=== PATIENT | male | born 1940 | race Caucasian/White ===

== ENCOUNTER 2019-07-25 10:04 | Emergency (ER) | payer MEDICARE, SELFPAY ==
[2019-07-25 10:10] VITALS: BP 136/74; PULSE 58; RESP 14; TEMP 35.8; O2SAT 98; BMI 27.6
--- NOTE | 2019-07-25 10:48 | DI.US.S_ITS ---
PROCEDURE: US PERIPH VENOUS LOW EXTREM LT INDICATIONS: LEFT THIGH BRUISE; HX DVT TECHNIQUE: Real-time imaging, as well as color and pulse Doppler interrogation, were performed of the lower extremity deep veins from the inguinal ligament to the popliteal fossa. COMPARISON: US, US VENOUS LEG DPLX UNI LT, 03/18/2017, 10:42. FINDINGS: The common femoral, femoral and popliteal veins are normally compressible, and free of intraluminal thrombus. Color and pulse Doppler demonstrate normal phasic intraluminal flow. There is normal augmentation response to distal compression maneuver. Left posterior thigh in the region of bruising demonstrates a heterogeneous hypoechoic fluid collection measuring 3.3 x 1 x 2.7 cm. No internal vascularity. No surrounding hyperemia. IMPRESSION: 1. No left lower extremity DVT. 2. Left posterior thigh small hematoma. Dictated by: Ed Ortiz M.D. on 07/25/2019 at 11:30 Approved by: Ed Ortiz M.D. on 07/25/2019 at 11:33
[2019-07-25 11:57] LABS: INR 2.4 (0.9-1.3); Prothrombin Time 27.8 SECONDS (10.1-12.7)
--- NOTE | 2019-07-25 12:21 | ED_ITS ---
HPI - Extremity Problem <DA Hernández - Last Filed: 07/25/19 14:05> General Chief complaint: Extremity Problem,Nontraumatic Stated complaint: trying to prevent a blood clot on lower left leg Time Seen by Provider: 07/25/19 11:41 Source: patient Mode of arrival: Ambulatory History of Present Illness HPI Narrative: 79-year-old male with a history of a pacemaker, currently on warfarin, history of DVT, history of PE, and a IVC filter, presents to the emergency department complaining of left leg bruising. He states last week he was lifting bail of hay into the pen to feed the cows when it broke open and he hit his leg against the pen. Patient noticed bruising on the outer side of his left leg that has continuing to progress down his leg. Patient is nervous that he may develop blood clot has this is the same like he had a blood clot in a few years ago. Patient denies any calf pain, severe leg pain, difficulty walking, nausea, vomiting, diarrhea, chest pain, shortness of breath, or other concerns. Related Data Home Medications Medication Instructions Recorded Confirmed [NYQUIL] #0 10/15/16 Zzyquil 1 dose PO BEDTIME PRN 07/25/19 07/25/19 atorvastatin 10 mg PO DAILY 07/25/19 07/25/19 lisinopril 5 mg PO DAILY 07/25/19 07/25/19 sotalol 120 mg PO DAILY 07/25/19 07/25/19 warfarin 07/25/19 Allergies Allergy/AdvReac Type Severity Reaction Status Date / Time No Known Drug Allergies Allergy Verified 07/25/19 10:09 Review of Systems <DA Hernández - Last Filed: 07/25/19 14:05> Review of Systems Narrative: REVIEW OF SYSTEMS: GENERAL: Denies fever or chills. HENT: No head trauma. EYES: No vision changes. CARDIOVASCULAR: No chest pain or syncope. RESPIRATORY: No shortness of breath or cough. GASTROINTESTINAL: No nausea, vomiting, diarrhea, or constipation. MUSCULOSKELETAL: Left leg bruising, see HPI. INTEGUMENTARY: No rash, lesions, or pruritus. NEURO: No numbness, tingling. PSYCH: No behavior or mood changes. Patient History <DA Hernández - Last Filed: 07/25/19 14:05> Medical History DVT (deep venous thrombosis) (Acute) Pulmonary embolism (Acute) Social History Smoking Status: Never smoker Smoking Status: Never smoker Exam <DA Hernández - Last Filed: 07/25/19 14:05> Initial Vital Signs Initial Vital Signs: Vital Signs Temperature 96.4 F L 07/25/19 10:10 Pulse Rate 58 L 07/25/19 10:10 Respiratory Rate 14 07/25/19 10:10 Blood Pressure 136/74 07/25/19 10:10 Pulse Oximetry 98 07/25/19 10:10 PHYSICAL EXAMINATION: GENERAL: Well groomed, alert, and cooperative. Answers questions promptly and appropriately. Vital signs noted. HENT: Normocephalic, atraumatic. Ear canals patent. Oral mucosa is pink and moist. EYES: Conjunctiva pink, sclera white, no periorbital swelling. CHEST: Normal to inspection and without deformities. CARDIOVASCULAR: S1 and S2 sounds normal. Regular rate and rhythm, no murmurs, clicks, or bruits. No pedal edema. RESPIRATORY: Normal respiratory rate, trachea midline, airway patent. No stridor, nasal flaring or accessory muscle use. Lungs are clear in all mcclellan without wheeze, rhonchi, or crackles. GASTROINTESTINAL: Bowel sounds normoactive. Abdomen is soft and non-tender. No organomegaly. MUSCULOSKELETAL: Dark purple ecchymosis noted on lateral aspect of left leg extending past need to calf (appears to be older in color due to small areas of green coloration). No lumps, extreme tenderness, induration, or erythema. No tenderness to knee, leg, calf, ankle, or hip. Normal gait and coordination. Equal tone and mass bilaterally. EXTREMITIES: CMS intact. Moves all extremities. SKIN: Warm, dry, soft, appropriate color for ethnicity. No lesions, rashes, or wounds. NEURO: Alert and Oriented X 3. Good coordination. No ataxia, or sensory deficits, or cognitive issues. PSYCH: Appropriate affect and mood. <Kitty Lambert DO - Last Filed: 07/26/19 13:10> Initial Vital Signs Initial Vital Signs: Vital Signs Temperature 96.4 F L 07/25/19 10:10 Pulse Rate 58 L 07/25/19 10:10 Respiratory Rate 14 07/25/19 10:10 Blood Pressure 136/74 07/25/19 10:10 Pulse Oximetry 98 07/25/19 10:10 Course <DA Hernández - Last Filed: 07/25/19 14:05> Orders Ordered: ED Orders 07/25/19 10:48 US periph venous low extrem lt Stat 07/25/19 11:42 Prothrombin Time INR Stat Consultations Consultation #1: Patient staffed with Dr. Lambert. Vital Signs Vital signs: Vital Signs - 8 hr 07/25/19 10:10 Temperature 96.4 F L Pulse Rate 58 L Respiratory Rate 14 Blood Pressure 136/74 Pulse Oximetry 98 <Kitty Lambert DO - Last Filed: 07/26/19 13:10> Orders Ordered: ED Orders 07/25/19 10:48 US periph venous low extrem lt Stat 07/25/19 11:42 Prothrombin Time INR Stat Vital Signs Vital signs: Vital Signs - 8 hr 07/25/19 10:10 Temperature 96.4 F L Pulse Rate 58 L Respiratory Rate 14 Blood Pressure 136/74 Pulse Oximetry 98 MDM - Extremity (Nontraumatic) <DA Hernández - Last Filed: 07/25/19 14:05> Medical Records Attestation: I reviewed the patient's medical records. Lab Data Attestation: I reviewed the patient's lab results. Labs: Lab Results 07/25/19 Range/Units 11:42 PT 27.8 H (10.1-12.7) SECONDS INR 2.4 H (0.9-1.3) Imaging Data US - DVT: Radiologist's Impression: [address] [address] Ultrasound Report Signed Patient: Rhona SalehDebbieJonathan#: [id number] : 1940Acct:[id number] Age/Sex: 79 / MDate of Service: 07/25/19 Loc: ED Accession Number: [id number] Procedure: US periph venous low extrem lt Ordering Provider: Kitty Lambert D.O. PROCEDURE: US PERIPH VENOUS LOW EXTREM LT INDICATIONS: LEFT THIGH BRUISE; HX DVT TECHNIQUE: Real-time imaging, as well as color and pulse Doppler interrogation, were performed of the lower extremity deep veins from the inguinal ligament to the popliteal fossa. COMPARISON: US, US VENOUS LEG DPLX UNI LT, 03/18/2017, 10:42. FINDINGS: The common femoral, femoral and popliteal veins are normally compressible, and free of intraluminal thrombus. Color and pulse Doppler demonstrate normal phasic intraluminal flow. There is normal augmentation response to distal compression maneuver. Left posterior thigh in the region of bruising demonstrates a heterogeneous hypoechoic fluid collection measuring 3.3 x 1 x 2.7 cm. No internal vascularity. No surrounding hyperemia. IMPRESSION: 1. No left lower extremity DVT. 2. Left posterior thigh small hematoma. Dictated by: Ed Ortiz M.D. on 07/25/2019 at 11:30 Approved by: Ed Ortiz M.D. on 07/25/2019 at 11:33 MDM Narrative Medical decision making narrative: 79-year-old male with a history of DVT and PE, currently on warfarin, and has IVC filter presenting for concerns of a blood clot in his left leg after significant bruising from hitting his leg on a piece of equipment in the barn. Ultrasound is negative for DVT but shows a small hematoma, INR is 2.4 and within therapeutic range. Less concern for DVT due to negative ultrasound, benign exam, and therapeutic INR-however patient has a history of developing a DVT on warfarin so she was strongly encouraged to have a repeat ultrasound done in 1-2 weeks for further evaluation. Differential includes hematoma, contusion, and muscle strain. Hematomas seen on ultrasound. Less likely strain due to lack of significant pain. Less concern for fracture due to lack of pain on examination and patient is able to bear weight without difficulty. Less likely cellulitis due to lack of erythema, wounds, or other suspicious findings. Patient and agreed with plan of care verbalized understanding. I gave patient very strict return precautions for any new or worsening symptoms. <Kitty Lambert, - Last Filed: 07/26/19 13:10> Lab Data Labs: Lab Results 07/25/19 Range/Units 11:42 PT 27.8 H (10.1-12.7) SECONDS INR 2.4 H (0.9-1.3) Discharge Plan Departure Patient Disposition: Home Clinical Impression: Contusion of leg Qualifiers: Encounter type: initial encounter Laterality: left Qualified Code(s): S80.12XA - Contusion of left lower leg, initial encounter Discharge Date/Time: 07/25/19 12:44 Instructions: DI for Contusion Activity Restrictions/Additional Instructions: Thank you for entrusting me with your care today. As discussed, your ultrasound is negative for a blood clot. Your INR is 2.4. Please follow up with your primary care provider in the next week for further evaluation and possible repeat ultrasound. Elevate your leg, you may use warm compresses to help with bruising. Return emergency department if he develops new or worsening symptoms such as increasing pain, calf pain, dizziness, shortness of breath, nausea, vomiting, diarrhea, or other concerns. Prescriptions: No Action [NYQUIL] Qty: 0 RF: 0 atorvastatin 10 mg tablet 10 mg PO DAILY RF: 0 sotalol 80 mg tablet 120 mg PO DAILY RF: 0 warfarin 5 mg tablet RF: 0 lisinopril 5 mg tablet 5 mg PO DAILY RF: 0 Zzyquil 1 dose PO BEDTIME PRN (Reason: Sleep) RF: 0
== END 2019-07-25 12:44 | disposition home or self-care (01) ==
PROVIDERS: Emergency Medicine; Emergency Provider Nurse Practitioner; Family Provider Internal Medicine
DX: S80.12XA Contusion of left lower leg, initial encounter (principal); I82.409 Acute embolism and thrombosis of unspecified deep veins of unspecified lower extremity; I26.99 Other pulmonary embolism without acute cor pulmonale; Z95.0 Presence of cardiac pacemaker; Z79.01 Long term (current) use of anticoagulants
CPT/HCPCS: 36415; 85610; 93971; 99283; 99284

== ENCOUNTER 2020-05-14 09:28 | Observation (INO) | payer MEDICARE, SELFPAY ==
[2020-05-14] VITALS (10 sets, daily range): BP systolic 113–127; BP diastolic 56–90; PULSE 61–68; RESP 14–39; TEMP 36.1–36.4; O2SAT 93–97; BMI 27.0
--- NOTE | 2020-05-14 09:30 | ED_ITS ---
HPI - General Adult General Chief complaint: Chest Pain Stated complaint: Chest hurts,weak legs, no air if exerts Time Seen by Provider: 05/14/20 09:30 Source: patient Mode of arrival: Ambulatory Limitations: no limitations History of Present Illness HPI narrative: Patient is an 79-year-old male. 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 Here for evaluation of to 3 days of what he thinks is a cold. He states that a couple days ago he started to feel chilled. He then became congested was having a cough. Denies any fevers. Did have some upper back pain and thought that it was his kidneys. He started to drink more water and that seems to have improved. He denies any chest pain. Last evening stated that he had to get up from sleeping because he could lay down because he became short of breath and was coughing. He contacted his primary doctor today the patient states refused to see him because of the potential for COVID-19 and instructed him to come to the emergency department. Related Data Home Medications Medication Instructions Recorded Confirmed [NYQUIL] #0 10/15/16 Zzyquil 1 dose PO BEDTIME PRN 07/25/19 07/25/19 atorvastatin 10 mg PO DAILY 07/25/19 07/25/19 lisinopril 5 mg PO DAILY 07/25/19 07/25/19 sotalol 120 mg PO DAILY 07/25/19 07/25/19 warfarin 07/25/19 Allergies Allergy/AdvReac Type Severity Reaction Status Date / Time No Known Drug Allergies Allergy Verified 07/25/19 10:09 Review of Systems Constitutional Constitutional: Reports chills, Reports fatigue, Denies fever(s), Denies headache(s) and Reports lethargy Eyes Eyes: Denies change in vision ENT Ears, Nose, Mouth, and Throat: Denies headache(s) Cardiovascular Cardiovascular: Denies chest pain, Reports dyspnea on exertion and Reports orthopnea Respiratory Respiratory: Reports cough and Reports dyspnea on exertion Gastrointestinal Gastrointestinal: Denies change in bowel habits, Denies nausea and Denies vomiting Genitourinary Genitourinary: Denies dysuria Genitourinary: Denies dysuria Musculoskeletal Musculoskeletal: Denies arthralgias and Denies myalgias Integumentary/Breasts Skin/Breast: Denies lesions and Denies rash Neurologic Neurologic: Denies headache(s) Psychiatric Psychiatric: Denies depression Endocrine Endocrine: Reports fatigue Hematologic/Lymphatic Comments: On anticoagulation Allergic/Immunologic Allergic/Immunologic: Denies urticaria Patient History Medical History Bradycardia DVT (deep venous thrombosis) Pacemaker Pulmonary embolism Social History Smoking Status: Never smoker Smoking Status: Never smoker Exam Initial Vital Signs Initial Vital Signs: Vital Signs Temperature 97.1 F L 05/14/20 09:38 Pulse Rate 65 05/14/20 09:38 Respiratory Rate 18 05/14/20 09:38 Blood Pressure 126/75 05/14/20 09:38 Pulse Oximetry 97 05/14/20 09:38 Const General: cooperative and comfortable Limitations: mental status not altered HENMT Head: normal to inspection and normocephalic Resp Effort & Inspection: normal respiratory effort Auscultation: clear to auscultation bilaterally Cardio Rate: regular rate Rhythm: regular rhythm GI Inspection: non-distended Palpation: soft Back/Spine/Pelvis Back: No CVA tenderness Neuro General: patient alert and patient awake Cognition: normal cognition Speech: speech normal Extrem General: normal to inspection and capillary refill normal Psych Appearance: grossly normal and well kempt Scores GCS Ishaan coma scale eye opening: Spontaneous Ishaan coma scale verbal response: Orientated Ishaan coma scale motor response: Obey commands Ishaan coma scale total score: 15 Course Orders Ordered: ED Orders 05/14/20 09:31 XR chest 1V Stat 05/14/20 09:38 Complete Blood Count AUTO DIFF Stat Comprehensive Metabolic Panel Stat Lipase Stat NT-proBNP (BNP-Adult 18+) Stat Partial Thromboplastin Time Stat Procalcitonin Stat Prothrombin Time INR Stat Troponin & CK Cardiac Panel Stat 05/14/20 09:45 COVID19 Stat 05/14/20 09:47 EKG-12 Lead Stat Discontinued Medications Furosemide (Furosemide 100 Mg/10 Ml Vial) 60 mg IV NOW ONE Stop: 05/14/20 10:22 Last Admin: 05/14/20 10:30 Dose: 60 mg Documented by: Vital Signs Vital signs: Vital Signs - 8 hr 05/14/20 09:38 05/14/20 09:39 05/14/20 10:00 Temperature 97.1 F L Pulse Rate 65 64 61 Respiratory Rate 18 29 H 29 H Blood Pressure 126/75 Pulse Oximetry 97 97 97 05/14/20 10:30 05/14/20 11:00 Temperature Pulse Rate 62 65 Respiratory Rate 39 H 27 H Blood Pressure Pulse Oximetry 94 96 Medical Decision Making Lab Data Lab results reviewed: Yes I reviewed the patient's lab results. Result diagrams: 05/14/20 09:38 05/14/20 09:38 Labs: Lab Results 05/14/20 05/14/20 05/14/20 Range/Units 09:38 09:38 09:38 WBC 6.3 (4.5-11.0) X10^3/uL RBC 5.44 (4.5-5.9) X10^6/uL Hgb 15.1 (13.5-17.5) g/dL Hct 45.5 (41-53) % MCV 83.7 (80-100) fL MCH 27.7 (26-34) PG MCHC 33.1 (30-36) % RDW 15.2 H (11.6-14.8) % Plt Count 210 (150-400) X10^3/uL Neut % (Auto) 57.8 (50-75) % Lymph % (Auto) 29.7 (25-40) % Gem % (Auto) 11.0 (3-14) % Eos % (Auto) 0.8 L (2-4) % Baso % (Auto) 0.7 (0-2) % Neut # (Auto) 3600 (2840-2625) /uL Lymph # (Auto) 1900 (5869-9685) /uL Gem # (Auto) 700 (0-900) /uL Eos # (Auto) 100 (0-450) /uL Baso # (Auto) 0 (0-100) /uL PT 29.9 H (10.1-12.7) SECONDS INR 2.6 H (0.9-1.3) APTT 40 H (26.4-36.2) SECONDS Sodium 136 L (137-145) mmol/L Potassium 4.3 (3.4-5.1) mmol/L Chloride 104 (98-107) mmol/L Carbon Dioxide 30 (22-32) mmol/L BUN 29 H (9-20) mg/dL Creatinine 1.19 (0.66-1.25) mg/dL Estimated GFR 58.8 L (>60) mL/min BUN/Creatinine Ratio 24.4 H (6-22) Glucose 65 L (80-110) mg/dL Calcium 9.2 (8.4-10.2) mg/dL Total Bilirubin 2.5 H (0.2-1.3) mg/dL AST 48 (17-59) IU/L ALT 71 H (<50) IU/L Alkaline Phosphatase 109 (38-126) U/L Total Creatine Kinase 87 (55-170) U/L CK-MB (CK-2) TNP CK-MB (CK-2) Rel Index TNP Troponin I 0.063 H (0.01-0.034) ng/mL NT-Pro-B Natriuret Pep 7590 H (<450) pg/mL Total Protein 7.1 (6.3-8.2) g/dL Albumin 3.9 (3.5-5.0) g/dL Globulin 3.2 (1.7-4.1) g/dL Albumin/Globulin Ratio 1.2 (1.0-2.8) Lipase 92 (23-300) U/L Procalcitonin (<0.5) ng/mL COVID-19 PCR (Negative) 05/14/20 05/14/20 Range/Units 09:38 09:45 WBC (4.5-11.0) X10^3/uL RBC (4.5-5.9) X10^6/uL Hgb (13.5-17.5) g/dL Hct (41-53) % MCV (80-100) fL MCH (26-34) PG MCHC (30-36) % RDW (11.6-14.8) % Plt Count (150-400) X10^3/uL Neut % (Auto) (50-75) % Lymph % (Auto) (25-40) % Gem % (Auto) (3-14) % Eos % (Auto) (2-4) % Baso % (Auto) (0-2) % Neut # (Auto) (3005-7656) /uL Lymph # (Auto) (7209-4870) /uL Gem # (Auto) (0-900) /uL Eos # (Auto) (0-450) /uL Baso # (Auto) (0-100) /uL PT (10.1-12.7) SECONDS INR (0.9-1.3) APTT (26.4-36.2) SECONDS Sodium (137-145) mmol/L Potassium (3.4-5.1) mmol/L Chloride (98-107) mmol/L Carbon Dioxide (22-32) mmol/L BUN (9-20) mg/dL Creatinine (0.66-1.25) mg/dL Estimated GFR (>60) mL/min BUN/Creatinine Ratio (6-22) Glucose (80-110) mg/dL Calcium (8.4-10.2) mg/dL Total Bilirubin (0.2-1.3) mg/dL AST (17-59) IU/L ALT (<50) IU/L Alkaline Phosphatase (38-126) U/L Total Creatine Kinase (55-170) U/L CK-MB (CK-2) CK-MB (CK-2) Rel Index Troponin I (0.01-0.034) ng/mL NT-Pro-B Natriuret Pep (<450) pg/mL Total Protein (6.3-8.2) g/dL Albumin (3.5-5.0) g/dL Globulin (1.7-4.1) g/dL Albumin/Globulin Ratio (1.0-2.8) Lipase (23-300) U/L Procalcitonin < 0.05 (<0.5) ng/mL COVID-19 PCR Negative (Negative) Imaging Data Chest x-ray: Radiologist's Impression: [address] [id number] ReportSigned Patient: Kenny Saleh#: [id number]: 1940Acct:[id number]/Sex: 79 / MDate of Service: 05/14/20Loc: EDAccession Number: [id number] Procedure: XR chest 1V Ordering Provider: Janes Mireles D.O. PROCEDURE: XR CHEST 1V INDICATIONS: congestion TECHNIQUE: One view of the chest was acquired. COMPARISON: [facility], CHEST 2 VIEW, 01/11/2014, 9:01. FINDINGS: Surgical changes and devices: Pacemaker. Lungs and pleura: There is minimal blunting of the costophrenic angles bilaterally. Minimal increased vascularity. Mediastinum: Mediastinal contours appear normal. Heart size is markedly enlarged. Bones and chest wall: No suspicious bony lesions. Overlying soft tissues appear unremarkable. IMPRESSION: Cardiomegaly with minimal increased vascularity and blunting of the costophrenic angles suggestive of edema and trace effusions. Dictated by: Brenda Curiel M.D. on 05/14/2020 at 9:06 Approved by: Brenda Curiel M.D. on 05/14/2020 at 9:07 ECG Data Attestation: I personally reviewed and interpreted this ECG as follows: Prior ECG tracings: not available for review Interpretation: Sinus rhythm Ventricular rate is 62 Occasional atrial pacer spikes Nonspecific ST T wave changes MDM Narrative Medical decision making narrative: Patient is not hypoxic, not hypotensive, his physical exam and labs to include his BNP and chest x-ray are concerning for heart failure. I do not see a prior echocardiogram in our records here. He states he recently had a nuclear stress test and was told that things were unremarkable by his geodetic surveyor. Given his elevation in troponin I do feel that admission for continued diuresis and trending of the troponin and an echocardiogram is warranted. Discussed the case with Dr. duke manager of selection and assessment for Internal Medicine who accepts patient. Discussed the admission with the patient. Both he and his who is at bedside expressed understanding and agreement. Discharge Plan Departure Patient Disposition: Admitted As Inpatient Clinical Impression: CHF (congestive heart failure) Admit Date/Time: 05/14/20 11:03 Admit Provider: Yumiko Duke
[2020-05-14 09:46] LABS: Add Manual Diff / Slide Review NO; Basophils Absolute Auto 0 /uL (0-100); Basophils Percent Auto 0.7 % (0-2); Eosinophils Absolute Auto 100 /uL (0-450); Eosinophils Percent Auto 0.8 % (2-4); Hematocrit 45.5 % (41-53); Hemoglobin 15.1 g/dL (13.5-17.5); Lymphocytes Absolute Auto 1900 /uL (1100-4500); Lymphocytes Percent Auto 29.7 % (25-40); Mean Corpuscular HGB Conc 33.1 % (30-36); Mean Corpuscular Hemoglobin 27.7 PG (26-34); Mean Corpuscular Volume 83.7 fL (80-100); Monocytes Absolute Auto 700 /uL (0-900); Neutrophils Absolute Auto 3600 /uL (1500-7000); Neutrophils Percent Auto 57.8 % (50-75); Platelet Count 210 X10^3/uL (150-400); Red Blood Cell Count 5.44 X10^6/uL (4.5-5.9); Red Cell Distribution Width 15.2 % (11.6-14.8); White Blood Cell Count 6.3 X10^3/uL (4.5-11.0)
[2020-05-14 09:55] LABS: INR 2.6 (0.9-1.3); Prothrombin Time 29.9 SECONDS (10.1-12.7)
[2020-05-14 09:58] LABS: PTT Partial Thromboplastin Tim 40 SECONDS (26.4-36.2)
[2020-05-14 10:01] LABS: Alanine Aminotransferase 71 IU/L (<50); Albumin 3.9 g/dL (3.5-5.0); Albumin Globulin Ratio 1.2 (1.0-2.8); Alkaline Phosphatase 109 U/L (38-126); Aspartate Aminotransferase 48 IU/L (17-59); BUN Creatinine Ratio 24.4 (6-22); Bilirubin Total 2.5 mg/dL (0.2-1.3); Blood Urea Nitrogen 29 mg/dL (9-20); Calcium 9.2 mg/dL (8.4-10.2); Carbon Dioxide 30 mmol/L (22-32); Chloride 104 mmol/L (98-107); Creatine Kinase 87 U/L (55-170); Estimated Glomerular Filt Rate 58.8 mL/min (>60); Globulin 3.2 g/dL (1.7-4.1); Glucose 65 mg/dL (80-110); HEMOLYSIS 23 (0-50); Lipase 92 U/L (23-300); Potassium 4.3 mmol/L (3.4-5.1); Sodium 136 mmol/L (137-145); Total Protein 7.1 g/dL (6.3-8.2)
[2020-05-14 10:13] LABS: NT-proBNP (BNP-Adult 18+) 7590 pg/mL (<450); Troponin I 0.063 ng/mL (0.01-0.034)
[2020-05-14 10:28] LABS: COVID19 -Nasal RAPID Negative (Negative)
[2020-05-14] MEDS: FUROSEMIDE 100 MG/10 ML VIAL 60 MG IV (10:30)
[2020-05-14 10:45] LABS: Procalcitonin < 0.05 ng/mL (<0.5)
--- NOTE | 2020-05-14 13:42 | PC.NURSE ---
Addendum entered by Damian Schultz R.N. 05/16/20 11:05: Disregard this nursing note, this was written on the wrong patient. Original Note: Patient is alert and orientated, VSS, lung sounds dim throughout. Patient was a direct admit. Having reactions to medications and hives on his body. Patient has hives on trunk, arms, and legs. Calomine lotion was ordered and applied for patient comfort and itching. Patient has PICC line that was placed while he had his last hospital visit here. Patient has wounds on both legs that he has been seen by home care for. Dressings were changed to Allevyn on both leg ulcers.
--- NOTE | 2020-05-14 13:49 | PM.HP.1 ---
History of Present Illness History of Present Illness Date Patient Seen: 05/14/20 Chief complaint: Chest hurts,weak legs, no air if exerts Narrative: The patient is an 79-year-old male with a history of paroxysmal atrial fibrillation, pacemaker placement, hyperlipidemia, who was in his usual state of health until a month ago. At that time the patient noted increasing shortness of breath with minimal exertion. 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 Patient is fairly active. He has noted over the past month increasing shortness of breath and being winded. He denies any orthopnea, any lower extremity edema. Patient has had some chest pressure. But no radiation to his neck. No diaphoresis. No nausea or vomiting. He is followed by Dr. Antoine Rowley's visual merchandising assistant in [place]. The patient had a nuclear stress test in December which was normal. His ejection fraction at that time was 43%. One year ago he had an echo which also showed an ejection fraction of 45%. The patient previously was on lisinopril but developed some lightheadedness with that. In the lisinopril was discontinued. The patient was evaluated in the emergency room. He had a mildly elevated troponin at 0.063. His proBNP was greater than 7500. He was given Lasix 60 mg IV x1 with significant urine output. Patient is admitted to the hospital at this time for treatment of congestive heart failure. He denies any palpitations. Although his visual merchandising assistant noted that he did have a 4 beat run of nonsustained VT. Pacemaker was checked and was functional in December. He denies any nausea vomiting or diarrhea. He has no fever. No cough. It no runny nose. No hematemesis ,melena or bright red blood per rectum. Patient History Medical History Bradycardia DVT (deep venous thrombosis) Pacemaker Pulmonary embolism Family & Social History Family History (Updated 05/14/20 @ 13:52 by Yumiko Duke MD) Mother Cancer Other Leukemia Social History: household members spouse Prior Living Arrangements House Safety & Behavioral: Feels Safe in Current Yes Environment Been Physically Hurt or No Threatened By a Person Suicidal Ideation Description None Suicide Plan Description No Plan Tobacco & Substance use: Smoking Status Never smoker alcohol intake never alcohol intake frequency 0-2 drinks per day Substance Use Type does not use Meds Home Medications and Allergies Home Medications Medication Instructions Recorded Confirmed Type atorvastatin 5 mg PO DAILY 07/25/19 05/14/20 History sotalol 120 mg PO DAILY 07/25/19 05/14/20 History warfarin 5 mg PO DAILY 07/25/19 05/14/20 History Allergies Allergy/AdvReac Type Severity Reaction Status Date / Time No Known Drug Allergies Allergy Verified 07/25/19 10:09 Review of Systems Review of Systems ROS: Yes All systems reviewed with the patient and are negative except as otherwise documented Exam Vital Signs (past 8 hours): - 05/14/20 09:38 05/14/20 09:39 05/14/20 10:00 Temperature 97.1 F L Pulse Rate 65 64 61 Respiratory Rate 18 29 H 29 H Blood Pressure 126/75 Pulse Oximetry 97 97 97 05/14/20 10:30 05/14/20 11:00 05/14/20 11:21 Temperature Pulse Rate 62 65 62 Respiratory Rate 39 H 27 H 27 H Blood Pressure 113/90 Pulse Oximetry 94 96 97 Oxygen Delivery Method Room Air Narrative Exam Narrative: Pleasant male in no acute distress HEENT: Normocephalic atraumatic, extraocular muscles are intact oropharynx is clear, neck is supple without adenopathy. There is minimal JVD noted bilaterally Lungs: Decreased breath with occasional scattered crackle Cardiac exam regular rate and rhythm normal S1-S2 Abdomen: Soft nontender nondistended without hepato splenomegaly Extremity: No edema Neuro exam: Cranial nerves are intact, strength is symmetric and equal, sensation is grossly intact, reflexes are equal Psychiatric exam: Patient is awake alert and appropriate, no delusions or hallucinations. Objective Labs Result Diagrams: 05/14/20 09:38 05/14/20 09:38 Labs: Laboratory Results - last 24 hr 05/14/20 05/14/20 05/14/20 09:38 09:38 09:38 WBC 6.3 RBC 5.44 Hgb 15.1 Hct 45.5 MCV 83.7 MCH 27.7 MCHC 33.1 RDW 15.2 H Plt Count 210 Neut % (Auto) 57.8 Lymph % (Auto) 29.7 Russell % (Auto) 11.0 Eos % (Auto) 0.8 L Baso % (Auto) 0.7 Neut # (Auto) 3600 Lymph # (Auto) 1900 Russell # (Auto) 700 Eos # (Auto) 100 Baso # (Auto) 0 PT 29.9 H INR 2.6 H APTT 40 H Sodium 136 L Potassium 4.3 Chloride 104 Carbon Dioxide 30 BUN 29 H Creatinine 1.19 Estimated GFR 58.8 L BUN/Creatinine Ratio 24.4 H Glucose 65 L Calcium 9.2 Total Bilirubin 2.5 H AST 48 ALT 71 H Alkaline Phosphatase 109 Total Creatine Kinase 87 CK-MB (CK-2) TNP CK-MB (CK-2) Rel Index TNP Troponin I 0.063 H NT-Pro-B Natriuret Pep 7590 H Total Protein 7.1 Albumin 3.9 Globulin 3.2 Albumin/Globulin Ratio 1.2 Lipase 92 Procalcitonin COVID-19 PCR 05/14/20 05/14/20 09:38 09:45 WBC RBC Hgb Hct MCV MCH MCHC RDW Plt Count Neut % (Auto) Lymph % (Auto) Russell % (Auto) Eos % (Auto) Baso % (Auto) Neut # (Auto) Lymph # (Auto) Russell # (Auto) Eos # (Auto) Baso # (Auto) PT INR APTT Sodium Potassium Chloride Carbon Dioxide BUN Creatinine Estimated GFR BUN/Creatinine Ratio Glucose Calcium Total Bilirubin AST ALT Alkaline Phosphatase Total Creatine Kinase CK-MB (CK-2) CK-MB (CK-2) Rel Index Troponin I NT-Pro-B Natriuret Pep Total Protein Albumin Globulin Albumin/Globulin Ratio Lipase Procalcitonin < 0.05 COVID-19 PCR Negative Assessment & Plan Assessment & Plan narrative: Impression 1. 79-year-old male admitted to the hospital with acute decompensated systolic heart failure -echocardiogram 1 year ago revealed ejection fraction of 45% -patient previously on an ADDIE-inhibitor which was discontinued due to low blood pressure and dizziness -discussed with Dr. Rowley cardiology. He agreed with plan to continue diuresis. -will resume low-dose ADDIE-inhibitor at 2.5 mg per day 2. Type 2 myocardial infarction -cardiac enzymes 0.068 -patient describes chest pressure intermittently -nuclear stress test in December was normal -will start low-dose aspirin at 81 mg -trend cardiac enzymes 3. Paroxysmal atrial fibrillation -continue sotalol -continue warfarin 4. Hyperlipidemia -continue statin -will check lipids 5. History of pulmonary embolus -on therapeutic warfarin Patient reports he is a full code will note that his record accordingly His at the bedside is his surrogate decision maker and is noted in the record Quality VTE Deep Vein Thrombosis/Pulmonary Embolism Present on Admission: No
--- NOTE | 2020-05-14 14:58 | PC.NURSE ---
Safe hand off from ED. Patient arrived via stretcher and was able to ambulate to the bed w/o assistance. Patient VSS, lung sounds clear. Patient has no complaints of chest pain or dizziness. Patient is SOB on exertion but not while sitting in bed, and is 94% on Room Air.
[2020-05-14 15:09] LABS: BUN Creatinine Ratio 27.7 (6-22); Blood Urea Nitrogen 31 mg/dL (9-20); Calcium 9.5 mg/dL (8.4-10.2); Carbon Dioxide 31 mmol/L (22-32); Chloride 100 mmol/L (98-107); Cholesterol 137 mg/dL (140-199); Estimated Glomerular Filt Rate > 60.0 mL/min (>60); Glucose 123 mg/dL (80-110); HDL Cholesterol 47 mg/dL (40-60); LDL Cholesterol Calculated 63 mg/dL (<100); Sodium 135 mmol/L (137-145); Triglycerides 136 mg/dL (35-150)
[2020-05-14 15:10] LABS: HEMOLYSIS 105 (0-50)
[2020-05-14 15:11] LABS: Potassium 4.9 mmol/L (3.4-5.1)
[2020-05-14 15:21] LABS: Troponin I 0.068 ng/mL (0.01-0.034)
[2020-05-14] MEDS: WARFARIN 5 MG TABLET PO (17:16)
[2020-05-14] MEDS: ATORVASTATIN 20 MG TABLET 5 MG PO (21:37)
[2020-05-14] MEDS: DOCUSATE 100 MG CAPSULE PO (21:38)
[2020-05-14] MEDS: SOTALOL 80 MG TABLET PO (22:16)
--- NOTE | 2020-05-15 01:57 | PC.NURSE ---
0045 Patient assessed. Is alert and oriented. Breath sounds CTA with RA sat of 93%; denies SOB. On continuous oximetry. HRR w/telemetry reading of SR w/1st degree AVB + BBB; denies chest tightness/pain/discomfort. Denies nausea. BT present and abdomen is soft. Denies dysuria, frequency or urgency with urination; using bedside urinal. Is independent with mobility although states he was feeling weak earlier today. Denies pain. Wearing bilateral calf SCD's. Denies any recent falls. Fall risk score is moderate and bed alarm is activated for safety.
[2020-05-15 03:50] VITALS: BP 124/85; PULSE 70; RESP 16; TEMP 36.4; O2SAT 94
[2020-05-15 07:00] VITALS: BP 131/90; PULSE 70; RESP 16; TEMP 35.9; O2SAT 93
[2020-05-15 08:44] LABS: BUN Creatinine Ratio 27.4 (6-22); Blood Urea Nitrogen 31 mg/dL (9-20); Calcium 9.4 mg/dL (8.4-10.2); Carbon Dioxide 31 mmol/L (22-32); Chloride 101 mmol/L (98-107); Estimated Glomerular Filt Rate > 60.0 mL/min (>60); Glucose 127 mg/dL (80-110); HEMOLYSIS < 15 (0-50); Potassium 4.6 mmol/L (3.4-5.1); Sodium 134 mmol/L (137-145)
[2020-05-15 08:54] LABS: Troponin I 0.069 ng/mL (0.01-0.034)
[2020-05-15] MEDS: ASPIRIN EC 81 MG TABLET PO (09:05)
[2020-05-15] MEDS: DOCUSATE 100 MG CAPSULE PO (09:05)
[2020-05-15] MEDS: SODIUM CHLORIDE 0.9% FLUSH 10 ML IV (09:06)
[2020-05-15] MEDS: lisinopriL 5 MG TABLET 2.5 MG PO (09:06)
[2020-05-15] MEDS: FUROSEMIDE 40 MG/4 ML VIAL IV (09:06)
[2020-05-15] MEDS: SOTALOL 80 MG TABLET 40 MG PO (09:07)
[2020-05-15 11:00] VITALS: BP 101/64; PULSE 59; RESP 16; TEMP 36.2; O2SAT 97
--- NOTE | 2020-05-15 11:31 | CM.DANOTE ---
Addendum entered by Isabelle Abrams LPN 05/15/20 11:52: Met with pt and his , at bedside. Both say they are pleased that pt can d/c home today. Pt's spouse does wonder about the potassium that pt takes and how the change in Lasix will affect that. Dr. Duke is updated and says she will address this with them before they leave today. P: home: cardiology and PCP (Dr. Purnima Kaminski) follow-up. Original Note: Discharge Planning/Care Management Case received, EMR reviewed and spoke with Dr. Duke in [place]. She stated she had conferred with pt's grinder outside diameter in [place], medications has been recommended and pt was stable for d/c home today. Payer: Medicare and [employer] Will check in with pt now. Advanced directive, confirm from FAMILY Start: 05/14/20 12:50 Freq: Q24H Status: Active Protocol: Document 05/14/20 12:50 KLP (Rec: 05/14/20 13:00 KLP [id number]) Advance Directive, confirm on record Time 13:00 Person contacted patient Copy received No CM Discharge Assessment Start: 05/15/20 11:30 Freq: Status: Active Protocol: Document 05/15/20 11:30 ITV (Rec: 05/15/20 11:31 ITV [id number]) Discharge Planning Assessment Advance Directives? Yes History Provided By Patient,Medical Record Has Patient been admitted in last 30 No days? Prior Living Arrangements House Household Members spouse Independent with ADL's Yes Is patient alert and oriented? Yes Discharge Plan Home
[2020-05-15 11:40] VITALS: PULSE 59; RESP 16; O2SAT 97
--- NOTE | 2020-05-15 14:31 | PC.NURSE ---
Pt denies SOB with exertion, denies chest pain; Tele SR 1st AV block, pulse regular; fine crackles to left lower posterior; RA; this RN reviewed all CHF instructions, f/u appt, and rx medications, including side effects with pt and pt's ; pt d/c at 1400 via wheelchair with personal belongings in hand to private vehicle
--- NOTE | 2020-05-16 16:43 | PM.DS.1 ---
History of Present Illness History of Present Illness Chief complaint: Chest hurts,weak legs, no air if exerts Narrative: The patient is an 79-year-old male with a history of paroxysmal atrial fibrillation, pacemaker placement, hyperlipidemia, who was in his usual state of health until a month ago. At that time the patient noted increasing shortness of breath with minimal exertion. 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 Patient is fairly active. He has noted over the past month increasing shortness of breath and being winded. He denies any orthopnea, any lower extremity edema. Patient has had some chest pressure. But no radiation to his neck. No diaphoresis. No nausea or vomiting. He is followed by Dr. Antoine Rowley's full time babysitter in [place]. The patient had a nuclear stress test in December which was normal. His ejection fraction at that time was 43%. One year ago he had an echo which also showed an ejection fraction of 45%. The patient previously was on lisinopril but developed some lightheadedness with that. In the lisinopril was discontinued. The patient was evaluated in the emergency room. He had a mildly elevated troponin at 0.063. His proBNP was greater than 7500. He was given Lasix 60 mg IV x1 with significant urine output. Patient is admitted to the hospital at this time for treatment of congestive heart failure. He denies any palpitations. Although his full time babysitter noted that he did have a 4 beat run of nonsustained VT. Pacemaker was checked and was functional in December. He denies any nausea vomiting or diarrhea. He has no fever. No cough. It no runny nose. No hematemesis ,melena or bright red blood per rectum. Discharge Providers Provider Date of admission: 05/14/20 11:03 Discharge Date: 05/15/20 Discharge provider: Yumiko Duke MD Summary Hospital Course Discharge Diagnosis: 1. Acute systolic heart failure, present on admission 2. Paroxysmal atrial fibrillation, on Coumadin 3. Chest pain, with mildly elevated troponin, likely related to acute congestive heart failure 4. Hyperlipidemia 5. History of permanent pacemaker placed Hospital Course: Patient was admitted to the hospital for progressive orthopnea, dyspnea on exertion and acute congestive heart failure. Prior echo revealed an ejection fraction of 40-45%. Case was discussed with his full time babysitter Dr. Rowley who recommended diuresis and low-dose ADDIE-inhibitor. The patient had mildly elevated troponin. However he had a stress test done in December which was completely normal. It was felt that further workup of his mildly elevated troponins would not be indicated at this time. The patient had significant improvement after diuresis. His orthopnea resolved. Dyspnea on exertion improved. He was deemed appropriate for discharge and arrangements were made for him to discharge home. Status at Discharge Cognitive/behavioral status at discharge: oriented Functional status at discharge: independent ambulation Overall status at discharge: patient is back to baseline Time Spent with Patient Time spent: Less than 30 minutes Exam Vital Signs (past 8 hours): Oxygen Delivery Method Room Air Oxygen Flow Rate 0 Narrative Exam Narrative: Delightful gentleman in no obvious distress Lungs: Decreased breath sounds but clear to auscultation Cardiac exam: Regular rate and rhythm normal S1-S2 with a 2/6 systolic ejection Abdomen: Soft and nontender Extremities: No edema Objective Labs Result Diagrams: 05/14/20 09:38 05/15/20 08:15 [facility] Medical History Bradycardia DVT (deep venous thrombosis) Pacemaker Pulmonary embolism Family History (Updated 05/14/20 @ 13:52 by Yumiko Duke MD) Mother Cancer Other Leukemia Social History household members: spouse Smoking Status: Never smoker alcohol intake: never Discharge Assessment & Plan Assessment and Plan Assessment: 1. Acute systolic heart failure 2. Chronic atrial fibrillation 3. Hyperlipidemia 4. Permanent pacemaker placed Plan of Treatment: Patient is discharged home on lisinopril 2.5 plus furosemide 20 mg per day He will follow-up with his full time babysitter in 1-2 weeks Patient is to continue his prior medications Discharge Plan Discharge Plan Patient Disposition: Home Discharge orders & Medications Prescriptions: New lisinopril 5 mg Tablet 2.5 mg PO DAILY Qty: 30 RF: 0 furosemide [Lasix] 20 mg tablet 20 mg PO DAILY Qty: 30 RF: 0 Continued atorvastatin 10 mg tablet 5 mg PO DAILY RF: 0 sotalol 80 mg tablet 120 mg PO DAILY RF: 0 warfarin 5 mg tablet 5 mg PO DAILY RF: 0 Discharge Health Status Multidrug resistant organism: No MDRO Diet/Activity/Treatments Diet: Low-sodium and Low-cholesterol Visit Report/Discharge Packet Instructions: DI for Heart Failure, DI for Prescription Opioid Use Quality VTE Deep Vein Thrombosis/Pulmonary Embolism Present on Admission: No
== END 2020-05-15 14:00 | disposition home or self-care (01) ==
LOC: ED 10:38 → AC 11:14
PROVIDERS: Admitting Provider Internal Medicine; Emergency Provider Emergency Medicine; Family Provider Internal Medicine; Referring Provider Emergency Medicine; Visit Provider Internal Medicine
DX: I50.21 Acute systolic (congestive) heart failure (principal); I21.A1 Myocardial infarction type 2; I48.0 Paroxysmal atrial fibrillation; E78.5 Hyperlipidemia, unspecified; Z86.711 Personal history of pulmonary embolism; Z79.01 Long term (current) use of anticoagulants; Z11.59 Encounter for screening for other viral diseases; Z95.0 Presence of cardiac pacemaker
CPT/HCPCS: 36415; 71045; 80048; 80053; 80061; 82550; 83690; 83880; 84145; 84484; 85025; 85610; 85730; 87635; 93005; 94762; 96374; 99282; 99284; G0378; J1940

== ENCOUNTER → 2020-07-12 10:46 | Outpatient (CLI) | payer MEDICARE, SELFPAY ==
[2020-05-14 12:41] VITALS: BMI 27.0
[2020-07-12 10:59] LABS: Bacteria Urine None Seen; WBC Urine None Seen (0-5/HPF)
[2020-07-12 11:44] LABS: Alanine Aminotransferase 25 IU/L (<50); Albumin 4.1 g/dL (3.5-5.0); Albumin Globulin Ratio 1.4 (1.0-2.8); Alkaline Phosphatase 84 U/L (38-126); Aspartate Aminotransferase 34 IU/L (17-59); BUN Creatinine Ratio 24.2 (6-22); Bilirubin Total 1.4 mg/dL (0.2-1.3); Blood Urea Nitrogen 31 mg/dL (9-20); Calcium 9.3 mg/dL (8.4-10.2); Carbon Dioxide 33 mmol/L (22-32); Chloride 101 mmol/L (98-107); Estimated Glomerular Filt Rate 53.9 mL/min (>60); Globulin 2.9 g/dL (1.7-4.1); Glucose 86 mg/dL (80-110); HEMOLYSIS < 15 (0-50); Potassium 4.7 mmol/L (3.4-5.1); Sodium 137 mmol/L (137-145)
[2020-07-12 12:06] LABS: Appearance Urine UA CLEAR; Bilirubin Urine UA NEGATIVE (NEGATIVE); Color Urine UA YELLOW; Glucose Urine UA NEGATIVE (Negative); Ketones Urine UA NEGATIVE (NEGATIVE); Leukocyte Esterase Urine UA NEGATIVE (NEGATIVE); Nitrite Urine UA NEGATIVE (Negative); Occult Blood Urine UA TRACE-LYSED (Negative); Protein Urine UA NEGATIVE (Negative); Specific Gravity Urine UA >=1.030 (1.000-1.035); Urobilinogen Urine UA 0.2 E.U./dL (0.2)
[2020-07-12 12:10] LABS: Culture Indicated Urine Cult Not Indicated; Mucus Urine 2+ (Negative); RBC Urine 1-5/HPF (0-5/HPF)
== END ==
PROVIDERS: Family Provider Internal Medicine; PCP Family Medicine; Referring Provider Family Medicine; Visit Provider Family Medicine
DX: E85.9 Amyloidosis, unspecified (principal); I10 Essential (primary) hypertension
CPT/HCPCS: 36415; 80053; 81001

== ENCOUNTER → 2020-07-17 12:39 | Outpatient (CLI) | payer MEDICARE, SELFPAY ==
[2020-05-14 12:41] VITALS: BMI 27.0
--- NOTE | 2020-07-17 13:33 | DI.CT.S_ITS ---
PROCEDURE: CT ABDOMEN PELVIS W CON INDICATIONS: left Flank pain TECHNIQUE: After the administration of oral and intravenous contrast, 5 mm thick sections acquired from the diaphragms to the symphysis. 5 mm thick coronal and sagittal reformats were performed. For radiation dose reduction, the following was used: automated exposure control, adjustment of mA and/or kV according to patient size. COMPARISON: [facility], CT, ABDOMEN/PELVIS WITH CONTRAST, 01/18/2014, 15:05. FINDINGS: Image quality: Portions of the lower pelvis are suboptimally evaluated secondary to metallic streak artifact from clips at the level of the prostate bed. ABDOMEN: Lung bases: Lung bases are clear. Heart size is markedly enlarged. Solid organs: Liver is normal in size and enhancement. Steatosis is present. Gallbladder demonstrates dependent calcification without wall thickening, new compared to 2013. Biliary system is non-dilated. Pancreas enhances normally. Spleen is normal in size and enhancement. No adrenal nodules. Kidneys are normal in size and enhancement, without hydronephrosis. Peritoneum and bowel: Stomach, small bowel, and colon loops are normal in caliber and wall thickness. No free fluid or air. Scattered colonic diverticula are present. Nodes and vessels: No retroperitoneal or mesenteric adenopathy. Aorta and inferior vena cava are normal in caliber. IVC filter is unchanged in position. Miscellaneous: No ventral hernias. PELVIS: Genitourinary: Bladder wall thickness is normal. Miscellaneous: No inguinal hernias or adenopathy. Bones: No suspicious bony lesions. No vertebral body compression fractures. IMPRESSION: 1. No renal or ureteral calculi. 2. Diverticulosis. 3. Hepatic steatosis. 4. Cholelithiasis without imaging evidence of cholecystitis. Dictated by: Brenda Curiel M.D. on 07/17/2020 at 17:23 Approved by: Brenda Curiel M.D. on 07/17/2020 at 17:26
== END ==
PROVIDERS: Family Provider Internal Medicine; PCP Family Medicine; Referring Provider Family Medicine; Visit Provider Family Medicine
DX: R10.9 Unspecified abdominal pain (principal); K76.0 Fatty (change of) liver, not elsewhere classified; K80.20 Calculus of gallbladder without cholecystitis without obstruction; K57.90 Diverticulosis of intestine, part unspecified, without perforation or abscess without bleeding; I48.91 Unspecified atrial fibrillation; E85.9 Amyloidosis, unspecified; I10 Essential (primary) hypertension
CPT/HCPCS: 74177; Q9967

== ENCOUNTER → 2020-10-16 10:21 | Outpatient (CLI) | payer MEDICARE, SELFPAY ==
[2020-05-14 12:41] VITALS: BMI 27.0
[2020-10-16 10:29] LABS: RBC Urine None Seen (0-5/HPF)
[2020-10-16 10:58] LABS: Appearance Urine UA CLEAR; Bilirubin Urine UA NEGATIVE (NEGATIVE); Color Urine UA YELLOW; Glucose Urine UA TRACE g/dL (Negative); Ketones Urine UA NEGATIVE (NEGATIVE); Leukocyte Esterase Urine UA NEGATIVE (NEGATIVE); Nitrite Urine UA NEGATIVE (Negative); Occult Blood Urine UA NEGATIVE (Negative); Protein Urine UA NEGATIVE (Negative); Specific Gravity Urine UA >=1.030 (1.000-1.035); Urobilinogen Urine UA 0.2 E.U./dL (0.2); pH Urine UA 5.5 (4.5-8.0)
[2020-10-16 11:14] LABS: Bacteria Urine Few (2-10); Squamous Epithelial Cell Urine 0-1 /HPF (0-5/HPF); WBC Urine 0-1/HPF (0-5/HPF)
[2020-10-16 11:15] LABS: Culture Indicated Urine Cult Not Indicated; Mucus Urine 1+ (Negative)
[2020-10-16 11:39] LABS: Alanine Aminotransferase 20 IU/L (<50); Albumin 3.8 g/dL (3.5-5.0); Albumin Globulin Ratio 1.4 (1.0-2.8); Alkaline Phosphatase 82 U/L (38-126); Aspartate Aminotransferase 27 IU/L (17-59); BUN Creatinine Ratio 26.5 (6-22); Bilirubin Total 1.7 mg/dL (0.2-1.3); Blood Urea Nitrogen 30 mg/dL (9-20); Calcium 9.9 mg/dL (8.4-10.2); Carbon Dioxide 28 mmol/L (22-32); Chloride 102 mmol/L (98-107); Estimated Glomerular Filt Rate > 60.0 mL/min (>60); Globulin 2.8 g/dL (1.7-4.1); Glucose 87 mg/dL (80-110); HEMOLYSIS < 15 (0-50); Potassium 4.8 mmol/L (3.4-5.1); Sodium 136 mmol/L (137-145); Total Protein 6.6 g/dL (6.3-8.2)
== END ==
PROVIDERS: Family Provider Internal Medicine; PCP Family Medicine; Referring Provider Family Medicine; Visit Provider Family Medicine
DX: I10 Essential (primary) hypertension (principal); I50.22 Chronic systolic (congestive) heart failure; N28.9 Disorder of kidney and ureter, unspecified; E85.9 Amyloidosis, unspecified; R10.9 Unspecified abdominal pain
CPT/HCPCS: 36415; 80053; 81001

== ENCOUNTER → 2020-10-18 10:40 | Outpatient (CLI) | payer MEDICARE, SELFPAY ==
[2020-05-14 12:41] VITALS: BMI 27.0
--- NOTE | 2020-10-18 10:41 | DI.US.S_ITS ---
PROCEDURE: US ABDOMEN LIMITED INDICATIONS: LEFT FLANK PAIN TECHNIQUE: Real-time focused scanning was performed of the abdomen, with image documentation. COMPARISON: [facility], CT, CT ABDOMEN PELVIS W CON, 07/17/2020, 13:34. FINDINGS: Scanning is performed at the area of clinical concern. No abnormalities can be seen within the soft tissues of the left flank at this site. IMPRESSION: Negative ultrasound. Dictated by: Mike Szymanski M.D. on 10/18/2020 at 11:53 Approved by: Mike Szymanski M.D. on 10/18/2020 at 11:53
== END ==
PROVIDERS: Family Provider Internal Medicine; PCP Family Medicine; Referring Provider Family Medicine; Visit Provider Family Medicine
DX: R10.9 Unspecified abdominal pain (principal)
CPT/HCPCS: 76705

== ENCOUNTER 2020-12-22 16:10 | Emergency (ER) | payer MEDICARE, SELFPAY ==
[2020-05-14 12:41] VITALS: BMI 27.0
[2020-12-22] VITALS (15 sets, daily range): BP systolic 135–140; BP diastolic 64–93; PULSE 81–118; RESP 16–35; TEMP 36.7–38.4; O2SAT 90–99
[2020-12-22 16:48] LABS: Bacteria Urine None Seen
[2020-12-22 16:52] LABS: Appearance Urine UA CLEAR; Bilirubin Urine UA NEGATIVE (NEGATIVE); Color Urine UA YELLOW; Glucose Urine UA NEGATIVE (Negative); Ketones Urine UA NEGATIVE (NEGATIVE); Leukocyte Esterase Urine UA NEGATIVE (NEGATIVE); Nitrite Urine UA NEGATIVE (Negative); Occult Blood Urine UA 2+ (Negative); Protein Urine UA 1+ (Negative); Urobilinogen Urine UA 0.2 E.U./dL (0.2); pH Urine UA 5.5 (4.5-8.0)
[2020-12-22 17:17] LABS: Culture Indicated Urine Cult Not Indicated; RBC Urine 1-5/HPF (0-5/HPF); WBC Urine 0-1/HPF (0-5/HPF)
--- NOTE | 2020-12-22 17:53 | ED.GENADULT ---
HPI - General Adult <Taty Quijano MD - Last Filed: 12/25/20 17:45> General Chief complaint: Urogenital-Male Stated complaint: Not feeling well/Body Aches Time Seen by Provider: 12/22/20 17:14 Source: patient Mode of arrival: Ambulatory Limitations: no limitations History of Present Illness HPI narrative: With a history of atrial fibrillation anticoagulated on Coumadin,, hypertension, hyperlipidemia, amyloidosis, who presents with 3 days of generally not feeling well noticing urinary incontinence which is unusual for him, mild abdominal pain low-grade fevers chills this morning headachy, myalgias mild cough and mild diaphoresis. He is not complaining of palpitations or overt dyspnea. No gross neurologic findings but he is complaining of generalized weakness. Related Data Home Medications Medication Instructions Recorded Confirmed atorvastatin 10 mg tablet 5 mg PO DAILY 07/25/19 10/16/20 sotalol 80 mg tablet 120 mg PO DAILY 07/25/19 10/16/20 tafamidis 61 mg capsule 61 mg PO DAILY 10/16/20 10/16/20 Previous Rx's Medication Instructions Recorded lisinopril 5 mg tablet 2.5 mg PO DAILY #30 tab 05/15/20 furosemide 20 mg tablet (Lasix) 20 mg PO .COMPLEX #30 tab 07/17/20 warfarin 5 mg tablet 5 mg PO DAILY #90 tab 12/14/20 Allergies Allergy/AdvReac Type Severity Reaction Status Date / Time No Known Drug Allergies Allergy Verified 12/22/20 16:36 Review of Systems <Taty Quijano MD - Last Filed: 12/25/20 17:45> Review of Systems Narrative: Remainder of complete review of systems is otherwise unremarkable except for that included in the HPI. Patient History <Taty Quijano MD - Last Filed: 12/25/20 17:45> Medical History 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 Atrial fibrillation Bradycardia Chicken pox Diverticular disease DVT (deep venous thrombosis) Fractures Hypertension Measles Plantar warts Pulmonary embolism Surgical History Anesthesia History of appendectomy History of broken leg (~2013) History of carpal tunnel surgery (~2014) History of cataract surgery (~2009) History of knee replacement History of prostate surgery (~1999) History of surgery (~2015) Pacemaker (~2003) Family History Mother Cancer Other Leukemia Social History household members: spouse Smoking Status: Never smoker alcohol intake: never Smoking Status: Never smoker alcohol intake frequency: 0-2 drinks per day Substance Use Type: does not use Exam <Taty Quijano MD - Last Filed: 12/25/20 17:45> Narrative Exam Narrative: General: Appears generally unwell, slightly flushed, fatigued but but in no acute distress. HEENT: Moist mucous membranes, normal sclera with reactive pupils, Neck: No JVD, supple Respiratory: Lungs are clear to auscultation, no wheezing no rales no rhonchi. Full and symmetrical air movement Cardiac: Tachycardic with otherwise Regular rhythm no murmurs no bruits Abdomen: Soft, mild tenderness in the lower abdomen without rebound or guarding, good bowel tones, no flank pain Skin: Pale but otherwise Warm and dry, no rashes Neurologic: Grossly neurologically intact with no obvious asymmetries or abnormalities Extremities: No trauma, well perfused, no lower extremity edema Psych: Cooperative, appropriate insight and affect Initial Vital Signs Initial Vital Signs: Vital Signs Temperature 98.1 F 12/22/20 16:27 Pulse Rate 81 12/22/20 16:27 Respiratory Rate 16 12/22/20 16:27 Blood Pressure 140/93 H 12/22/20 16:27 Pulse Oximetry 96 12/22/20 16:27 <Dustin Becker DO - Last Filed: 12/23/20 03:19> Initial Vital Signs Initial Vital Signs: Vital Signs Temperature 98.1 F 12/22/20 16:27 Pulse Rate 81 12/22/20 16:27 Respiratory Rate 16 12/22/20 16:27 Blood Pressure 140/93 H 12/22/20 16:27 Pulse Oximetry 96 12/22/20 16:27 Course <Taty Quijano MD - Last Filed: 12/25/20 17:45> Orders Ordered: Discontinued Medications Fentanyl (Fentanyl 100 Mcg/2 Ml Inj) 50 mcg IV NOW ONE Stop: 12/23/20 01:23 Last Admin: 12/23/20 01:27 Dose: 50 mcg Documented by: SHAHID Furosemide (Furosemide 40 Mg/4 Ml Vial) 40 mg IV NOW ONE Stop: 12/23/20 02:09 Last Admin: 12/23/20 02:37 Dose: 40 mg Documented by: STEVEN Sodium Chloride (Normal Saline 0.9%) 1,000 mls @ 1,000 mls/hr IV BOLUS ONE Stop: 12/22/20 19:03 Last Infusion: 12/22/20 21:36 Dose: 0 mls/hr Documented by: Admin: 12/22/20 18:35 Dose: 1,000 mls/hr Documented by: SHAHID Piperacillin Sod/Tazobactam (Sod 4.5 gm/ Sodium Chloride) 100 mls @ 200 mls/hr IV NOW ONE Stop: 12/22/20 18:52 Last Infusion: 12/22/20 19:42 Dose: 0 mls/hr Documented by: Admin: 12/22/20 19:08 Dose: 200 mls/hr Documented by: SHAHID Lactated Ringer's (Lactated Ringers) 5,433 mls @ 1,811 mls/hr 30 ml/kg infuse over 3 hr (5433 ml) IV NOW ONE Stop: 12/22/20 21:50 Last Infusion: 12/23/20 02:11 Dose: 0 mls/hr Documented by: Admin: 12/22/20 19:22 Dose: 1,811 mls/hr Documented by: SHAHID Amiodarone HCl/Dextrose (Nexterone) 150 mg in 100 mls @ 600 mls/hr IV NOW ONE; Protocol Stop: 12/22/20 21:27 Last Infusion: 12/22/20 22:04 Dose: 0 mls/hr Documented by: Admin: 12/22/20 21:31 Dose: 600 mls/hr Documented by: SHAHID Ketorolac Tromethamine (Ketorolac 30 Mg/Ml Vial) 10 mg IV NOW ONE Stop: 12/22/20 21:07 Last Admin: 12/22/20 21:30 Dose: 10 mg Documented by: SHAHID Vital Signs Vital signs: Vital Signs - 8 hr 12/22/20 19:30 12/22/20 20:05 12/22/20 20:19 Temperature 101.1 F H Pulse Rate 113 H 108 H Respiratory Rate 34 H 32 H Blood Pressure Pulse Oximetry 92 12/22/20 20:30 12/22/20 21:00 12/22/20 21:30 Temperature 100.3 F H Pulse Rate 117 H 110 H 114 H Respiratory Rate 34 H 33 H 35 H Blood Pressure Pulse Oximetry 92 92 93 12/22/20 22:00 12/22/20 22:30 12/22/20 23:00 Temperature Pulse Rate 103 H 97 H 99 H Respiratory Rate Blood Pressure 135/88 Pulse Oximetry 90 L 95 93 12/22/20 23:30 12/23/20 00:00 12/23/20 00:23 Temperature Pulse Rate 105 H 104 H 107 H Respiratory Rate Blood Pressure 140/87 Pulse Oximetry 93 95 89 L 12/23/20 00:24 12/23/20 00:30 12/23/20 01:00 Temperature Pulse Rate 103 H 105 H 105 H Respiratory Rate Blood Pressure 140/87 Pulse Oximetry 93 93 94 12/23/20 01:30 12/23/20 01:57 12/23/20 02:00 Temperature Pulse Rate 124 H 102 H 102 H Respiratory Rate Blood Pressure 118/72 Pulse Oximetry 90 L 91 90 L 12/23/20 02:28 12/23/20 02:30 12/23/20 02:52 Temperature Pulse Rate 102 H 109 H 102 H Respiratory Rate 26 H 26 H Blood Pressure Pulse Oximetry 87 L 92 97 12/23/20 03:00 Temperature Pulse Rate 148 H Respiratory Rate Blood Pressure Pulse Oximetry 89 L <Dustin Becker DO - Last Filed: 12/23/20 03:19> Course Course Narrative: 1830 - Patient received in sign-out from Dr. Quijano. I performed independent history and physical exam. Patient is currently alert, awake and oriented. He is having no chest pain but complains only of some fatigue and shortness of breath and some abdominal pain. Additional Information: patient not having any pain in chest or SOB, but I have been called to the bedside as he has had a run of VT of 8 beats. Patient doing well, soon thereafter had another run. Amiodarone 150mg ordered. Repeat troponin pending. Patient will require transfer. Slight bump in troponin, no pain. No repeat tachycardic events since amiodarone. Hospitalist at [facility] ([facility]) happy to accept, though requests a call to cardiology Dr. De Leon (cardio) has reviewed the case and is happy to consult once patient gets up there. Recommends against heparin for now. Orders Ordered: Discontinued Medications Fentanyl (Fentanyl 100 Mcg/2 Ml Inj) 50 mcg IV NOW ONE Stop: 12/23/20 01:23 Last Admin: 12/23/20 01:27 Dose: 50 mcg Documented by: CTRANNA Furosemide (Furosemide 40 Mg/4 Ml Vial) 40 mg IV NOW ONE Stop: 12/23/20 02:09 Last Admin: 12/23/20 02:37 Dose: 40 mg Documented by: STEVEN Sodium Chloride (Normal Saline 0.9%) 1,000 mls @ 1,000 mls/hr IV BOLUS ONE Stop: 12/22/20 19:03 Last Infusion: 12/22/20 21:36 Dose: 0 mls/hr Documented by: Admin: 12/22/20 18:35 Dose: 1,000 mls/hr Documented by: CTRANNA Piperacillin Sod/Tazobactam (Sod 4.5 gm/ Sodium Chloride) 100 mls @ 200 mls/hr IV NOW ONE Stop: 12/22/20 18:52 Last Infusion: 12/22/20 19:42 Dose: 0 mls/hr Documented by: Admin: 12/22/20 19:08 Dose: 200 mls/hr Documented by: CTRANNA Lactated Ringer's (Lactated Ringers) 5,433 mls @ 1,811 mls/hr 30 ml/kg infuse over 3 hr (5433 ml) IV NOW ONE Stop: 12/22/20 21:50 Last Infusion: 12/23/20 02:11 Dose: 0 mls/hr Documented by: Admin: 12/22/20 19:22 Dose: 1,811 mls/hr Documented by: CTRANNA Amiodarone HCl/Dextrose (Nexterone) 150 mg in 100 mls @ 600 mls/hr IV NOW ONE; Protocol Stop: 12/22/20 21:27 Last Infusion: 12/22/20 22:04 Dose: 0 mls/hr Documented by: Admin: 12/22/20 21:31 Dose: 600 mls/hr Documented by: SHAHID Ketorolac Tromethamine (Ketorolac 30 Mg/Ml Vial) 10 mg IV NOW ONE Stop: 12/22/20 21:07 Last Admin: 12/22/20 21:30 Dose: 10 mg Documented by: SHAHID Vital Signs Vital signs: Vital Signs - 8 hr 12/22/20 19:30 12/22/20 20:05 12/22/20 20:19 Temperature 101.1 F H Pulse Rate 113 H 108 H Respiratory Rate 34 H 32 H Blood Pressure Pulse Oximetry 92 12/22/20 20:30 12/22/20 21:00 12/22/20 21:30 Temperature 100.3 F H Pulse Rate 117 H 110 H 114 H Respiratory Rate 34 H 33 H 35 H Blood Pressure Pulse Oximetry 92 92 93 12/22/20 22:00 12/22/20 22:30 12/22/20 23:00 Temperature Pulse Rate 103 H 97 H 99 H Respiratory Rate Blood Pressure 135/88 Pulse Oximetry 90 L 95 93 12/22/20 23:30 12/23/20 00:00 12/23/20 00:23 Temperature Pulse Rate 105 H 104 H 107 H Respiratory Rate Blood Pressure 140/87 Pulse Oximetry 93 95 89 L 12/23/20 00:24 12/23/20 00:30 12/23/20 01:00 Temperature Pulse Rate 103 H 105 H 105 H Respiratory Rate Blood Pressure 140/87 Pulse Oximetry 93 93 94 12/23/20 01:30 12/23/20 01:57 12/23/20 02:00 Temperature Pulse Rate 124 H 102 H 102 H Respiratory Rate Blood Pressure 118/72 Pulse Oximetry 90 L 91 90 L 12/23/20 02:28 12/23/20 02:30 12/23/20 02:52 Temperature Pulse Rate 102 H 109 H 102 H Respiratory Rate 26 H 26 H Blood Pressure Pulse Oximetry 87 L 92 97 12/23/20 03:00 Temperature Pulse Rate 148 H Respiratory Rate Blood Pressure Pulse Oximetry 89 L Medical Decision Making <Taty Quijano MD - Last Filed: 12/25/20 17:45> Lab Data Result diagrams: 12/22/20 18:22 12/22/20 18:22 Labs: Lab Results 12/22/20 12/22/20 12/22/20 Range/Units 16:42 18:22 18:22 WBC 9.6 (4.5-11.0) X10^3/uL RBC 5.70 (4.5-5.9) X10^6/uL Hgb 16.2 (13.5-17.5) g/dL Hct 49.5 (41-53) % MCV 86.8 (80-100) fL MCH 28.4 (26-34) PG MCHC 32.7 (30-36) % RDW 14.6 (11.6-14.8) % Plt Count 180 (150-400) X10^3/uL Neut % (Auto) 61.2 (50-75) % Lymph % (Auto) 21.9 L (25-40) % [place] % (Auto) 15.8 H (3-14) % Eos % (Auto) 0.3 L (2-4) % Baso % (Auto) 0.8 (0-2) % Neut # (Auto) 5900 (3335-2827) /uL Lymph # (Auto) 2100 (7477-7355) /uL [place] # (Auto) 1500 H (0-900) /uL Eos # (Auto) 0 (0-450) /uL Baso # (Auto) 100 (0-100) /uL PT (10.1-12.7) SECONDS INR (0.9-1.3) Sodium 133 L (137-145) mmol/L Potassium 4.5 (3.4-5.1) mmol/L Chloride 100 (98-107) mmol/L Carbon Dioxide 25 (22-32) mmol/L BUN 25 H (9-20) mg/dL Creatinine 1.23 (0.66-1.25) mg/dL Estimated GFR 56.5 L (>60) mL/min BUN/Creatinine Ratio 20.3 (6-22) Glucose 112 H (80-110) mg/dL Lactate (0.7-2.1) mmol/L Calcium 8.9 (8.4-10.2) mg/dL Magnesium 2.1 (1.6-2.3) mg/dL Total Bilirubin 3.0 H (0.2-1.3) mg/dL AST 30 (17-59) IU/L ALT 22 (<50) IU/L Alkaline Phosphatase 85 (38-126) U/L Troponin I 0.131 H* (0.01-0.034) ng/mL Total Protein 7.2 (6.3-8.2) g/dL Albumin 3.9 (3.5-5.0) g/dL Globulin 3.3 (1.7-4.1) g/dL Albumin/Globulin Ratio 1.2 (1.0-2.8) Lipase 71 (23-300) U/L Urine Color Yellow Urine Appearance Clear Urine pH 5.5 (4.5-8.0) Ur Specific [place] 1.010 (1.000-1.035) Urine Protein 1+ H (Negative) Urine Glucose (UA) Negative (Negative) g/dL Urine Ketones Negative (NEGATIVE) Urine Occult Blood 2+ H (Negative) Urine Nitrate Negative (Negative) Urine Bilirubin Negative (NEGATIVE) Urine Urobilinogen 0.2 (0.2) E.U./dL Ur Leukocyte Esterase Negative (NEGATIVE) Urine RBC 1-5/hpf (0-5/HPF) Urine WBC 0-1/hpf (0-5/HPF) Urine Bacteria None seen (None) Ur Culture Indicated? Cult not indicated SARS-CoV-2 (PCR) (Negative) 12/22/20 12/22/20 12/22/20 Range/Units 18:22 18:35 19:05 WBC (4.5-11.0) X10^3/uL RBC (4.5-5.9) X10^6/uL Hgb (13.5-17.5) g/dL Hct (41-53) % MCV (80-100) fL MCH (26-34) PG MCHC (30-36) % RDW (11.6-14.8) % Plt Count (150-400) X10^3/uL Neut % (Auto) (50-75) % Lymph % (Auto) (25-40) % [place] % (Auto) (3-14) % Eos % (Auto) (2-4) % Baso % (Auto) (0-2) % Neut # (Auto) (5264-6529) /uL Lymph # (Auto) (3640-2945) /uL [place] # (Auto) (0-900) /uL Eos # (Auto) (0-450) /uL Baso # (Auto) (0-100) /uL PT 31.8 H (10.1-12.7) SECONDS INR 2.8 H (0.9-1.3) Sodium (137-145) mmol/L Potassium (3.4-5.1) mmol/L Chloride (98-107) mmol/L Carbon Dioxide (22-32) mmol/L BUN (9-20) mg/dL Creatinine (0.66-1.25) mg/dL Estimated GFR (>60) mL/min BUN/Creatinine Ratio (6-22) Glucose (80-110) mg/dL Lactate 1.4 (0.7-2.1) mmol/L Calcium (8.4-10.2) mg/dL Magnesium (1.6-2.3) mg/dL Total Bilirubin (0.2-1.3) mg/dL AST (17-59) IU/L ALT (<50) IU/L Alkaline Phosphatase (38-126) U/L Troponin I (0.01-0.034) ng/mL Total Protein (6.3-8.2) g/dL Albumin (3.5-5.0) g/dL Globulin (1.7-4.1) g/dL Albumin/Globulin Ratio (1.0-2.8) Lipase (23-300) U/L Urine Color Urine Appearance Urine pH (4.5-8.0) Ur Specific [place] (1.000-1.035) Urine Protein (Negative) Urine Glucose (UA) (Negative) g/dL Urine Ketones (NEGATIVE) Urine Occult Blood (Negative) Urine Nitrate (Negative) Urine Bilirubin (NEGATIVE) Urine Urobilinogen (0.2) E.U./dL Ur Leukocyte Esterase (NEGATIVE) Urine RBC (0-5/HPF) Urine WBC (0-5/HPF) Urine Bacteria (None) Ur Culture Indicated? SARS-CoV-2 (PCR) Negative (Negative) 12/22/20 Range/Units 21:35 WBC (4.5-11.0) X10^3/uL RBC (4.5-5.9) X10^6/uL Hgb (13.5-17.5) g/dL Hct (41-53) % MCV (80-100) fL MCH (26-34) PG MCHC (30-36) % RDW (11.6-14.8) % Plt Count (150-400) X10^3/uL Neut % (Auto) (50-75) % Lymph % (Auto) (25-40) % [place] % (Auto) (3-14) % Eos % (Auto) (2-4) % Baso % (Auto) (0-2) % Neut # (Auto) (3614-4174) /uL Lymph # (Auto) (3693-0405) /uL [place] # (Auto) (0-900) /uL Eos # (Auto) (0-450) /uL Baso # (Auto) (0-100) /uL PT (10.1-12.7) SECONDS INR (0.9-1.3) Sodium (137-145) mmol/L Potassium (3.4-5.1) mmol/L Chloride (98-107) mmol/L Carbon Dioxide (22-32) mmol/L BUN (9-20) mg/dL Creatinine (0.66-1.25) mg/dL Estimated GFR (>60) mL/min BUN/Creatinine Ratio (6-22) Glucose (80-110) mg/dL Lactate (0.7-2.1) mmol/L Calcium (8.4-10.2) mg/dL Magnesium (1.6-2.3) mg/dL Total Bilirubin (0.2-1.3) mg/dL AST (17-59) IU/L ALT (<50) IU/L Alkaline Phosphatase (38-126) U/L Troponin I 0.159 H* (0.01-0.034) ng/mL Total Protein (6.3-8.2) g/dL Albumin (3.5-5.0) g/dL Globulin (1.7-4.1) g/dL Albumin/Globulin Ratio (1.0-2.8) Lipase (23-300) U/L Urine Color Urine Appearance Urine pH (4.5-8.0) Ur Specific [place] (1.000-1.035) Urine Protein (Negative) Urine Glucose (UA) (Negative) g/dL Urine Ketones (NEGATIVE) Urine Occult Blood (Negative) Urine Nitrate (Negative) Urine Bilirubin (NEGATIVE) Urine Urobilinogen (0.2) E.U./dL Ur Leukocyte Esterase (NEGATIVE) Urine RBC (0-5/HPF) Urine WBC (0-5/HPF) Urine Bacteria (None) Ur Culture Indicated? SARS-CoV-2 (PCR) (Negative) ECG Data Interpretation: Atrial fib flutter at a rate of [address] T wave abnormalities PVCs MDM Narrative Medical decision making narrative: 80-year-old gentleman who presents with multiple nonspecific symptoms who appears ill. No obvious etiology on initial presentation. Will continue workup with concern for sepsis with heart rate increasing, respiratory rate increasing, temperature going up an oxygen saturations decreasing all in the initial to our stay prior to being evaluated completely. All workup has been initiated and will begin fluid resuscitation and ceftriaxone until source is better identified. Initial urinalysis does not suggest UTI. <Dustin Becker DO - Last Filed: 12/23/20 03:19> Lab Data Labs: Lab Results 12/22/20 12/22/20 12/22/20 Range/Units 16:42 18:22 18:22 WBC 9.6 (4.5-11.0) X10^3/uL RBC 5.70 (4.5-5.9) X10^6/uL Hgb 16.2 (13.5-17.5) g/dL Hct 49.5 (41-53) % MCV 86.8 (80-100) fL MCH 28.4 (26-34) PG MCHC 32.7 (30-36) % RDW 14.6 (11.6-14.8) % Plt Count 180 (150-400) X10^3/uL Neut % (Auto) 61.2 (50-75) % Lymph % (Auto) 21.9 L (25-40) % [place] % (Auto) 15.8 H (3-14) % Eos % (Auto) 0.3 L (2-4) % Baso % (Auto) 0.8 (0-2) % Neut # (Auto) 5900 (1479-2481) /uL Lymph # (Auto) 2100 (9358-4274) /uL [place] # (Auto) 1500 H (0-900) /uL Eos # (Auto) 0 (0-450) /uL Baso # (Auto) 100 (0-100) /uL PT (10.1-12.7) SECONDS INR (0.9-1.3) Sodium 133 L (137-145) mmol/L Potassium 4.5 (3.4-5.1) mmol/L Chloride 100 (98-107) mmol/L Carbon Dioxide 25 (22-32) mmol/L BUN 25 H (9-20) mg/dL Creatinine 1.23 (0.66-1.25) mg/dL Estimated GFR 56.5 L (>60) mL/min BUN/Creatinine Ratio 20.3 (6-22) Glucose 112 H (80-110) mg/dL Lactate (0.7-2.1) mmol/L Calcium 8.9 (8.4-10.2) mg/dL Magnesium 2.1 (1.6-2.3) mg/dL Total Bilirubin 3.0 H (0.2-1.3) mg/dL AST 30 (17-59) IU/L ALT 22 (<50) IU/L Alkaline Phosphatase 85 (38-126) U/L Troponin I 0.131 H* (0.01-0.034) ng/mL Total Protein 7.2 (6.3-8.2) g/dL Albumin 3.9 (3.5-5.0) g/dL Globulin 3.3 (1.7-4.1) g/dL Albumin/Globulin Ratio 1.2 (1.0-2.8) Lipase 71 (23-300) U/L Urine Color Yellow Urine Appearance Clear Urine pH 5.5 (4.5-8.0) Ur Specific [place] 1.010 (1.000-1.035) Urine Protein 1+ H (Negative) Urine Glucose (UA) Negative (Negative) g/dL Urine Ketones Negative (NEGATIVE) Urine Occult Blood 2+ H (Negative) Urine Nitrate Negative (Negative) Urine Bilirubin Negative (NEGATIVE) Urine Urobilinogen 0.2 (0.2) E.U./dL Ur Leukocyte Esterase Negative (NEGATIVE) Urine RBC 1-5/hpf (0-5/HPF) Urine WBC 0-1/hpf (0-5/HPF) Urine Bacteria None seen (None) Ur Culture Indicated? Cult not indicated SARS-CoV-2 (PCR) (Negative) 12/22/20 12/22/20 12/22/20 Range/Units 18:22 18:35 19:05 WBC (4.5-11.0) X10^3/uL RBC (4.5-5.9) X10^6/uL Hgb (13.5-17.5) g/dL Hct (41-53) % MCV (80-100) fL MCH (26-34) PG MCHC (30-36) % RDW (11.6-14.8) % Plt Count (150-400) X10^3/uL Neut % (Auto) (50-75) % Lymph % (Auto) (25-40) % [place] % (Auto) (3-14) % Eos % (Auto) (2-4) % Baso % (Auto) (0-2) % Neut # (Auto) (5333-9404) /uL Lymph # (Auto) (7455-4497) /uL [place] # (Auto) (0-900) /uL Eos # (Auto) (0-450) /uL Baso # (Auto) (0-100) /uL PT 31.8 H (10.1-12.7) SECONDS INR 2.8 H (0.9-1.3) Sodium (137-145) mmol/L Potassium (3.4-5.1) mmol/L Chloride (98-107) mmol/L Carbon Dioxide (22-32) mmol/L BUN (9-20) mg/dL Creatinine (0.66-1.25) mg/dL Estimated GFR (>60) mL/min BUN/Creatinine Ratio (6-22) Glucose (80-110) mg/dL Lactate 1.4 (0.7-2.1) mmol/L Calcium (8.4-10.2) mg/dL Magnesium (1.6-2.3) mg/dL Total Bilirubin (0.2-1.3) mg/dL AST (17-59) IU/L ALT (<50) IU/L Alkaline Phosphatase (38-126) U/L Troponin I (0.01-0.034) ng/mL Total Protein (6.3-8.2) g/dL Albumin (3.5-5.0) g/dL Globulin (1.7-4.1) g/dL Albumin/Globulin Ratio (1.0-2.8) Lipase (23-300) U/L Urine Color Urine Appearance Urine pH (4.5-8.0) Ur Specific [place] (1.000-1.035) Urine Protein (Negative) Urine Glucose (UA) (Negative) g/dL Urine Ketones (NEGATIVE) Urine Occult Blood (Negative) Urine Nitrate (Negative) Urine Bilirubin (NEGATIVE) Urine Urobilinogen (0.2) E.U./dL Ur Leukocyte Esterase (NEGATIVE) Urine RBC (0-5/HPF) Urine WBC (0-5/HPF) Urine Bacteria (None) Ur Culture Indicated? SARS-CoV-2 (PCR) Negative (Negative) 12/22/20 Range/Units 21:35 WBC (4.5-11.0) X10^3/uL RBC (4.5-5.9) X10^6/uL Hgb (13.5-17.5) g/dL Hct (41-53) % MCV (80-100) fL MCH (26-34) PG MCHC (30-36) % RDW (11.6-14.8) % Plt Count (150-400) X10^3/uL Neut % (Auto) (50-75) % Lymph % (Auto) (25-40) % [place] % (Auto) (3-14) % Eos % (Auto) (2-4) % Baso % (Auto) (0-2) % Neut # (Auto) (0166-0492) /uL Lymph # (Auto) (6868-8274) /uL [place] # (Auto) (0-900) /uL Eos # (Auto) (0-450) /uL Baso # (Auto) (0-100) /uL PT (10.1-12.7) SECONDS INR (0.9-1.3) Sodium (137-145) mmol/L Potassium (3.4-5.1) mmol/L Chloride (98-107) mmol/L Carbon Dioxide (22-32) mmol/L BUN (9-20) mg/dL Creatinine (0.66-1.25) mg/dL Estimated GFR (>60) mL/min BUN/Creatinine Ratio (6-22) Glucose (80-110) mg/dL Lactate (0.7-2.1) mmol/L Calcium (8.4-10.2) mg/dL Magnesium (1.6-2.3) mg/dL Total Bilirubin (0.2-1.3) mg/dL AST (17-59) IU/L ALT (<50) IU/L Alkaline Phosphatase (38-126) U/L Troponin I 0.159 H* (0.01-0.034) ng/mL Total Protein (6.3-8.2) g/dL Albumin (3.5-5.0) g/dL Globulin (1.7-4.1) g/dL Albumin/Globulin Ratio (1.0-2.8) Lipase (23-300) U/L Urine Color Urine Appearance Urine pH (4.5-8.0) Ur Specific [place] (1.000-1.035) Urine Protein (Negative) Urine Glucose (UA) (Negative) g/dL Urine Ketones (NEGATIVE) Urine Occult Blood (Negative) Urine Nitrate (Negative) Urine Bilirubin (NEGATIVE) Urine Urobilinogen (0.2) E.U./dL Ur Leukocyte Esterase (NEGATIVE) Urine RBC (0-5/HPF) Urine WBC (0-5/HPF) Urine Bacteria (None) Ur Culture Indicated? SARS-CoV-2 (PCR) (Negative) Imaging Data CT scan - chest: Radiologist's Impression: Chart Viewer Diagnostics DATE TYPE STATUS REF RANGE/AUTHOR Hx Today 02:08 12/22/20 19:42 Norberto Galeano 12/22/20 19:41 Norberto Galeano 12/22/20 18:06 Norberto Galeano 10/18/20 10:41 Mike Szymanski 07/17/20 13:33 Brenda Curiel 05/14/20 11:03 05/14/20 09:31 Brenda Curiel 07/25/19 10:48 Ed Ortiz 10/16/16 13:33 10/16/16 13:33 10/16/16 11:35 10/16/16 10:03 10/16/16 10:03 80, M010 REG ER, Main ED R08 297.18cm 83.915kg BMI: 9.5kg/m? Urogenital-Male Search Chart No Data to Display ONSET Today 03:00 Anamaria Saleh 80 M [address] [id number] Scan ReportSigned Patient: Anamaria Saleh WMR#: [id number]: 1940Acct:[id number]/Sex: 80 / MDate of Service: 12/22/20Loc: EDAccession Number: [id number] Procedure: CT angio chest PE protocol Ordering Provider: Dustni Becker D.O. PROCEDURE: CT ANGIO CHEST PE PROTOCOL INDICATIONS: chest pain, shortness of breath, cough, fatigue, history PE TECHNIQUE: After the administration of intravenous contrast, 2 mm thick sections acquired from the pulmonary apices to the posterior costophrenic angles. 3-dimensional maximum intensity projection (MIP) coronal and sagittal reformats were then acquired through the thorax. For radiation dose reduction, the following was used: automated exposure control, adjustment of mA and/or kV according to patient size. COMPARISON: [facility], CT, PE STUDY (CTA CHEST), 11/11/2013, 5:07. [facility], CT, CT ABDOMEN PELVIS W CON, 07/17/2020, 13:34. FINDINGS: Image quality: Excellent. Pulmonary arteries: Pulmonary arteries are normal in size, and demonstrate no intraluminal filling defects to suggest central pulmonary embolism. Lungs and pleura: Lungs are slightly edematous best seen at the lung bases. No pleural effusions or pneumothorax. Central and peripheral airways are patent. Mediastinum: Heart size is globally enlarged, mildly, without pericardial effusion. Mild prominence of the right mediastinal and hilar lymph nodes. Thoracic aorta is normal in caliber and enhancement. Esophagus is normal in caliber, without hiatal hernia. Bones and chest wall: No suspicious bony lesions. Ribs and thoracic spine appear intact throughout. Thyroid gland appears normal where well seen. No axillary or supraclavicular adenopathy. Abdomen: Visualized upper abdominal solid organs appear normal in the early arterial phase of enhancement. IMPRESSION: Cardiomegaly, with right-sided cardiac reflux of contrast enhanced blood into the upper intrahepatic inferior vena cava. A pulmonary mass lesion is not seen. Mild adenopathy is present at the right mediastinum and madelyn comprised of an increased number of small nodes confluent in these 2 areas. These may simply be reactive lymph nodes, but they were not previously present in October of 2013 on the most recent comparison chest CT scanning available. Follow-up contrast-enhanced CT scanning of the chest is recommended in 3-6 months to establish chronicity and potential for exchange teller time of these lymph nodes. Dictated by: Norberto Galeano M.D. on 12/22/2020 at 20:51 Approved by: Norberto Galeano M.D. on 12/22/2020 at 20:56 Anamaria Saleh 80 M [address] [id number] Scan ReportSigned Patient: Anamaria Saleh WMR#: [id number]: 1940Acct:[id number]/Sex: 80 / MDate of Service: 12/22/20Loc: EDAccession Number: [id number] Procedure: CT abdomen pelvis w con Ordering Provider: Dustin Becker D.O. PROCEDURE: CT ABDOMEN PELVIS W CON INDICATIONS: abdominal pain, short of breath, sepsis TECHNIQUE: After the administration of intravenous contrast, axial sections acquired from the lung bases to the pubic symphysis. Coronal and sagittal reformats were performed. For radiation dose reduction, the following was used: automated exposure control, adjustment of mA and/or kV according to patient size. COMPARISON: [facility], CT, CT ABDOMEN PELVIS W CON, 07/17/2020, 13:34. [facility], CT, ABDOMEN/PELVIS WITH CONTRAST, 01/18/2014, 15:05. FINDINGS: Image quality: Excellent. Lung bases: Unremarkable. Heart: Global mild cardiomegaly. ABDOMEN: Liver: Unremarkable. Gallbladder: The gallbladder contain several small faintly visualized stones layering dependently. Biliary ducts: Unremarkable. Pancreas: Unremarkable. Spleen: Unremarkable. Adrenal Glands: Unremarkable. Kidneys and Ureters: Unremarkable. Stomach and Bowel: Stomach, small bowel loops, and colon are unremarkable. Peritoneum: No abnormal intraperitoneal fluid. No free air. Ventral Wall: No hernias. Abdominal Nodes: No retroperitoneal or mesenteric adenopathy by size criteria. Vessels: Aorta and inferior vena cava are normal in size. An IVC filter is noted in normal position. PELVIS: Pelvic Organs: Unremarkable. Bladder: Unremarkable. Pelvic Nodes: No enlarged lymph nodes. Miscellaneous: No hernias are seen. Bones: Unremarkable. IMPRESSION: Global cardiomegaly, no definite acute CHF. No pleural effusion at the lung bases. Note is made of an IVC filter in normal position. No acute disease within the abdomen or pelvis. Postsurgical clips suggest prior appendectomy and pelvic lymph node excision. Overall no evidence of acute disease. Dictated by: Norberto Galeano M.D. on 12/22/2020 at 21:16 Approved by: Norberto Galeano M.D. on 12/22/2020 at 21:19 [facility] Narrative Additional Information: patient presents with rather nonspecific complaints but likely underlying infectious etiology which over the course of the visit becomes more clear with development of fever, tachycardia, tachypnea. Patient is treated with septic protocol including fluid resuscitation, antibiotics as well as blood cultures and lactate ordered. He did develop an elevation in troponin and had a few runs of V-tach as noted, which seemed to be abated by amiodarone. Patient requires transfer due to the complexity of his history. His cardiology group is in [place]. We thank the team at [facility] for their assistance in caring for this individual <Dustin Becker DO - Last Filed: 12/23/20 03:19> Critical Care Time Attestation: The high probability of a clinically significant, sudden or life threatening deterioration of the [CV] system(s) required my full and direct attention, intervention and personal management. The aggregate critical care time was [45] minutes. This time is in addition to time spent performing reported procedures but includes the following: [x] Data Review and interpretation [x] Patient assessment and monitoring of vital signs [x] Documentation [x] Medication orders and management Discharge Plan Departure Patient Disposition: [facility] Clinical Impression: Elevated troponin I level, V tach Sepsis Qualifiers: Sepsis type: sepsis due to unspecified organism Sepsis acute organ dysfunction status: unspecified Qualified Code(s): A41.9 - Sepsis, unspecified organism Abdominal pain Qualifiers: Abdominal location: generalized Qualified Code(s): R10.84 - Generalized abdominal pain Prescriptions: No Action furosemide [Lasix] 20 mg tablet 20 mg PO .COMPLEX Qty: 30 RF: 0 warfarin 5 mg tablet 5 mg PO DAILY Qty: 90 RF: 1 tafamidis 61 mg capsule 61 mg PO DAILY RF: 0 lisinopril 5 mg Tablet 2.5 mg PO DAILY Qty: 30 RF: 0 atorvastatin 10 mg tablet 5 mg PO DAILY RF: 0 sotalol 80 mg tablet 120 mg PO DAILY RF: 0 Referrals: Pedro Verma MD [Primary Care Provider] -
--- NOTE | 2020-12-22 18:06 | DI.RAD.S_ITS ---
PROCEDURE: XR CHEST 1V INDICATIONS: tachycardic TECHNIQUE: One view of the chest was acquired. COMPARISON: [facility], , XR CHEST 1V, 05/14/2020, 9:34. [facility], , CHEST 2 VIEW, 01/11/2014, 9:01. FINDINGS: Surgical changes and devices: Dual chamber cardiac pacemaking device and leads remain in normal position Lungs and pleura: Lungs are slightly edematous. No pleural effusions or pneumothorax. Mediastinum: Mediastinal contours appear normal. Heart size is globally enlarged to mild degree. Bones and chest wall: No suspicious bony lesions. Overlying soft tissues appear unremarkable. IMPRESSION: Mild global cardiomegaly, mild acute CHF suspected. Pacemaking device and dual chamber leads normal. Dictated by: Norberto Galeano M.D. on 12/22/2020 at 18:17 Approved by: Norberto Galeano M.D. on 12/22/2020 at 18:18
[2020-12-22] MEDS: SODIUM CHLORIDE 0.9% 1,000 ML 1000 ML IV (18:35)
[2020-12-22 18:48] LABS: Add Manual Diff / Slide Review NO; Basophils Absolute Auto 100 /uL (0-100); Basophils Percent Auto 0.8 % (0-2); Eosinophils Absolute Auto 0 /uL (0-450); Eosinophils Percent Auto 0.3 % (2-4); Hematocrit 49.5 % (41-53); Hemoglobin 16.2 g/dL (13.5-17.5); Lymphocytes Absolute Auto 2100 /uL (1100-4500); Lymphocytes Percent Auto 21.9 % (25-40); Mean Corpuscular HGB Conc 32.7 % (30-36); Mean Corpuscular Hemoglobin 28.4 PG (26-34); Mean Corpuscular Volume 86.8 fL (80-100); Monocytes Absolute Auto 1500 /uL (0-900); Monocytes Percent Auto 15.8 % (3-14); Neutrophils Absolute Auto 5900 /uL (1500-7000); Neutrophils Percent Auto 61.2 % (50-75); Platelet Count 180 X10^3/uL (150-400); Red Cell Distribution Width 14.6 % (11.6-14.8); White Blood Cell Count 9.6 X10^3/uL (4.5-11.0)
[2020-12-22 19:03] LABS: Lactate (Lactic Acid) 1.4 mmol/L (0.7-2.1)
[2020-12-22 19:04] LABS: Alanine Aminotransferase 22 IU/L (<50); Albumin 3.9 g/dL (3.5-5.0); Albumin Globulin Ratio 1.2 (1.0-2.8); Alkaline Phosphatase 85 U/L (38-126); Aspartate Aminotransferase 30 IU/L (17-59); BUN Creatinine Ratio 20.3 (6-22); Blood Urea Nitrogen 25 mg/dL (9-20); Calcium 8.9 mg/dL (8.4-10.2); Carbon Dioxide 25 mmol/L (22-32); Chloride 100 mmol/L (98-107); Estimated Glomerular Filt Rate 56.5 mL/min (>60); Globulin 3.3 g/dL (1.7-4.1); Glucose 112 mg/dL (80-110); HEMOLYSIS < 15 (0-50); Lipase 71 U/L (23-300); Magnesium 2.1 mg/dL (1.6-2.3); Potassium 4.5 mmol/L (3.4-5.1); Sodium 133 mmol/L (137-145); Total Protein 7.2 g/dL (6.3-8.2)
[2020-12-22] MEDS: PIPERACILLIN/TAZO 4.5 GM in SODIUM CHLORIDE 0.9% 100 ML 200 ML IV (19:08)
[2020-12-22 19:16] LABS: Troponin I 0.131 ng/mL (0.01-0.034)
[2020-12-22] MEDS: LACTATED RINGERS 1811 ML IV (19:22)
[2020-12-22 19:26] LABS: INR 2.8 (0.9-1.3); Prothrombin Time 31.8 SECONDS (10.1-12.7)
[2020-12-22 19:39] LABS: COVID19 - ADMIT (NP swab/PCR) Negative (Negative)
--- NOTE | 2020-12-22 19:41 | DI.CT.S_ITS ---
PROCEDURE: CT ANGIO CHEST PE PROTOCOL INDICATIONS: chest pain, shortness of breath, cough, fatigue, history PE TECHNIQUE: After the administration of intravenous contrast, 2 mm thick sections acquired from the pulmonary apices to the posterior costophrenic angles. 3-dimensional maximum intensity projection (MIP) coronal and sagittal reformats were then acquired through the thorax. For radiation dose reduction, the following was used: automated exposure control, adjustment of mA and/or kV according to patient size. COMPARISON: [facility], CT, PE STUDY (CTA CHEST), 11/11/2013, 5:07. [facility], CT, CT ABDOMEN PELVIS W CON, 07/17/2020, 13:34. FINDINGS: Image quality: Excellent. Pulmonary arteries: Pulmonary arteries are normal in size, and demonstrate no intraluminal filling defects to suggest central pulmonary embolism. Lungs and pleura: Lungs are slightly edematous best seen at the lung bases. No pleural effusions or pneumothorax. Central and peripheral airways are patent. Mediastinum: Heart size is globally enlarged, mildly, without pericardial effusion. Mild prominence of the right mediastinal and hilar lymph nodes. Thoracic aorta is normal in caliber and enhancement. Esophagus is normal in caliber, without hiatal hernia. Bones and chest wall: No suspicious bony lesions. Ribs and thoracic spine appear intact throughout. Thyroid gland appears normal where well seen. No axillary or supraclavicular adenopathy. Abdomen: Visualized upper abdominal solid organs appear normal in the early arterial phase of enhancement. IMPRESSION: Cardiomegaly, with right-sided cardiac reflux of contrast enhanced blood into the upper intrahepatic inferior vena cava. A pulmonary mass lesion is not seen. Mild adenopathy is present at the right mediastinum and madelyn comprised of an increased number of small nodes confluent in these 2 areas. These may simply be reactive lymph nodes, but they were not previously present in October of 2013 on the most recent comparison chest CT scanning available. Follow-up contrast-enhanced CT scanning of the chest is recommended in 3-6 months to establish chronicity and potential for exchange trouble shooter time of these lymph nodes. Dictated by: Norberto Galeano M.D. on 12/22/2020 at 20:51 Approved by: Norberto Galeano M.D. on 12/22/2020 at 20:56
--- NOTE | 2020-12-22 19:42 | DI.CT.S_ITS ---
PROCEDURE: CT ABDOMEN PELVIS W CON INDICATIONS: abdominal pain, short of breath, sepsis TECHNIQUE: After the administration of intravenous contrast, axial sections acquired from the lung bases to the pubic symphysis. Coronal and sagittal reformats were performed. For radiation dose reduction, the following was used: automated exposure control, adjustment of mA and/or kV according to patient size. COMPARISON: [facility], CT, CT ABDOMEN PELVIS W CON, 07/17/2020, 13:34. [facility], CT, ABDOMEN/PELVIS WITH CONTRAST, 01/18/2014, 15:05. FINDINGS: Image quality: Excellent. Lung bases: Unremarkable. Heart: Global mild cardiomegaly. ABDOMEN: Liver: Unremarkable. Gallbladder: The gallbladder contain several small faintly visualized stones layering dependently. Biliary ducts: Unremarkable. Pancreas: Unremarkable. Spleen: Unremarkable. Adrenal Glands: Unremarkable. Kidneys and Ureters: Unremarkable. Stomach and Bowel: Stomach, small bowel loops, and colon are unremarkable. Peritoneum: No abnormal intraperitoneal fluid. No free air. Ventral Wall: No hernias. Abdominal Nodes: No retroperitoneal or mesenteric adenopathy by size criteria. Vessels: Aorta and inferior vena cava are normal in size. An IVC filter is noted in normal position. PELVIS: Pelvic Organs: Unremarkable. Bladder: Unremarkable. Pelvic Nodes: No enlarged lymph nodes. Miscellaneous: No hernias are seen. Bones: Unremarkable. IMPRESSION: Global cardiomegaly, no definite acute CHF. No pleural effusion at the lung bases. Note is made of an IVC filter in normal position. No acute disease within the abdomen or pelvis. Postsurgical clips suggest prior appendectomy and pelvic lymph node excision. Overall no evidence of acute disease. Dictated by: Norberto Galeano M.D. on 12/22/2020 at 21:16 Approved by: Norberto Galeano M.D. on 12/22/2020 at 21:19
[2020-12-22] MEDS: KETOROLAC 30 MG/ML VIAL 10 MG IV (21:30)
[2020-12-22] MEDS: AMIODARONE 150 MG/100 ML PIGGYBACK 600 MG IV (21:31)
[2020-12-22 22:11] LABS: Troponin I 0.159 ng/mL (0.01-0.034)
[2020-12-23] VITALS (12 sets, daily range): BP systolic 118–140; BP diastolic 72–87; PULSE 102–148; RESP 26; O2SAT 87–97
[2020-12-23] MEDS: fentaNYL 100 MCG/2 ML INJ 50 MCG IV (01:27)
--- NOTE | 2020-12-23 02:08 | DI.RAD.S_ITS ---
PROCEDURE: XR CHEST 1V INDICATIONS: wet sounding lungs, hypoxia TECHNIQUE: One view of the chest was acquired. COMPARISON: [facility], CR, XR CHEST 1V, 12/22/2020, 18:09. FINDINGS: Surgical changes and devices: Pacemaker Lungs and pleura: Somewhat patchy bilateral infiltrates, generalized vascular congestion. Mediastinum: Mediastinal contours appear normal. Cardiomegaly. Bones and chest wall: No suspicious bony lesions. Overlying soft tissues appear unremarkable. IMPRESSION: Congestive heart failure exacerbation. Comment: Final report is concordant with preliminary interpretation provided by [facility]. Dictated by: Demond Ardon M.D. on 12/23/2020 at 6:29 Approved by: Demond Ardon M.D. on 12/23/2020 at 6:31
--- NOTE | 2020-12-23 02:17 | PC.NURSE ---
Pt noted with respirations 26-30 BPM and SpO2 at 90%. Pt sleeping, denies SOB. Lungs with crackles and wheezes to L lung posteriorly. Dr Becker made aware. RT now at bedside for eval/treat.
[2020-12-23] MEDS: FUROSEMIDE 40 MG/4 ML VIAL IV (02:37)
== END 2020-12-23 03:30 | disposition short-term general hospital (02) ==
PROVIDERS: Emergency Medicine; Emergency Provider Emergency Medicine; Family Provider Internal Medicine; PCP Family Medicine
DX: I47.2 Ventricular tachycardia (principal); R77.8 Other specified abnormalities of plasma proteins; A41.9 Sepsis, unspecified organism; R10.84 Generalized abdominal pain; Z20.822 Contact with and (suspected) exposure to COVID-19
CPT/HCPCS: 36415; 51798; 71045; 71275; 74177; 80053; 81001; 83605; 83690; 83735; 84484; 85025; 85610; 87040; 87635; 93005; 96361; 96365; 96367; 96375; 99284; 99291; C9803; J0282; J1885; J1940; J2543; J3010; Q9967

== ENCOUNTER → 2021-02-19 13:27 | Outpatient (CLI) | payer MEDICARE, SELFPAY ==
[2020-05-14 12:41] VITALS: BMI 27.0
[2021-02-19 15:51] LABS: BUN Creatinine Ratio 29.1 (6-22); Blood Urea Nitrogen 46 mg/dL (9-20); Calcium 9.5 mg/dL (8.4-10.2); Carbon Dioxide 31 mmol/L (22-32); Chloride 96 mmol/L (98-107); Estimated Glomerular Filt Rate 42.3 mL/min (>60); Glucose 134 mg/dL (80-110); HEMOLYSIS < 15 (0-50); Potassium 4.5 mmol/L (3.4-5.1); Sodium 136 mmol/L (137-145)
[2021-02-19 16:00] LABS: NT-proBNP (BNP-Adult 18+) 8380 pg/mL (<450)
== END ==
PROVIDERS: Family Provider Family Medicine; PCP Family Medicine; Referring Provider Nurse Practitioner Family; Visit Provider Nurse Practitioner Family
DX: I42.5 Other restrictive cardiomyopathy (principal); R06.00 Dyspnea, unspecified
CPT/HCPCS: 36415; 80048; 83880

== ENCOUNTER 2021-02-22 11:27 | Outpatient (RCR) | payer MEDICARE, SELFPAY ==
[2020-05-14 12:41] VITALS: BMI 27.0
--- NOTE | 2021-02-22 14:08 | PT.OIE ---
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 Atrial fibrillation Bradycardia Chicken pox Diverticular disease DVT (deep venous thrombosis) Fractures History of appendectomy History of carpal tunnel surgery (~2014) History of cataract surgery (~2009) History of knee replacement History of prostate surgery (~1999) History of surgery (~2015) Hypertension Measles Plantar warts Pulmonary embolism Past Surgical History (Last Reviewed 12/22/20 @ 18:08 by Taty Quijano MD) Anesthesia History of appendectomy History of broken leg (~2013) History of carpal tunnel surgery (~2014) History of cataract surgery (~2009) History of knee replacement History of prostate surgery (~1999) History of surgery (~2015) Pacemaker (~2003) Visit Care Team Role Provider Type Pedro Verma MD Attending Provider Physician Family Provider Primary Care Provider Referring Provider Specialty: [facility] Address: [address] [place] [address] Email: [email or web address] Physical Therapy Initial Evaluation PT-OP-A Visit Information Start: 02/22/21 13:48 Freq: Status: Active Protocol: Document 02/22/21 12:00 DCW (Rec: 02/22/21 14:01 [facility] [id number]) Out-Patient Physical Therapy Visit Information Visit Information Visit Type Initial Evaluation Visit Start Time 12:00 Visit Stop Time 12:45 Total Visit Minutes 45 Visit Number 1 Number of INSTRUCTOR ROBOTICS Visits 0 Evaluation Information Evaluation Date 02/22/21 PT-OP-B Current Condition Start: 02/22/21 13:48 Freq: Status: Active Protocol: Document 02/22/21 12:00 DCW (Rec: 02/22/21 14:01 [facility] [id number]) Current Condition History of Current Condition Onset Date 12/22/20 Current Complaints Shortness of breath, lack of power History of Current Condition Pt is an 80 year old male presenting with skilled therapy one month s/p hospitalization secondary to vague not feeling well. Was transferred to [facility], was experiencing cardiac issues with A-fib, Amyloidosis, and CHF. Notes that since that time, he has had a lack of power and easily becomes short of breath . Has difficulty completing job-related activities, such as feeding cattle. Feels his heart is the main problem, does not believe that he has any general weakness. Prior Treatments and Tests Pt has pacemaker PT-OP-C Subjective Start: 02/22/21 13:48 Freq: Status: Active Protocol: Document 02/22/21 12:00 DCW (Rec: 02/22/21 14:01 DCW [id number]) OP-PT Subjective Patient Comments Patient Comments I don't think I get enough blood pumping, I just don't have any power, and I lose my breath quickly. PT-OP-D Balance Start: 02/22/21 13:48 Freq: Status: Active Protocol: Document 02/22/21 12:00 DCW (Rec: 02/22/21 14:01 DCW [id number]) Balance Tests Romberg Romberg Eyes closed - 15 seconds Single Limb Standing Single Limb- Right 8 Single Limb- Left 10 Tandem Tandem Standing 45+ bilaterally PT-OP-E Functional Tests Start: 02/22/21 13:48 Freq: Status: Active Protocol: Document 02/22/21 12:00 DCW (Rec: 02/22/21 14:01 DCW [id number]) Functional Tests 6 Minute Walk Test Distance 924' Device Used none Comments O2 at 98% after 30 Second Sit to Stand Test Score 11 Comments O2 at 97% after Functional Gait Assessment Score 22/30 Functional Gait Assessment Impairment 20 to <40% Impaired (Score 19- Rating 24) PT-OP-M Strength Start: 02/22/21 13:48 Freq: Status: Active Protocol: Document 02/22/21 12:00 DCW (Rec: 02/22/21 14:01 DCW [id number]) Hip Strength Hip Manual Muscle Testing Right Flexion (L2) 5 Normal Extension (S1) 5 Normal Abduction 5 Normal Adduction 5 Normal Left Flexion (L2) 4 Good Extension (S1) 5 Normal Abduction 5 Normal Adduction 5 Normal Knee Strength Knee Manual Muscle Testing Right Flexion (S2) 5 Normal Extension (L3) 5 Normal Left Flexion (S2) 4 Good Extension (L3) 5 Normal Ankle/Foot Strength Ankle and Foot Manual Muscle Testing Right Dorsiflexion (L4) 5 Normal Plantarflexion (S1) 4+ Good+ Left Dorsiflexion (L4) 5 Normal Plantarflexion (S1) 4+ Good+ PT-OP-T Assessment and Plan Start: 02/22/21 13:48 Freq: Status: Active Protocol: Document 02/22/21 12:00 DCW (Rec: 02/22/21 14:08 DCW [id number]) Physical Therapy Assessment Rehab Potential Rehabilitation Potential Good Evaluation Complexity Number of Personal Factors/Comorbidities 3 or More Number of Body Systems Impaired 1-2 Assessment Summary Assessment Pt presents overall with fairly good strength, balance, and mobility. At or above all age-related norms. Score of 22/30 higher than the 20/8 average for his age group, 11 repetitions in 30 second sit to stand greater than the 10 rep average. Good strength in LEs overall. Distance of 924' during 6 minute walk test well above the 709' cutoff which indicates an increased risk of functional decline in older adults. Through all testing, pt's O2 sat remained 97-98%. Pt's subjective complaints and goals for therapy all revolved around his shortness of breath and his heart. As there is no obvious physical deficits for PT to work on at this time, and with pt's cardiac history, pt would likely benefit more from an assessment with cardiopulmonary rehabilitation . Both patient and his were very much in agreement with this plan. Pt will be discharged from skilled therapy at this time. Physical Therapy Plan Frequency and Duration Frequency of Treatment 1x/Week Duration of Treatment One day Plan of Care Start Date 02/22/21 Plan of Care End Date 02/23/21 Other Referrals/Consults Referrals/Consults Recommended Cardiopulmonary will likely be more beneficial to patient at this time Discharge Physical Therapy Discharge Reasons No Longer Attending PT
--- NOTE | 2021-02-22 14:09 | PT.OPPOC ---
Physical, Occupational & Speech Therapy At [facility] Current Diagnoses Other abnormalities of gait and mobility (02/22/21) Weakness (02/22/21) Visit Care Team Role Provider Type Pedro Verma MD Attending Provider Physician Family Provider Primary Care Provider Referring Provider Specialty: Family Practice Address: [address] [place] [address], [facility] Email: [email or web address] Plan Of Care PT-OP-T Assessment and Plan Start: 02/22/21 13:48 Freq: Status: Active Protocol: Document 02/22/21 12:00 DCW (Rec: 02/22/21 14:08 DCW [id number]) Physical Therapy Assessment Rehab Potential Rehabilitation Potential Good Evaluation Complexity Number of Personal Factors/Comorbidities 3 or More Number of Body Systems Impaired 1-2 Assessment Summary Assessment Pt presents overall with fairly good strength, balance, and mobility. At or above all age-related norms. Score of 22/30 higher than the 20/8 average for his age group, 11 repetitions in 30 second sit to stand greater than the 10 rep average. Good strength in LEs overall. Distance of 924' during 6 minute walk test well above the 709' cutoff which indicates an increased risk of functional decline in older adults. Through all testing, pt's O2 sat remained 97-98%. Pt's subjective complaints and goals for therapy all revolved around his shortness of breath and his heart. As there is no obvious physical deficits for PT to work on at this time, and with pt's cardiac history, pt would likely benefit more from an assessment with cardiopulmonary rehabilitation . Both patient and his were very much in agreement with this plan. Pt will be discharged from skilled therapy at this time. Physical Therapy Plan Frequency and Duration Frequency of Treatment 1x/Week Duration of Treatment One day Plan of Care Start Date 02/22/21 Plan of Care End Date 02/23/21 Other Referrals/Consults Referrals/Consults Recommended Cardiopulmonary will likely be more beneficial to patient at this time Discharge Physical Therapy Discharge Reasons No Longer Attending PT Plan of Care Dates Plan of Care Start Date 02/22/21 Plan of Care End Date 02/23/21 Electronically Signed by: Cali Loyola, PT 02/22/21 1409 Please Sign and Return: I have reviewed this Plan of Care and certify that the skilled therapy services above are required to meet the patient?s needs. Physician Signature Date Printed Name and Credentials Clinical Instructor Signature Printed Name and Credentials
== END 2021-02-26 11:33 | disposition home or self-care (01) ==
LOC: PHYS 11:27
PROVIDERS: Family Provider Family Medicine; PCP Family Medicine; Referring Provider Family Medicine; Visit Provider Family Medicine
DX: R53.1 Weakness (principal); R26.89 Other abnormalities of gait and mobility
CPT/HCPCS: 97161

== ENCOUNTER → 2021-03-08 11:03 | Outpatient (CLI) | payer MEDICARE, SELFPAY ==
[2020-05-14 12:41] VITALS: BMI 27.0
[2021-03-08 13:02] LABS: Add Manual Diff / Slide Review NO; Basophils Absolute Auto 100 /uL (0-100); Basophils Percent Auto 0.9 % (0-2); Eosinophils Absolute Auto 0 /uL (0-450); Eosinophils Percent Auto 0.8 % (2-4); Hematocrit 41.1 % (41-53); Hemoglobin 13.4 g/dL (13.5-17.5); Lymphocytes Absolute Auto 1700 /uL (1100-4500); Lymphocytes Percent Auto 29.1 % (25-40); Mean Corpuscular HGB Conc 32.6 % (30-36); Mean Corpuscular Hemoglobin 27.6 PG (26-34); Mean Corpuscular Volume 84.5 fL (80-100); Monocytes Absolute Auto 700 /uL (0-900); Neutrophils Absolute Auto 3400 /uL (1500-7000); Neutrophils Percent Auto 57.2 % (50-75); Platelet Count 168 X10^3/uL (150-400); Red Blood Cell Count 4.86 X10^6/uL (4.5-5.9)
[2021-03-08 13:31] LABS: Alanine Aminotransferase 40 IU/L (<50); Albumin 3.9 g/dL (3.5-5.0); Albumin Globulin Ratio 1.2 (1.0-2.8); Alkaline Phosphatase 223 U/L (38-126); Aspartate Aminotransferase 39 IU/L (17-59); BUN Creatinine Ratio 25.7 (6-22); Bilirubin Total 3.1 mg/dL (0.2-1.3); Blood Urea Nitrogen 45 mg/dL (9-20); Calcium 9.4 mg/dL (8.4-10.2); Carbon Dioxide 30 mmol/L (22-32); Chloride 101 mmol/L (98-107); Estimated Glomerular Filt Rate 37.6 mL/min (>60); Globulin 3.2 g/dL (1.7-4.1); Glucose 100 mg/dL (80-110); HEMOLYSIS < 15 (0-50); Potassium 4.7 mmol/L (3.4-5.1); Sodium 136 mmol/L (137-145); Total Protein 7.1 g/dL (6.3-8.2)
== END ==
PROVIDERS: Family Provider Family Medicine; PCP Family Medicine; Referring Provider Family Medicine; Visit Provider Family Medicine
DX: R79.1 Abnormal coagulation profile (principal)
CPT/HCPCS: 36415; 80053; 85025

== ENCOUNTER 2021-03-11 13:19 | Inpatient (IN) | payer MEDICARE, SELFPAY ==
[2020-05-14 12:41] VITALS: BMI 27.0
[2021-03-11] VITALS (20 sets, daily range): BP systolic 94–114; BP diastolic 61–81; PULSE 84–113; RESP 15–28; TEMP 36–37.1; O2SAT 86–100; BMI 28.7
--- NOTE | 2021-03-11 13:36 | DI.RAD.S_ITS ---
PROCEDURE: XR CHEST 1V INDICATIONS: SHORT OF BREATH TECHNIQUE: One view of the chest was acquired. COMPARISON: [facility], CT, CT ANGIO CHEST PE PROTOCOL, 12/22/2020, 19:49. [facility], CR, XR CHEST 1V, 12/23/2020, 2:27. FINDINGS: Surgical changes and devices: A cardiac pacemaker is seen with pulse generator in the left chest. Lungs and pleura: No focal airspace opacity is identified. No pleural effusions or pneumothorax. Mediastinum: Mediastinal contours appear normal. The cardiomediastinal silhouette is enlarged. Moderate aortic atherosclerotic calcifications. Bones and chest wall: No suspicious bony lesions. Overlying soft tissues appear unremarkable. Healed right clavicular fracture is noted. IMPRESSION: Cardiomegaly. No acute consolidation or pleural effusion is seen. Dictated by: Benjy Ramon M.D. on 03/11/2021 at 15:01 Approved by: Benjy Ramon M.D. on 03/11/2021 at 15:04
--- NOTE | 2021-03-11 13:43 | ED_ITS ---
HPI - General Adult General Chief complaint: Shortness of Breath/Dyspnea Stated complaint: SOB, Cough, Low O2, Sent from A Time Seen by Provider: 03/11/21 13:28 Source: patient Mode of arrival: Wheelchair History of Present Illness HPI narrative: Patient is an 80-year-old male. Somewhat of a poor historian however was sent over from his primary doctor's office for evaluation of shortness of breath and cough and low O2 saturations. He went to his primary doctor's office today to have his INR drawn. He is on Coumadin. Has a history of atrial fibrillation. Also has a pacemaker in place. While he was there it was noticed that he was visibly short of breath. Here in the emergency department triage states that the patient did appear to be somewhat cyanotic. Was short of breath even with transferring from his wheelchair to his bed. Patient denies chest pain. Unsure exactly how long the symptoms have been going on. Initially patient states that it is been going on for several days if not weeks but apparently it is been worsening and then potentially increased in severity over the past 3 days. He has no chest discomfort. No lower extremity swelling. Reports some lower abdominal discomfort but he states this is not all the time and really only occurs when he lays down occasionally. Approximately 2 months ago he was admitted to an outside facility where he had an extended stay. Family is somewhat unsure as to exactly what transpired during that time but appears that he had a ?infection ?which prolonged his hospital stay. He is unvaccinated against COVID-19. Does not wear oxygen home. Denies any underlyin g lung issues. Related Data Home Medications Medication Instructions Recorded Confirmed atorvastatin 10 mg tablet 5 mg PO BEDTIME 07/25/19 03/11/21 tafamidis 61 mg capsule 61 mg PO BEDTIME 10/16/20 03/11/21 aspirin 81 mg tablet,delayed 81 mg PO QAM 01/21/21 03/11/21 release (Adult Low Dose Aspirin) bumetanide 1 mg tablet 1 mg PO BID 01/21/21 03/11/21 metoprolol succinate 100 mg 100 mg PO BID 01/21/21 03/11/21 tablet,extended release 24 hr warfarin 5 mg tablet 2.5 mg PO QPM tab 03/07/21 03/11/21 Allergies Allergy/AdvReac Type Severity Reaction Status Date / Time No Known Drug Allergies Allergy Verified 01/21/21 14:58 Review of Systems Constitutional Constitutional: Denies fever(s) and Denies headache(s) Eyes Eyes: Reports system reviewed and no additional complaints, except as documented ENT Ears, Nose, Mouth, and Throat: Denies headache(s) Cardiovascular Comments: Denies chest pain Respiratory Respiratory: Reports as per HPI and Reports system reviewed and no additional complaints, except as documented Gastrointestinal Gastrointestinal: Reports system reviewed and no additional complaints, except as documented Genitourinary Genitourinary: Reports system reviewed and no additional complaints, except as documented Musculoskeletal Musculoskeletal: Reports system reviewed and no additional complaints, except as documented Integumentary/Breasts Skin/Breast: Reports system reviewed and no additional complaints, except as documented Neurologic Neurologic: Denies headache(s) Hematologic/Lymphatic On Anticoagulants: Yes Allergic/Immunologic Allergic/Immunologic: Reports system reviewed and no additional complaints, except as documented Patient History Medical History 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 Atrial fibrillation Bradycardia Chicken pox Diverticular disease DVT (deep venous thrombosis) Fractures Hyperbilirubinemia Hypertension Measles Plantar warts Pulmonary embolism Surgical History Anesthesia History of appendectomy History of broken leg (~2013) History of carpal tunnel surgery (~2014) History of cataract surgery (~2009) History of knee replacement History of prostate surgery (~1999) History of surgery (~2015) Pacemaker (~2003) Family History Mother Cancer Other Leukemia Social History household members: spouse Smoking Status: Never smoker alcohol intake: never Smoking Status: Never smoker alcohol intake frequency: 0-2 drinks per day Substance Use Type: does not use Exam Initial Vital Signs Initial Vital Signs: Vital Signs Pulse Rate 105 H 03/11/21 14:01 Respiratory Rate 22 03/11/21 14:01 Blood Pressure 101/75 03/11/21 14:01 Pulse Oximetry 96 03/11/21 14:01 Const General: cooperative, comfortable and well developed HENMT Head: normal to inspection and normocephalic Chest Chest: normal inspection of the chest Resp Effort & Inspection: normal respiratory effort, not labored and tachypneic Auscultation: clear to auscultation bilaterally Cardio Rate: tachycardic Rhythm: abnormal rhythm GI Palpation: soft and No tender Percussion: normal to percussion Skin General: no rashes or lesions noted Neuro General: patient alert, patient awake and moves all extremities Extrem General: normal to inspection and capillary refill normal Psych Appearance: grossly normal and well kempt Course Orders Ordered: ED Orders 03/11/21 13:10 Complete Blood Count AUTO DIFF Stat Comprehensive Metabolic Panel Stat Lactate (Lactic Acid) Stat Lipase Stat NT-proBNP (BNP-Adult 18+) Stat Partial Thromboplastin Time Stat Procalcitonin Stat Prothrombin Time INR Stat Troponin & CK Cardiac Panel Stat 03/11/21 13:36 XR chest 1V Stat 03/11/21 13:37 EKG-12 Lead Stat 03/11/21 13:58 Blood Culture Stat Discontinued Medications Furosemide (Furosemide 100 Mg/10 Ml Vial) 60 mg IV NOW ONE Stop: 03/11/21 16:14 Last Admin: 03/11/21 16:42 Dose: 60 mg Documented by: DONTAE Vital Signs Vital signs: Vital Signs - 8 hr 03/11/21 14:01 03/11/21 14:15 03/11/21 14:30 Pulse Rate 105 H 84 94 H Respiratory Rate 22 20 22 Blood Pressure 101/75 99/76 100/80 Pulse Oximetry 96 100 100 03/11/21 14:45 03/11/21 15:00 03/11/21 15:15 Pulse Rate 98 H 99 H 92 H Respiratory Rate 21 25 H 19 Blood Pressure 114/71 94/61 Pulse Oximetry 99 97 03/11/21 15:30 03/11/21 15:45 03/11/21 16:00 Pulse Rate 92 H 96 H 95 H Respiratory Rate 21 15 23 Blood Pressure Pulse Oximetry 93 94 86 L 03/11/21 16:15 03/11/21 16:30 Pulse Rate 100 H 105 H Respiratory Rate 24 24 Blood Pressure Pulse Oximetry 89 L 96 Medical Decision Making Medical Records Medical records reviewed: Yes I reviewed the patient's medical records. Lab Data Lab results reviewed: Yes I reviewed the patient's lab results. Result diagrams: 03/11/21 13:10 03/11/21 13:10 Labs: Lab Results 0903/11/21 03/11/21 Range/Units 13:10 13:10 13:10 WBC 6.3 (4.5-11.0) X10^3/uL RBC 4.88 (4.5-5.9) X10^6/uL Hgb 13.3 L (13.5-17.5) g/dL Hct 41.4 (41-53) % MCV 84.8 (80-100) fL MCH 27.2 (26-34) PG MCHC 32.1 (30-36) % RDW 16.4 H (11.6-14.8) % Plt Count 189 (150-400) X10^3/uL Neut % (Auto) 55.9 (50-75) % Lymph % (Auto) 30.6 (25-40) % [place] % (Auto) 11.8 (3-14) % Eos % (Auto) 0.6 L (2-4) % Baso % (Auto) 1.1 (0-2) % Neut # (Auto) 3500 (0147-7704) /uL Lymph # (Auto) 1900 (9529-9577) /uL [place] # (Auto) 700 (0-900) /uL Eos # (Auto) 0 (0-450) /uL Baso # (Auto) 100 (0-100) /uL PT 32.4 H (10.1-12.7) SECONDS INR 2.8 H (0.9-1.3) APTT 40 H (26.4-36.2) SECONDS Sodium 137 (137-145) mmol/L Potassium 4.5 (3.4-5.1) mmol/L Chloride 100 (98-107) mmol/L Carbon Dioxide 32 (22-32) mmol/L BUN 53 H (9-20) mg/dL Creatinine 1.83 H (0.66-1.25) mg/dL Estimated GFR 35.7 L (>60) mL/min BUN/Creatinine Ratio 29.0 H (6-22) Glucose 130 H (80-110) mg/dL Lactate (0.7-2.1) mmol/L Calcium 9.2 (8.4-10.2) mg/dL Total Bilirubin 3.5 H (0.2-1.3) mg/dL AST 49 (17-59) IU/L ALT 46 (<50) IU/L Alkaline Phosphatase 270 H (38-126) U/L Total Creatine Kinase 54 L (55-170) U/L CK-MB (CK-2) TNP CK-MB (CK-2) Rel Index TNP Troponin I 0.051 H (0.01-0.034) ng/mL NT-Pro-B Natriuret Pep 17375 H (<450) pg/mL Total Protein 7.7 (6.3-8.2) g/dL Albumin 4.2 (3.5-5.0) g/dL Globulin 3.5 (1.7-4.1) g/dL Albumin/Globulin Ratio 1.2 (1.0-2.8) Lipase 138 (23-300) U/L Procalcitonin (<0.5) ng/mL SARS-CoV-2 (PCR) (Negative) 03/11/21 03/11/21 03/11/21 Range/Units 13:10 13:10 13:40 WBC (4.5-11.0) X10^3/uL RBC (4.5-5.9) X10^6/uL Hgb (13.5-17.5) g/dL Hct (41-53) % MCV (80-100) fL MCH (26-34) PG MCHC (30-36) % RDW (11.6-14.8) % Plt Count (150-400) X10^3/uL Neut % (Auto) (50-75) % Lymph % (Auto) (25-40) % [place] % (Auto) (3-14) % Eos % (Auto) (2-4) % Baso % (Auto) (0-2) % Neut # (Auto) (8120-4558) /uL Lymph # (Auto) (1006-5040) /uL [place] # (Auto) (0-900) /uL Eos # (Auto) (0-450) /uL Baso # (Auto) (0-100) /uL PT (10.1-12.7) SECONDS INR (0.9-1.3) APTT (26.4-36.2) SECONDS Sodium (137-145) mmol/L Potassium (3.4-5.1) mmol/L Chloride (98-107) mmol/L Carbon Dioxide (22-32) mmol/L BUN (9-20) mg/dL Creatinine (0.66-1.25) mg/dL Estimated GFR (>60) mL/min BUN/Creatinine Ratio (6-22) Glucose (80-110) mg/dL Lactate 1.4 (0.7-2.1) mmol/L Calcium (8.4-10.2) mg/dL Total Bilirubin (0.2-1.3) mg/dL AST (17-59) IU/L ALT (<50) IU/L Alkaline Phosphatase (38-126) U/L Total Creatine Kinase (55-170) U/L CK-MB (CK-2) CK-MB (CK-2) Rel Index Troponin I (0.01-0.034) ng/mL NT-Pro-B Natriuret Pep (<450) pg/mL Total Protein (6.3-8.2) g/dL Albumin (3.5-5.0) g/dL Globulin (1.7-4.1) g/dL Albumin/Globulin Ratio (1.0-2.8) Lipase (23-300) U/L Procalcitonin 0.18 (<0.5) ng/mL SARS-CoV-2 (PCR) Negative (Negative) Urine Dip Bedside Urine Glucose Negative Bedside Urine Bilirubin - Negative Bedside Urine Ketone - Negative Urine Specific [place] 1.020 Bedside Urine Occult Blood - Negative Bedside Urine pH 2.0 Bedside Urine Protein - Negative Bedside Urine Urobilinogen - Negative Bedside Urine Nitrite - Negative Bedside Urine Leukocytes - Negative Esterase Point of care testing: Urine Dip Bedside Urine Glucose Negative Bedside Urine Bilirubin - Negative Bedside Urine Ketone - Negative Urine Specific [place] 1.020 Bedside Urine Occult Blood - Negative Bedside Urine pH 2.0 Bedside Urine Protein - Negative Bedside Urine Urobilinogen - Negative Bedside Urine Nitrite - Negative Bedside Urine Leukocytes - Negative Esterase Imaging Data Chest x-ray: Radiologist's Impression: [address] [address] XRay Report Signed Patient: Anamaria Saleh MR#: [id number] : 1940 Acct:[id number] Age/Sex: 80 / M Date of Service: 03/11/21 Loc: ED Accession Number: [id number] ?? Procedure: XR chest 1V Ordering Provider: Janes Mireles D.O. PROCEDURE:? XR CHEST 1V ? INDICATIONS:? SHORT OF BREATH ? TECHNIQUE:? One view of the chest was acquired.? ? COMPARISON:? [facility], CT, CT ANGIO CHEST PE PROTOCOL, 12/22/2020, 19:49.? [facility], CR, XR CHEST 1V, 12/23/2020, 2:27. ? FINDINGS:? ? Surgical changes and devices:? A cardiac pacemaker is seen with pulse generator in the left chest.? ? Lungs and pleura:? No focal airspace opacity is identified.? No pleural effusions or pneumothorax.? ? Mediastinum:? Mediastinal contours appear normal.? The cardiomediastinal silhouette is enlarged.? Moderate aortic atherosclerotic calcifications. ? Bones and chest wall:? No suspicious bony lesions.? Overlying soft tissues appear unremarkable.? Healed right clavicular fracture is noted. ? IMPRESSION:? Cardiomegaly.? No acute consolidation or pleural effusion is seen. ? ? Dictated by: Benjy Ramon M.D. on 03/11/2021 at 15:01 ? ? Approved by: Benjy Ramon M.D. on 03/11/2021 at 15:04?? ECG Data Attestation: I personally reviewed and interpreted this ECG as follows: Interpretation: Paste rhythm Ventricular rate of 95 Left axis deviation Occasional PVC No ST T wave changes MDM Narrative Medical decision making narrative: Patient was visibly short of breath upon arrival. Had a difficult time a NuvaRing from the wheelchair into the bed. This apparently is been worsening for the past couple days but is been going on for the past couple weeks. He denies any chest pain. He is anticoagulated. Has a history of AFib. Has occasional nonsustained ventricular tachycardia. Review of his medical record shows that he has had a echocardiogram which shows an ejection fraction of 15%. I did discuss the case with Dr. 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 He has a history of AFib as well. He recommended admission and diuresis. Discussed the case with Dr. Devine with internal medicine who will admit for further evaluation and treatment. I did discuss the admission with the patient and the family. They expressed understanding and agreement as well. Discharge Plan Departure Patient Disposition: Admitted as Observation Clinical Impression: CHF (congestive heart failure), Atrial fibrillation, Amyloid heart disease, Non-sustained ventricular tachycardia, Hypoxia Admit Date/Time: 03/11/21 16:42 Admit Provider: Jasper Devine
--- NOTE | 2021-03-11 13:53 | PC.NURSE ---
Patient has not recovered completely since hospitalized for days at [facility] in December. Patient states increase in SOB recently. Patient winded with transfer from wheelchair to bed. Denies chest pain.
[2021-03-11 14:04] LABS: Add Manual Diff / Slide Review NO; Basophils Absolute Auto 100 /uL (0-100); Basophils Percent Auto 1.1 % (0-2); Eosinophils Absolute Auto 0 /uL (0-450); Eosinophils Percent Auto 0.6 % (2-4); Hematocrit 41.4 % (41-53); Hemoglobin 13.3 g/dL (13.5-17.5); Lymphocytes Absolute Auto 1900 /uL (1100-4500); Lymphocytes Percent Auto 30.6 % (25-40); Mean Corpuscular HGB Conc 32.1 % (30-36); Mean Corpuscular Hemoglobin 27.2 PG (26-34); Mean Corpuscular Volume 84.8 fL (80-100); Monocytes Absolute Auto 700 /uL (0-900); Monocytes Percent Auto 11.8 % (3-14); Neutrophils Absolute Auto 3500 /uL (1500-7000); Neutrophils Percent Auto 55.9 % (50-75); Platelet Count 189 X10^3/uL (150-400); Red Blood Cell Count 4.88 X10^6/uL (4.5-5.9); Red Cell Distribution Width 16.4 % (11.6-14.8); White Blood Cell Count 6.3 X10^3/uL (4.5-11.0)
[2021-03-11 14:05] LABS: INR 2.8 (0.9-1.3); Prothrombin Time 32.4 SECONDS (10.1-12.7)
[2021-03-11 14:08] LABS: PTT Partial Thromboplastin Tim 40 SECONDS (26.4-36.2)
[2021-03-11 14:41] LABS: Alanine Aminotransferase 46 IU/L (<50); Albumin 4.2 g/dL (3.5-5.0); Albumin Globulin Ratio 1.2 (1.0-2.8); Alkaline Phosphatase 270 U/L (38-126); Aspartate Aminotransferase 49 IU/L (17-59); Bilirubin Total 3.5 mg/dL (0.2-1.3); Blood Urea Nitrogen 53 mg/dL (9-20); Calcium 9.2 mg/dL (8.4-10.2); Carbon Dioxide 32 mmol/L (22-32); Chloride 100 mmol/L (98-107); Creatine Kinase 54 U/L (55-170); Estimated Glomerular Filt Rate 35.7 mL/min (>60); Globulin 3.5 g/dL (1.7-4.1); Glucose 130 mg/dL (80-110); HEMOLYSIS < 15 (0-50); Lipase 138 U/L (23-300); Potassium 4.5 mmol/L (3.4-5.1); Sodium 137 mmol/L (137-145); Total Protein 7.7 g/dL (6.3-8.2)
[2021-03-11 14:42] LABS: Lactate (Lactic Acid) 1.4 mmol/L (0.7-2.1)
[2021-03-11 14:49] LABS: NT-proBNP (BNP-Adult 18+) 15100 pg/mL (<450); Troponin I 0.051 ng/mL (0.01-0.034)
[2021-03-11 14:54] LABS: Procalcitonin 0.18 ng/mL (<0.5)
--- NOTE | 2021-03-11 15:27 | PC.NURSE ---
COVID swab recollected.
[2021-03-11 15:35] LABS: COVID-19 CEPHEID PCR (VTM/NP) Negative (Negative)
--- NOTE | 2021-03-11 16:00 | PC.NURSE ---
Patient remains on cardiac rn, having multiple PVC's, Dr Mireles aware. Patient denies significant improvement in SOB on 2L NC ranging from 88-93 %, capillary refill 4secs. Resting with at bedside.
[2021-03-11] MEDS: FUROSEMIDE 100 MG/10 ML VIAL 60 MG IV (16:42)
--- NOTE | 2021-03-11 17:25 | PC.NURSE ---
Attempted to call to update on patients move to [facility]. No answer at either number and no ability to leave voicemail.
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
--- NOTE | 2021-03-11 19:05 | PC.ADMIT ---
[id number] Admission Note: Patient admitted to floor from ER at 17:37. Alert and oriented to self and situation. Oriented to room, shown how to use call light. Bed alarm on, Brakes on bed locked, door open by nurses station for safety. The patient,Anamaria Saleh,80 y/o, was given written information regarding hospital policies, unit procedures and contact persons. Patient's smoking status: Never smoker. Vital Signs - 8 hr 03/11/21 14:01 03/11/21 14:15 03/11/21 14:30 Temperature Pulse Rate 105 H 84 94 H Respiratory Rate 22 20 22 Blood Pressure 101/75 99/76 100/80 Pulse Oximetry 96 100 100 03/11/21 14:45 03/11/21 15:00 03/11/21 15:15 Temperature Pulse Rate 98 H 99 H 92 H Respiratory Rate 21 25 H 19 Blood Pressure 114/71 94/61 Pulse Oximetry 99 97 03/11/21 15:30 03/11/21 15:45 03/11/21 16:00 Temperature Pulse Rate 92 H 96 H 95 H Respiratory Rate 21 15 23 Blood Pressure Pulse Oximetry 93 94 86 L 03/11/21 16:15 03/11/21 16:30 03/11/21 16:43 Temperature Pulse Rate 100 H 105 H 100 H Respiratory Rate 24 24 27 H Blood Pressure 99/81 Pulse Oximetry 89 L 96 97 03/11/21 16:45 03/11/21 17:00 03/11/21 17:35 Temperature 96.8 F L Pulse Rate 102 H 105 H 84 Respiratory Rate 28 H 18 16 Blood Pressure 107/75 111/78 105/77 Pulse Oximetry 86 L 97 96 03/11/21 17:58 Temperature Pulse Rate Respiratory Rate Blood Pressure Pulse Oximetry 97
[2021-03-11 21:07] LABS: Troponin I 0.054 ng/mL (0.01-0.034)
[2021-03-11] MEDS: ATORVASTATIN 20 MG TABLET 5 MG PO (21:40)
[2021-03-12] VITALS (17 sets, daily range): BP systolic 107–115; BP diastolic 50–76; PULSE 82–107; RESP 18–20; TEMP 36.1–36.6; O2SAT 90–98; BMI 26.9
--- NOTE | 2021-03-12 02:20 | PC.NURSE ---
Patient is alert and oriented except states year is 192. Breath sounds diminished but CTA; on oxygen at 1L/min per NC with sat of 90% so increased to 1.5L/min. HR irregular with telemetry reading of afib CVR w/frequent PVC's. Denied nausea. BT present and abdomen is soft. Reports urinary frequency related to diuretic use but denies dysuria; uses urinal while sitting on edge of bed. Gait not assessed but evening RN reported he needs SBA. Is able to turn himself in bed. Denied pain. Fall risk score is moderate and bed alarm is activated.
[2021-03-12 06:55] LABS: Add Manual Diff / Slide Review NO; Basophils Absolute Auto 100 /uL (0-100); Eosinophils Absolute Auto 100 /uL (0-450); Eosinophils Percent Auto 1.3 % (2-4); Hematocrit 39.1 % (41-53); Hemoglobin 12.6 g/dL (13.5-17.5); Lymphocytes Absolute Auto 1900 /uL (1100-4500); Lymphocytes Percent Auto 32.3 % (25-40); Mean Corpuscular HGB Conc 32.2 % (30-36); Mean Corpuscular Hemoglobin 27.1 PG (26-34); Mean Corpuscular Volume 84.1 fL (80-100); Monocytes Absolute Auto 700 /uL (0-900); Monocytes Percent Auto 11.8 % (3-14); Neutrophils Absolute Auto 3100 /uL (1500-7000); Neutrophils Percent Auto 53.6 % (50-75); Platelet Count 172 X10^3/uL (150-400); Red Blood Cell Count 4.66 X10^6/uL (4.5-5.9); Red Cell Distribution Width 16.6 % (11.6-14.8); White Blood Cell Count 5.8 X10^3/uL (4.5-11.0)
[2021-03-12 07:04] LABS: INR 2.6 (0.9-1.3); Prothrombin Time 30.2 SECONDS (10.1-12.7)
[2021-03-12 07:09] LABS: Alanine Aminotransferase 40 IU/L (<50); Albumin 3.7 g/dL (3.5-5.0); Albumin Globulin Ratio 1.2 (1.0-2.8); Alkaline Phosphatase 248 U/L (38-126); Aspartate Aminotransferase 38 IU/L (17-59); BUN Creatinine Ratio 32.7 (6-22); Bilirubin Total 2.9 mg/dL (0.2-1.3); Bilirubin Unconjugated 2.7 mg/dL (0.0-1.1); Blood Urea Nitrogen 50 mg/dL (9-20); Calcium 8.9 mg/dL (8.4-10.2); Carbon Dioxide 31 mmol/L (22-32); Chloride 102 mmol/L (98-107); Estimated Glomerular Filt Rate 43.9 mL/min (>60); Globulin 3.2 g/dL (1.7-4.1); Glucose 102 mg/dL (80-110); HEMOLYSIS < 15 (0-50); Magnesium 2.5 mg/dL (1.6-2.3); Sodium 137 mmol/L (137-145); Total Protein 6.9 g/dL (6.3-8.2)
[2021-03-12 07:45] LABS: TSH w/ Reflex to FT4 2.92 uIU/mL (0.47-4.68)
--- NOTE | 2021-03-12 08:31 | PC.NURSE ---
Day shift: Dr Devine informed of Pt's V-tac run at approx 0815.
[2021-03-12] MEDS: METOPROLOL ER 50 MG TABLET 100 MG PO ×2 (08:38→21:07)
[2021-03-12] MEDS: ASPIRIN EC 81 MG TABLET PO (08:38)
[2021-03-12] MEDS: FUROSEMIDE 40 MG/4 ML VIAL IV ×2 (08:38→15:21)
[2021-03-12] MEDS: SODIUM CHLORIDE 0.9% FLUSH 10 ML IV ×3 (08:39→21:07)
--- NOTE | 2021-03-12 08:59 | CM.DANOTE ---
DCP: Case received, EMR reviewed and met with patient. Introduced self and role. Was able to obtain information from patient regarding his baseline activity status prior to hospitalization, as well as some health history. DCP assessment completed with information currently available. Patient is an 80 year olf male who admitted yesterday afternoon to the care of the hospitalist team. PCP: Dr. Verma. Payer: confirmed: Medicare/[employer]. Patient came to the hospital via wheel-chair sent over from [place]. Patient was having his INR checked at the clinic, secondary to being on Coumadin, and developed increased shortness of breath. His oxygen sats had been in the mid 80s, after 2 liters oxygen, in the 90s. Patient holds current diagnosis of acute respiratory failure secondary to acute on chronic systolic heart failure. Patient has history of amylordosis, he had been at [facility] a few months ago with cardiac issues. Patient has pacemaker. Met with patient in his room. He is pleasant, alert and oriented. He was sitting up in bed, oxygen in place. Confirmed with him that he resides in [facility] with his spouse, Ruba. Confirmed with him that he is independent, does drive upon occasion, and does not have home oxygen. He uses no DME at his baseline. P: DCP to continue to follow. Patient should be able to go home when he is deemed medically stable. Rukhsana Sheikh RN/Head Animal Keeper Discharge Planning/Care Management CM Discharge Assessment Start: 03/12/21 08:57 Freq: Status: Active Protocol: Document 03/12/21 08:58 (Rec: 03/12/21 08:59 [id number]) Discharge Planning Assessment Assigned Septic Tank Service Technician Rukhsana Sheikh RN/Head Animal Keeper Advance Directives? Yes Advance Directives on File No History Provided By Patient,Medical Record Prior Living Arrangements House Household Members spouse Type of transporation used prior to Drives own vehicle admit Independent with ADL's Yes Is patient alert and oriented? Yes Needs Assistance With Home Chores / Shopping Caregiver for Another No Barriers to Discharge No Discharge Plan Home Transportation Arrangement Spouse Referrals Initiated None needed Whiteboard Updated in Patient Room with Yes name and ext. # of Septic Tank Service Technician Review Status In Process Next Review Type Continued Stay Review
--- NOTE | 2021-03-12 10:00 | PC.NURSE ---
Day shift: Ok w/ Dr Casanova that Pt use I.S.. Pt has been instructed and encouraged to use at this time. O2 94% RA.
[2021-03-12 11:17] LABS: Acinetobacter baumannii Not Detected (Not Detect); Candida albicans Not Detected (Not Detect); Candida glabrata Not Detected (Not Detect); Candida krusei Not Detected (Not Detect); Candida parapsilosis Not Detected (Not Detect); Candida tropicalis Not Detected (Not Detect); E. coli Not Detected (Not Detect); Enterobacter cloacae complex Not Detected (Not Detect); Enterobacteriaceae species Not Detected (Not Detect); Enterococcus species Not Detected (Not Detect); Haemophilus influenzae Not Detected (Not Detect); KPC (carbapenem-resist gene) Not Detected (Not Detect); Listeria monocytogenes Not Detected (Not Detect); Methicillin-resistant gene Not Detected (Not Detect); Neisseria meningitidis Not Detected (Not Detect); Proteus species Not Detected (Not Detect); Pseudomonas aeruginosa Not Detected (Not Detect); Serratia marcescens Not Detected (Not Detect); Staphylococcus species Detected (Not Detect); Streptococcus agalactiae (Gr B Not Detected (Not Detect); Streptococcus pneumonia Not Detected (Not Detect); Streptococcus pyogenes (Gr A) Not Detected (Not Detect); Streptococcus species Not Detected (Not Detect); Vancomycin-rest genes A/B Not Detected (Not Detect)
--- NOTE | 2021-03-12 11:32 | PC.NURSE ---
Day shift: Dr Devine informed of blood work report from lab at approx 1130.
--- NOTE | 2021-03-12 11:34 | DI.ECHO.S_ITS ---
:Reason For Study: DYSPNEA, ASSESS EF, RECENT OPAL IN : :[place]DA : :Ordering Physician: TENNILLE, : :DENVER SORENSON Performed By: Dorinda Driver : :Referring: DENVER NULL : + + Interpretation Summary There is mild-moderate concentric left ventricular hypertrophy with a D-shaped septum. The ejection fraction is estimated to be 15-20%. The right ventricle is moderately dilated. Right ventricular systolic function is severely reduced. Severe biatrial enlargement. Procedure: A two-dimensional transthoracic echocardiogram with color flow and Doppler was performed in limited views only to assess ejection fraction. There is no prior echocardiogram noted for this patient. The study quality was technically good. The heart rate ranged between 85-100 bpm during the study. Left Ventricle: The left ventricle is normal in size. There is mild-moderate concentric left ventricular hypertrophy. The ejection fraction is estimated to be 15-20%. The interventricular septum is flattened, consistent with a right ventricular pressure/volume condition. There is severe global hypokinesis of the left ventricle. Right Ventricle: There is a pacemaker lead in the right ventricle. The right ventricle is moderately dilated. Right ventricular systolic function is severely reduced. Atria: The left atrium is severely dilated. The right atrium is severely dilated. Mitral Valve: The mitral valve leaflets appear normal. There is no evidence of stenosis, fluttering, or prolapse. There is mild mitral annular calcification. Aortic Valve: The aortic valve opens well. Tricuspid Valve: The tricuspid valve is normal. Great Vessels: The aortic root is normal size. Pericardium/ Pleura There is a trace pericardial effusion. There is no pleural effusion. MMode/2D Measurements & Calculations LVIDd: 5.2 cm LA A2 area: 30.7 cm2 LVIDs: 4.8 cm LA A4 area: 31.1 cm2 FS: 7.7 % LA length (vol): 7.2 cm IVSd: 1.3 cm LA vol: 112.6 ml LVPWd: 1.3 cm LA vol index: 54.6 ml/m2 LV hatch. diameter/BSA (cm/m^2): 2.5 LV sys. diameter/BSA (cm/m^2): 2.3 RA long axis: 6.7 cm RVD1 (basal): 4.0 cm RA area: 34.0 cm2 TAPSE: 1.3 cm RA vol: 146.8 ml RA : 71.2 ml/m2 Reading Physician:02:07 PM
--- NOTE | 2021-03-12 14:15 | PM.PN.1 ---
Subjective Subjective Date Patient Seen: 03/12/21 Time Patient Seen: 14:16 Interval history: 80 year old male admitted with CHF exacerbation. Slight improvement today but dyspnic with minimal exertion. Able to ambulate to bathroom unassisted. Patient with poor waveforms, O2 saturations vary from 87 - 93% on room air. Still likely volume overloaded. Will continue IV diuresis. Exam Vital Signs (past 8 hours): - 03/12/21 07:02 03/12/21 08:28 03/12/21 08:38 Temperature 97.8 F Pulse Rate 89 83 Respiratory Rate 18 Blood Pressure 109/76 Pulse Oximetry 92 98 03/12/21 08:54 03/12/21 10:02 03/12/21 13:17 Temperature Pulse Rate 102 H Respiratory Rate Blood Pressure Pulse Oximetry 94 91 Oxygen Delivery Method Room Air Oxygen Flow Rate 1.5 Narrative Exam Narrative: GENERAL APPEARANCE: Well developed, well nourished, in no acute distress. short of breath with prolonged sentences. SKIN: Inspection of the skin reveals no rashes, ulcerations or petechiae. HEENT:? Normocephalic atraumatic, extraocular muscles are intact, oropharynx is clear and mucous membranes are moist, neck is supple without adenopathy NECK: Supple and symmetric. There was no thyroid enlargement, and no tenderness, or masses were felt. CHEST: Normal AP diameter and normal contour without any kyphoscoliosis. LUNGS: Auscultation of the lungs revealed no wheezes, rhonchi, or rales. CARDIOVASCULAR: regular rate, irregularly irregular rhythm. No m/r/g. ABDOMEN: Soft and nontender with normal bowel sounds. No ascites was noted. MUSCULOSKELETAL: There was no tenderness or effusions noted. Muscle strength and tone were normal. EXTREMITIES: No cyanosis, clubbing or edema. NEUROLOGIC: Alert and oriented x 3. Normal affect. Strength is +5/5 in the Upper Extremities and Lower Extremities Bilaterally. Sensation to touch was normal. Objective Labs Result Diagrams: 03/12/21 06:45 03/12/21 06:45 Labs: Laboratory Results - last 24 hr 03/11/21 03/11/21 03/11/21 13:10 13:10 13:10 WBC RBC Hgb Hct MCV MCH MCHC RDW Plt Count Neut % (Auto) Lymph % (Auto) [place] % (Auto) Eos % (Auto) Baso % (Auto) Neut # (Auto) Lymph # (Auto) [place] # (Auto) Eos # (Auto) Baso # (Auto) PT INR Sodium 137 Potassium 4.5 Chloride 100 Carbon Dioxide 32 BUN 53 H Creatinine 1.83 H Estimated GFR 35.7 L BUN/Creatinine Ratio 29.0 H Glucose 130 H Lactate 1.4 Calcium 9.2 Magnesium Total Bilirubin 3.5 H Conjugated Bilirubin Unconjugated Bilirubin AST 49 ALT 46 Alkaline Phosphatase 270 H Total Creatine Kinase 54 L CK-MB (CK-2) TNP CK-MB (CK-2) Rel Index TNP Troponin I 0.051 H NT-Pro-B Natriuret Pep 35821 H Total Protein 7.7 Albumin 4.2 Globulin 3.5 Albumin/Globulin Ratio 1.2 Lipase 138 Procalcitonin 0.18 TSH A. baumannii (PCR) Tawnya albicans (PCR) C. glabrata (PCR) C. krusei (PCR) C. parapsilosis (PCR) C. tropicalis (PCR) SARS-CoV-2 (PCR) Enterobacteriac sp PCR E. cloacae complex PCR Enterococcus sp PCR E. coli (PCR) H. influenzae (PCR) Klebsiella oxytoca PCR Klebsiella pneumoniae List. monocytogenes PCR N. meningitidis (PCR) Proteus species (PCR) Serratia marcescens PCR Staphylococcus sp PCR Staph aureus (PCR) mecA-Methicil Res Gene Streptococcus sp PCR Group A Strep (PCR) Strep agalactiae (PCR) Strep pneumoniae (PCR) P. aeruginosa (PCR) Tommy/B-Vanco Res Genes KPC-Carbap Res Gene PCR 03/11/21 03/11/21 03/11/21 13:40 13:58 20:37 WBC RBC Hgb Hct MCV MCH MCHC RDW Plt Count Neut % (Auto) Lymph % (Auto) [place] % (Auto) Eos % (Auto) Baso % (Auto) Neut # (Auto) Lymph # (Auto) [place] # (Auto) Eos # (Auto) Baso # (Auto) PT INR Sodium Potassium Chloride Carbon Dioxide BUN Creatinine Estimated GFR BUN/Creatinine Ratio Glucose Lactate Calcium Magnesium Total Bilirubin Conjugated Bilirubin Unconjugated Bilirubin AST ALT Alkaline Phosphatase Total Creatine Kinase CK-MB (CK-2) CK-MB (CK-2) Rel Index Troponin I 0.054 H NT-Pro-B Natriuret Pep Total Protein Albumin Globulin Albumin/Globulin Ratio Lipase Procalcitonin TSH A. baumannii (PCR) Not detected Tawnya albicans (PCR) Not detected C. glabrata (PCR) Not detected C. krusei (PCR) Not detected C. parapsilosis (PCR) Not detected C. tropicalis (PCR) Not detected SARS-CoV-2 (PCR) Negative Enterobacteriac sp PCR Not detected E. cloacae complex PCR Not detected Enterococcus sp PCR Not detected E. coli (PCR) Not detected H. influenzae (PCR) Not detected Klebsiella oxytoca PCR Not detected Klebsiella pneumoniae Not detected List. monocytogenes PCR Not detected N. meningitidis (PCR) Not detected Proteus species (PCR) Not detected Serratia marcescens PCR Not detected Staphylococcus sp PCR Detected H Staph aureus (PCR) Not detected mecA-Methicil Res Gene Not detected Streptococcus sp PCR Not detected Group A Strep (PCR) Not detected Strep agalactiae (PCR) Not detected Strep pneumoniae (PCR) Not detected P. aeruginosa (PCR) Not detected Tommy/B-Vanco Res Genes Not detected KPC-Carbap Res Gene PCR Not detected 03/12/21 03/12/21 03/12/21 06:45 06:45 06:45 WBC 5.8 RBC 4.66 Hgb 12.6 L Hct 39.1 L MCV 84.1 MCH 27.1 MCHC 32.2 RDW 16.6 H Plt Count 172 Neut % (Auto) 53.6 Lymph % (Auto) 32.3 [place] % (Auto) 11.8 Eos % (Auto) 1.3 L Baso % (Auto) 1.0 Neut # (Auto) 3100 Lymph # (Auto) 1900 [place] # (Auto) 700 Eos # (Auto) 100 Baso # (Auto) 100 PT INR Sodium 137 Potassium 4.0 Chloride 102 Carbon Dioxide 31 BUN 50 H Creatinine 1.53 H Estimated GFR 43.9 L BUN/Creatinine Ratio 32.7 H Glucose 102 Lactate Calcium 8.9 Magnesium 2.5 H Total Bilirubin 2.9 H Conjugated Bilirubin 0.0 Unconjugated Bilirubin 2.7 H AST 38 ALT 40 Alkaline Phosphatase 248 H Total Creatine Kinase CK-MB (CK-2) CK-MB (CK-2) Rel Index Troponin I NT-Pro-B Natriuret Pep Total Protein 6.9 Albumin 3.7 Globulin 3.2 Albumin/Globulin Ratio 1.2 Lipase Procalcitonin TSH 2.92 A. baumannii (PCR) Tawnya albicans (PCR) C. glabrata (PCR) C. krusei (PCR) C. parapsilosis (PCR) C. tropicalis (PCR) SARS-CoV-2 (PCR) Enterobacteriac sp PCR E. cloacae complex PCR Enterococcus sp PCR E. coli (PCR) H. influenzae (PCR) Klebsiella oxytoca PCR Klebsiella pneumoniae List. monocytogenes PCR N. meningitidis (PCR) Proteus species (PCR) Serratia marcescens PCR Staphylococcus sp PCR Staph aureus (PCR) mecA-Methicil Res Gene Streptococcus sp PCR Group A Strep (PCR) Strep agalactiae (PCR) Strep pneumoniae (PCR) P. aeruginosa (PCR) Tommy/B-Vanco Res Genes KPC-Carbap Res Gene PCR 03/12/21 06:45 WBC RBC Hgb Hct MCV MCH MCHC RDW Plt Count Neut % (Auto) Lymph % (Auto) [place] % (Auto) Eos % (Auto) Baso % (Auto) Neut # (Auto) Lymph # (Auto) [place] # (Auto) Eos # (Auto) Baso # (Auto) PT 30.2 H INR 2.6 H Sodium Potassium Chloride Carbon Dioxide BUN Creatinine Estimated GFR BUN/Creatinine Ratio Glucose Lactate Calcium Magnesium Total Bilirubin Conjugated Bilirubin Unconjugated Bilirubin AST ALT Alkaline Phosphatase Total Creatine Kinase CK-MB (CK-2) CK-MB (CK-2) Rel Index Troponin I NT-Pro-B Natriuret Pep Total Protein Albumin Globulin Albumin/Globulin Ratio Lipase Procalcitonin TSH A. baumannii (PCR) Tawnya albicans (PCR) C. glabrata (PCR) C. krusei (PCR) C. parapsilosis (PCR) C. tropicalis (PCR) SARS-CoV-2 (PCR) Enterobacteriac sp PCR E. cloacae complex PCR Enterococcus sp PCR E. coli (PCR) H. influenzae (PCR) Klebsiella oxytoca PCR Klebsiella pneumoniae List. monocytogenes PCR N. meningitidis (PCR) Proteus species (PCR) Serratia marcescens PCR Staphylococcus sp PCR Staph aureus (PCR) mecA-Methicil Res Gene Streptococcus sp PCR Group A Strep (PCR) Strep agalactiae (PCR) Strep pneumoniae (PCR) P. aeruginosa (PCR) Tommy/B-Vanco Res Genes KPC-Carbap Res Gene PCR PFSH Medical History 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 Atrial fibrillation Bradycardia Chicken pox Diverticular disease DVT (deep venous thrombosis) Fractures Hyperbilirubinemia Hypertension Measles Plantar warts Pulmonary embolism Surgical History Anesthesia History of appendectomy History of broken leg (~2013) History of carpal tunnel surgery (~2014) History of cataract surgery (~2009) History of knee replacement History of prostate surgery (~1999) History of surgery (~2015) Pacemaker (~2003) Family History Mother Cancer Father Congestive heart failure Other Leukemia Social History household members: spouse Smoking Status: Never smoker alcohol intake: never Assessment & Plan Assessment & Plan narrative: This is an 80-year-old male with a past medical history of amyloidosis and CHF with reduced ejection fraction (most recently around 15% at [place]), PE, DVT, hypertension, hyperlipidemia, atrial fibrillation and bradycardia with pacemaker placement, and a history of CAD who was referred to the emergency room for shortness of breath by his primary care provider's office.? Patient was admitted for acute respiratory failure with hypoxia secondary to decompensated systolic heart failure. 1. Acute respiratory failure secondary to acute on chronic systolic heart failure, present on admission ?- ER provider discussed with [facility] cardiology group, recommended diuresis. Given 60 mg of IV lasix in the ER. Some concern for low flow state as CXR appears clear and he has no leg edema. TTE pending, but with improvement in labs today seems to suggest volume overload. ?- DANGELO, hepatopathy can be from volume overload, may also represent low flow state given EF previously of 15%. ?- check limited TTE to assess EF, pending read. - continue lasix 40 mg IV BID for now, is slightly improved today. ?- consider palliative care discussions depending on progress with diuresis or TTE results. ?- trend creatinine and LFTs. - patient was taking Bumex 1 mg BID as an outpatient and still developed worsening symptoms. 2. atrial fibrillation / flutter with PPM, presumed chronic ?- continue metoprolol, borderline rate control, occasionally rates in the low 100s, but generally <110. ?- continue home coumadin 3. HTN, chronic ?- continue home medications 4. HLD, chronic ?- continue home medications 5. amyloidosis, chronic ?- continue home tafamidis 61 mg, will probably need to bring from home. 6. hx of CAD ?- continue asa, statin 7. NSVT ?- patient with episode of NSVT on monitor shortly after arrival to floor. again this morning. PPM in place. Patient asymptomatic. 8. DANGELO ?- baseline creatinine 1.83, baseline appears around 1.1. Improved to 1.53 with diuresis. ?- likely congestion rather than low flow state. 9. Elevated bilirubin ?- likely congestive hepatopathy. Continue diuresis. code:? Full as discussed with the patient, surrogate decision maker is the patient's DVT:? On Coumadin I have utilized all available immediate resources to obtain, update, or review the patient's current medications. Time Spent With Patient Critical Care time: I spent a total of [] minutes of critical care time on this patient's care today; this time is exclusive of procedural time. Quality VTE Deep Vein Thrombosis/Pulmonary Embolism Present on Admission: No
[2021-03-12] MEDS: WARFARIN 5 MG TABLET 2.5 MG PO (16:52)
--- NOTE | 2021-03-12 21:03 | PC.NURSE ---
Noticed that patient had gotten up to use the restroom without calling first, and unsure if he disabled the bed alarm or it failed to go off. Discussed with patient that he needs to call us when he gets up so we can assure he does not fall and make sure we measure his urine. Patient understood and said he had gotten up a couple of times without us, but would call from now on. Patient did call next time he had to use the restroom. Unclear how many unmeasured voids he had.
[2021-03-12] MEDS: ATORVASTATIN 20 MG TABLET 5 MG PO (21:07)
[2021-03-12] MEDS: TAFAMIDIS 61 MG 61 EACH PO (21:08)
[2021-03-13] VITALS (11 sets, daily range): BP systolic 100–110; BP diastolic 50–75; PULSE 78–103; RESP 18–19; TEMP 35.6–36.9; O2SAT 92–97
--- NOTE | 2021-03-13 02:14 | PC.NURSE ---
Addendum entered by Perlita Davila R.N. 03/13/21 02:21: Denies SOB at rest but reports he still gets SOB on exertion but feels it has improved. Noted to have intermittent dry, non-productive cough Original Note: Patient is alert and oriented. Breath sounds CTA with RA sat of 95%. HR irregular with telemetry reading of afib/flutter CVR w/BBB and occasional PVC's. BURNER SHAFT did report an 8 beat run of v-tach at 2320. Denied nausea. BT present and is passing flatus. Reports continued urinary frequency related to diuretic use but denied dysuria. Is able to turn himself in bed and reportedly gets out of bed with SBA for safety. Trace edema in bilateral feet. Denied pain. Is impulsive and forgets to use call light when needing to get up; fall risk score is moderate and bed alarm is activated.
[2021-03-13 06:22] LABS: INR 2.5 (0.9-1.3)
[2021-03-13 06:24] LABS: Add Manual Diff / Slide Review NO; Basophils Absolute Auto 100 /uL (0-100); Basophils Percent Auto 1.1 % (0-2); Eosinophils Absolute Auto 100 /uL (0-450); Eosinophils Percent Auto 1.2 % (2-4); Hematocrit 39.6 % (41-53); Hemoglobin 12.7 g/dL (13.5-17.5); Lymphocytes Absolute Auto 1900 /uL (1100-4500); Lymphocytes Percent Auto 31.5 % (25-40); Mean Corpuscular HGB Conc 32.2 % (30-36); Mean Corpuscular Volume 83.9 fL (80-100); Monocytes Absolute Auto 700 /uL (0-900); Monocytes Percent Auto 11.5 % (3-14); Neutrophils Absolute Auto 3300 /uL (1500-7000); Neutrophils Percent Auto 54.7 % (50-75); Platelet Count 171 X10^3/uL (150-400); Red Blood Cell Count 4.72 X10^6/uL (4.5-5.9); Red Cell Distribution Width 16.9 % (11.6-14.8)
[2021-03-13 06:31] LABS: Alanine Aminotransferase 36 IU/L (<50); Albumin 3.7 g/dL (3.5-5.0); Albumin Globulin Ratio 1.1 (1.0-2.8); Alkaline Phosphatase 261 U/L (38-126); Aspartate Aminotransferase 36 IU/L (17-59); BUN Creatinine Ratio 32.4 (6-22); Bilirubin Total 3.2 mg/dL (0.2-1.3); Bilirubin Unconjugated 2.9 mg/dL (0.0-1.1); Blood Urea Nitrogen 47 mg/dL (9-20); Calcium 9.2 mg/dL (8.4-10.2); Carbon Dioxide 32 mmol/L (22-32); Chloride 101 mmol/L (98-107); Estimated Glomerular Filt Rate 46.7 mL/min (>60); Globulin 3.3 g/dL (1.7-4.1); Glucose 111 mg/dL (80-110); HEMOLYSIS < 15 (0-50); Magnesium 2.6 mg/dL (1.6-2.3); Potassium 4.1 mmol/L (3.4-5.1); Sodium 136 mmol/L (137-145)
[2021-03-13] MEDS: SODIUM CHLORIDE 0.9% FLUSH 10 ML IV ×2 (08:28→16:13)
[2021-03-13] MEDS: FUROSEMIDE 40 MG/4 ML VIAL IV (08:28)
[2021-03-13] MEDS: ASPIRIN EC 81 MG TABLET PO (08:28)
--- NOTE | 2021-03-13 10:38 | PC.NURSE ---
Patient is confused and thinks that he is at [facility] in [place]. He does not use his callbell and reorient easily. He perfers to just be in his underpants, door closed for privacy and bed alarm on. BS are clear, patient is SOB with exertion and he does breath deep at rest. He is in no apparent distress and is on room air. Lasix iv 40mg given to patient and he has voided 3 times. We have just started to have patient void in the urinal to measure this.
--- NOTE | 2021-03-13 13:00 | PT.IIE ---
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 Atrial fibrillation Bradycardia Chicken pox Diverticular disease DVT (deep venous thrombosis) Fractures Hyperbilirubinemia Hypertension Measles Plantar warts Pulmonary embolism Physical Therapy Inpatient Evaluation/Re-Eval M1 PT/OT-IP Prior Functional Status Start: 03/13/21 15:37 Freq: NEEDED Status: Active Protocol: Document 03/13/21 13:00 AB (Rec: 03/13/21 15:54 AB [email or web address]) Medical Review Prior Functional Status Medical History Reviewed Yes Communication able to make needs known; TRIBE Mobility and Gait pt stated that he is independent with all mobilities and ambulation without AD Social History Household Members spouse Living Arrangements House Number of Floors (Floors) Two Floors Number of Stairs To Enter/Railing? pt stays on main level of the house 5 steps R rail ascending to enter the house Home Environment High Toilet,Walk in Shower Home Equipment Shower Seat with Backrest,Hand Held Shower,Grab Bars Near Toilet,Grab Bars In Shower M2 PT-IP Current Condition Start: 03/13/21 15:37 Freq: NEEDED Status: Active Protocol: Document 03/13/21 13:00 AB (Rec: 03/13/21 15:54 AB [email or web address]) Physical Therapy Current Condition Current Condition Evaluation Date 03/13/21 Treatment Diagnosis CHF; A-fib; difficulty in walking Onset Date 03/12/21 Precautions Other Precautions falls, O2 sat M3 PT-IP Subjective Start: 03/13/21 15:37 Freq: NEEDED Status: Active Protocol: Document 03/13/21 13:00 AB (Rec: 03/13/21 15:54 AB [email or web address]) Subjective Physical Therapy Visit Type Type Initial Evaluation Visit Start Time 13:00 Visit Stop Time 13:37 Total Visit Minutes 37 Number of REPAIRER EVAPORATOR Visits 0 Physical Therapy Visit Comments Patient Comments agreeable to do PT Therapy Pain Assessment Pain Present Pain Present Denied Pain M4 PT-IP Mobility and Gait Start: 03/13/21 15:37 Freq: NEEDED Status: Active Protocol: Document 03/13/21 13:00 AB (Rec: 03/13/21 15:54 AB [email or web address]) PT-Transfer Assessment Sit to and From Stand Sit to and from Stand Standby Assistance,Use of Upper Extremities Equipment Transfer Assistive Device None,Gait Belt Orthotic/Prosthetic Devices or Brace: No Comments Mobility Comments pt sitting on EOB and agreed to do PT. O2 sat at rest on room air: 95% GA: 96-114 bpm. pt completed sit to stand SBA. ambulated in the hallway without AD CGA. unable to get O2 sat reading. pt with unsteady gait and unable to ambulate a straight path. (+) SOB. O2 sat reading unsuccessful. pt with standing rest break and cued for deep breathing. completed up/down steps using R rail ascending CGA. ambulated back to his room without AD CGA. (+ ) LOB x 3 requiring min A for steadiness. pt sat on EOB. O2 sat took sometime to get: 79 % needed > 5 min to get to 83 % and cues for deep breathing. informed pt and spouse regarding decrease o2 sat reading and how it is affecting currently mobility and safety. informed nurse Maloney. Informed Dr. Sosa. Gait Assessment Gait Gait Assistance Required: Contact Guard Assist,Minimum Assistance,1 Person Assist Distance (Feet) 125 Able to Maintain Weight Bearing Status Yes During Gait Assistive Devices Assistive Device None,Gait Belt Orthotic/Prosthetic Devices or Brace: No Gait Deviations General Gait Pattern Ataxic Factors Limiting Gait Function Factors Limiting Gait Function Decreased Activity Tolerance, Decreased Strength,Poor Balance,Poor Safety Awareness, Respiratory Distress Comments Gait Comments pls refer to moblity section for details Stair Climbing Assessment Evaluation Level of Assist On Stairs Contact Guard Assistance Devices Stair Climbing Assistive Devices Right Railing Technique/Endurance Stair Climbing Direction Ascend and Descend Stair Climbing Technique Step Over Step,Step to Step Number of Steps Climbed 3 Query Text: Stair Climbing Set # Repetitions (reps) 1 PT-Balance Assessment Sitting Balance and Reactions Static Sitting Balance Ability Normal Dynamic Sitting Balance Ability Good Standing Balance and Reactions Static Standing Balance Ability Fair Dynamic Standing Balance Ability Fair Device Used without AD M5 PT-IP Objective Assessments Start: 03/13/21 15:37 Freq: NEEDED Status: Active Protocol: Document 03/13/21 13:00 AB (Rec: 03/13/21 15:54 AB [email or web address]) Orientation Orientation/Cognition Level of Alertness Alert Orientation Name Language Function Ability No Deficits Noted Safety Awareness Decreased Safety Awareness Memory Description No Deficits Noted Gross Range of Motion Lower Extremity ROM Assessment Within Functional Limits Strength Lower Extremity Strength Assessment Within Functional Limits Coordination Assessment Gross Coordination Gross Coordination WNL Sensation Assessment Sensation Gross Sensation WNL Muscle Tone Muscle Tone WNL Yes M6 PT-IP Treatment Start: 03/13/21 15:37 Freq: NEEDED Status: Active Protocol: Document 03/13/21 13:00 AB (Rec: 03/13/21 15:54 AB [id number]) Physical Therapy Treatment Education Education Provided Safety M7 PT-IP Assessment and Plan Start: 03/13/21 15:37 Freq: NEEDED Status: Active Protocol: Document 03/13/21 13:00 AB (Rec: 03/13/21 15:54 AB [email or web address]) PT Summary Assessment and Plan Potential Rehabilitation Potential Fair Status of Condition at Evaluation Evolving Summary Impairments Pain,ROM,Strength,Balance, Coordination,Cognition,Bed Mobility,Transfers,Gait, Activity Tolerance Assessment Summary Pt requiring CGA to min A with mobility and ambulation without AD but has LOB x 3 requiring min A for recovery. Pt has (+) SOB with decrease O2 sat to 79% during ambulation and required > 5 min to recover. Has difficulty obtaining O2 sat reading but pt confirmed SOB and also presents with bluish lips and fingers. pt has a d /c order today and informed the nurse and the doctor regarding pt's current status. will f/u. Goals Bed Mobility Goal Independent Transfer Goal Independent Gait Goal Independent Gait Distance 150 Other Goals up/down 5 steps R rail ascending I Days to Meet Goals 5 Frequency of Treatment Frequency Of Treatment Once a Day Treatment Plan Physical Therapy Treatment Plan Bed Mobility Training,Transfer Training,Gait Training, Therapeutic Exercise,Balance Retraining,Discharge Planning, Neuromuscular Re-ed, Coordination Retraining Precautions Other Precautions O2 sat Recommendations To Nursing Amount of Assist Needed 1 Person Assist Discharge Recommendations PT Discharge Recommendations Home with Assistance, Outpatient PT Other Discharge Recommendations pt may benefit from cardiopulmo rehab Transportation Needs at Discharge Private Vehicle
--- NOTE | 2021-03-13 14:20 | CM.DPC ---
Addendum entered by MI Dang 03/13/21 15:11: ADD: Per , met bedside with pt and spouse after PT eval and concerns and decision now for [facility] referral due to pt's dx and continued medical decline. SW met bedside with pt and spouse and confirmed they are interested in Hospice Info Visit with idea of d/c home with likely new home oxygen and if pt stable for d/c with oxygen tomorrow then d/c to home with Hospice to open when they have availability as pt currently not imminent. Discussed RT assess for new home O2 and that Hospice would deliver DME if needed once they have Info Visit and sign consents. SW also discussed that if pt's ADL needs increase then [facility] is not 24/7 care in the home and need for PP CG agency likely. Spouse acknowledged understanding. Pt currently not requiring much assist for ambulation or ADL's yet. Spouse requests in-person [facility] and SW called [facility] and she states in-person could be an option depending on available SW and will inquire and call back. [facility] faxed new referral to review. SW updated RN and MD that pt may be able to d/c home prior to [facility] opening if stable and RT assesses for home oxygen. BF Original Note: DCP Cont: Per MD, pt may be medically stable to d/c home today pending ambulation/sats. PT ordered and per PT pt was able to ambulate fairly well but lost his balance 3 times and oxygen sats decreased to unsafe levels and does not feel pt is safe for d/c home yet due to oxygen needs. SW met bedside with pt and spouse and explained role and discussed above and pt states he is very disappointed that he may not get to d/c home today but in discussion with spouse she cannot physically assist him if his oxygen levels decrease, if he loses his balance, or falls and spouse preference is for d/c to be cancelled if his oxygen levels are not stable during ambulation. SW discussed RT may need to assess for new home O2 if pt does not stabilize. MD to meet bedside with pt and spouse to determine if d/c needs to be cancelled or have further RT involvement. Plan: SW to follow for possible d/c home via spouse POV tonight vs tomorrow pending oxygen needs. MI Dang
--- NOTE | 2021-03-13 14:39 | CM.DPNOTE ---
Faxed referral packet to [facility] on 03/13/21 and received fax conf. Niurka Dodson CM Asst.
[2021-03-13] MEDS: FUROSEMIDE 100 MG/10 ML VIAL 80 MG IV (16:12)
--- NOTE | 2021-03-13 16:46 | PM.PN.1 ---
Subjective Subjective Date Patient Seen: 03/13/21 Time Patient Seen: 08:00 Interval history: Today he felt less short of breath at baseline. However, when he got up he became short of breath and hypoxemic and unsteady on his feet. Increased dose of lasix was ordered. Discussion was had with family who is interested in hospice. Exam Vital Signs (past 8 hours): - 03/13/21 12:00 03/13/21 12:26 03/13/21 15:25 Temperature 96.5 F L 97.7 F Pulse Rate 90 90 Respiratory Rate 18 18 Blood Pressure 107/50 L 100/75 Pulse Oximetry 97 94 03/13/21 16:31 Temperature Pulse Rate Respiratory Rate Blood Pressure Pulse Oximetry 94 Oxygen Delivery Method Room Air Oxygen Flow Rate 0 Narrative Exam Narrative: GENERAL APPEARANCE: no acute distress LUNGS: clear with no wheezes, rhonchi, or rales. CARDIOVASCULAR: regular rate, irregularly irregular rhythm. No murmurs ABDOMEN: Soft and nontender with normal bowel sounds. No ascites was noted. MUSCULOSKELETAL: There was no tenderness or effusions noted. Muscle strength and tone were normal. EXTREMITIES: No cyanosis, clubbing or edema. NEUROLOGIC: Alert and oriented x 3. Normal affect. Objective Labs Result Diagrams: 03/13/21 06:05 03/13/21 06:05 Labs: Laboratory Results - last 24 hr 03/13/21 03/13/21 03/13/21 06:05 06:05 06:05 WBC 6.0 RBC 4.72 Hgb 12.7 L Hct 39.6 L MCV 83.9 MCH 27.0 MCHC 32.2 RDW 16.9 H Plt Count 171 Neut % (Auto) 54.7 Lymph % (Auto) 31.5 Leslie % (Auto) 11.5 Eos % (Auto) 1.2 L Baso % (Auto) 1.1 Neut # (Auto) 3300 Lymph # (Auto) 1900 Leslie # (Auto) 700 Eos # (Auto) 100 Baso # (Auto) 100 PT 28.0 H INR 2.5 H Sodium 136 L Potassium 4.1 Chloride 101 Carbon Dioxide 32 BUN 47 H Creatinine 1.45 H Estimated GFR 46.7 L BUN/Creatinine Ratio 32.4 H Glucose 111 H Calcium 9.2 Magnesium 2.6 H Total Bilirubin 3.2 H Conjugated Bilirubin 0.0 Unconjugated Bilirubin 2.9 H AST 36 ALT 36 Alkaline Phosphatase 261 H Total Protein 7.0 Albumin 3.7 Globulin 3.3 Albumin/Globulin Ratio 1.1 [facility] Medical History 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 Atrial fibrillation Bradycardia Chicken pox Diverticular disease DVT (deep venous thrombosis) Fractures Hyperbilirubinemia Hypertension Measles Plantar warts Pulmonary embolism Surgical History Anesthesia History of appendectomy History of broken leg (~2013) History of carpal tunnel surgery (~2014) History of cataract surgery (~2009) History of knee replacement History of prostate surgery (~1999) History of surgery (~2015) Pacemaker (~2003) Family History Mother Cancer Father Congestive heart failure Other Leukemia Social History household members: spouse Smoking Status: Never smoker alcohol intake: never Assessment & Plan Assessment & Plan narrative: 80M with PMH of cardiac amyloidosis and CHF with reduced ejection fraction (most recently around 15% at [place]), PE, DVT, hypertension, hyperlipidemia, atrial fibrillation and bradycardia with pacemaker placement, and a history of CAD who presented with shortness of breath 1. Acute respiratory failure secondary to acute on chronic systolic heart failure, present on admission ?- ER provider discussed with [facility] cardiology group, recommended diuresis. Given 60 mg of IV lasix in the ER. Some concern for low flow state as CXR appears clear and he has no leg edema. TTE pending. ?- DANGELO, hepatopathy can be from volume overload, may also represent low flow state given EF previously of 15%. ?- check limited TTE to assess EF, pending read. ?-?continue lasix 80 mg IV BID for now, is slightly improved today. ?- discussed poor prognosis with patient and his and they are interested in hospice ?- trend creatinine and LFTs. ?- patient was taking Bumex 1 mg BID as an outpatient and still developed worsening symptoms. 2. atrial fibrillation / flutter with PPM, presumed chronic ?- continue metoprolol, borderline rate control, occasionally rates in the low 100s, but generally <110. ?- continue home coumadin 3. HTN, chronic ?- continue home medications 4. HLD, chronic ?- continue home medications 5. amyloidosis, chronic ?- continue home tafamidis 61 mg, will probably need to bring from home. 6. hx of CAD ?- continue asa, statin 7. NSVT ?- patient with episode of NSVT on monitor shortly after arrival to floor. again this morning. PPM in place. Patient asymptomatic. 8. DANGELO ?- baseline creatinine 1.83, baseline appears around 1.1. Improved to 1.53 with diuresis. ?- likely congestion rather than low flow state. 9. Elevated bilirubin ?- likely congestive hepatopathy. Continue diuresis. code:? Full as discussed with the patient, surrogate decision maker is the patient's DVT:? On Coumadin I have utilized all available immediate resources to obtain, update, or review the patient's current medications. Time Spent With Patient Critical Care time: I spent a total of [] minutes of critical care time on this patient's care today; this time is exclusive of procedural time. Quality VTE Deep Vein Thrombosis/Pulmonary Embolism Present on Admission: No
[2021-03-13] MEDS: WARFARIN 5 MG TABLET 2.5 MG PO (17:16)
--- NOTE | 2021-03-13 19:55 | PC.NURSE ---
Event note: 10 beats Alida, ANIL Mckenna notified, no new orders at this time
[2021-03-13] MEDS: TAFAMIDIS 61 MG 61 EACH PO (20:19)
[2021-03-13] MEDS: METOPROLOL ER 50 MG TABLET 100 MG PO (20:19)
[2021-03-13] MEDS: ATORVASTATIN 20 MG TABLET 5 MG PO (20:19)
--- NOTE | 2021-03-14 02:11 | PC.NURSE ---
Addendum entered by Perlita Davila R.N. 03/14/21 06:08: Weight down 3.3kg but is expected due to increase in Lasix yesterday. Up to bathroom this morning and is unsteady and SOB with the exertion. Original Note: Patient seems to be more confused tonight. Initially stated month was July but self corrected to February. In response to place he stated he was at [facility] but again self corrected. States his age is 40. Is forgetful and impulsive. Currently talking in his sleep. Breath sounds CTA with RA sat of 96%. Denies SOB except states in evening he gets SOB with activity. Continues to have intermittent, dry, non-productive cough. HR irregular and tachy in low 100's; telemetry reading was afib RVR w/BBB. Denied nausea. BT present and abdomen is soft. Denies dysuria with urination but states he has to void frequently mostly related to diuretic use. Is able to move himself in bed. When out of bed is provided SBA for safety. Denied pain. Fall risk score is high and bed alarm is activated.
[2021-03-14 05:25] VITALS: BP 103/56; PULSE 96; RESP 18; TEMP 36.6; O2SAT 96
[2021-03-14 05:43] LABS: INR 2.4 (0.9-1.3); Prothrombin Time 27.4 SECONDS (10.1-12.7)
[2021-03-14 05:45] LABS: Hematocrit 38.7 % (41-53); Hemoglobin 12.6 g/dL (13.5-17.5); Mean Corpuscular HGB Conc 32.5 % (30-36); Mean Corpuscular Hemoglobin 27.1 PG (26-34); Mean Corpuscular Volume 83.5 fL (80-100); Platelet Count 170 X10^3/uL (150-400); Red Blood Cell Count 4.63 X10^6/uL (4.5-5.9); Red Cell Distribution Width 16.5 % (11.6-14.8); White Blood Cell Count 5.3 X10^3/uL (4.5-11.0)
[2021-03-14 05:51] LABS: Alanine Aminotransferase 32 IU/L (<50); Albumin 3.6 g/dL (3.5-5.0); Albumin Globulin Ratio 1.1 (1.0-2.8); Alkaline Phosphatase 242 U/L (38-126); Aspartate Aminotransferase 31 IU/L (17-59); BUN Creatinine Ratio 31.9 (6-22); Bilirubin Total 3.1 mg/dL (0.2-1.3); Bilirubin Unconjugated 2.9 mg/dL (0.0-1.1); Blood Urea Nitrogen 43 mg/dL (9-20); Calcium 9.2 mg/dL (8.4-10.2); Carbon Dioxide 30 mmol/L (22-32); Chloride 102 mmol/L (98-107); Estimated Glomerular Filt Rate 50.7 mL/min (>60); Globulin 3.2 g/dL (1.7-4.1); Glucose 97 mg/dL (80-110); HEMOLYSIS < 15 (0-50); Magnesium 2.5 mg/dL (1.6-2.3); Potassium 3.7 mmol/L (3.4-5.1); Sodium 137 mmol/L (137-145); Total Protein 6.8 g/dL (6.3-8.2)
[2021-03-14 06:00] LABS: NT-proBNP (BNP-Adult 18+) 10600 pg/mL (<450)
[2021-03-14 07:58] VITALS: BP 110/62; PULSE 80; RESP 17; TEMP 36.3; O2SAT 95
[2021-03-14] MEDS: FUROSEMIDE 100 MG/10 ML VIAL 80 MG IV (09:26)
[2021-03-14] MEDS: ASPIRIN EC 81 MG TABLET PO (09:26)
[2021-03-14] MEDS: SODIUM CHLORIDE 0.9% FLUSH 10 ML IV (09:27)
[2021-03-14 09:52] VITALS: O2SAT 94
--- NOTE | 2021-03-14 09:55 | PC.NURSE ---
Patient is alert but oriented x1 in the sourcer and x2 in days and when is here. Given 80mg of iv lasix and patient has used the urinal and voided 225cc of mukesh colored urine. He denies any pain or dysuria. He and his have talked about hospice and he may have a consult. Patient does get sob with some exertion when up ambulating. He is 94% on RA, his hands are usually cold, so at times is hard to get an accurate reading. Breath sounds are clear but diminished in the bases. He is sitting up in the chair so that he can watch the helicopter fly out. Patient was at [facility] in [place] and had a smiliar room with view of the helicopters, this has led to some confusion as patient thinks he is up in [place]. Patient has been thankful with his care here and cooperative with all care.
--- NOTE | 2021-03-14 10:40 | PT.IPTN ---
Current Diagnoses Heart failure, unspecified (03/12/21) Physical Therapy Treatment Note M2 PT-IP Current Condition Start: 03/13/21 15:37 Freq: NEEDED Status: Active Protocol: Document 03/13/21 13:00 AB (Rec: 03/13/21 15:54 AB [id number]) Physical Therapy Current Condition Current Condition Evaluation Date 03/13/21 Treatment Diagnosis CHF; A-fib; difficulty in walking Onset Date 03/12/21 Precautions Other Precautions falls, O2 sat M3 PT-IP Subjective Start: 03/13/21 15:37 Freq: NEEDED Status: Active Protocol: Document 03/14/21 10:40 AB (Rec: 03/14/21 11:38 AB [email or web address]) Subjective Physical Therapy Visit Type Type Treatment Note Visit Start Time 10:40 Visit Stop Time 11:08 Total Visit Minutes 28 Number of FLOOR ASSEMBLER Visits 0 Physical Therapy Visit Comments Patient Comments agreeable to do PT; spouse in room with pt M4 PT-IP Mobility and Gait Start: 03/13/21 15:37 Freq: NEEDED Status: Active Protocol: Document 03/14/21 10:40 AB (Rec: 03/14/21 11:38 AB [id number]) PT-Transfer Assessment Sit to and From Stand Sit to and from Stand Standby Assistance,Contact Guard Assistance,Minimal Assistance,1 Person Assistance ,Use of Upper Extremities Equipment Transfer Assistive Device None,Gait Belt Orthotic/Prosthetic Devices or Brace: No Comments Mobility Comments pt sitting on chair and agreed to do PT. spouse in room. O2 sat RA at rest 90%. informed nurse and agreed to give pt O2 sat during activity if needed. pt completed sit to stand CGA to min A and ambulated in room without AD ~ 20 ft. (+) LOB requiring min A for steadiness. pt ambulated back to the chair. O2 sat decreased to 83-84%. O2 provided 2L/min. O2 sat increased to 92% in 1-2 min. pt agreed to ambulate using FWW for steadiness/safety. completed ambulation again using FWW and with O2 on SBA to CGA and cues ~ 25 ft. O2 sat after ambulation 88%. caregiver training conducted. educated spouse on how to use safety belt and how to assist pt. spouse was able to put safety belt on and assisted pt with ambulation using FWW in room O2 used. Doctor came and talked to pt and spouse. O2 sat at end of tx session 92%. spouse stated that they have a FWW at home for pt to use and has no further concerns. spouse stated that they are considering hospice care for pt. Gait Assessment Gait Gait Assistance Required: Contact Guard Assist Distance (Feet) 25 Able to Maintain Weight Bearing Status Yes During Gait Assistive Devices Assistive Device None,Gait Belt,Front Wheeled Walker Orthotic/Prosthetic Devices or Brace: No Gait Deviations General Gait Pattern Ataxic,Decreased Stride Length ,Decreased Feet Clearance Factors Limiting Gait Function Factors Limiting Gait Function Decreased Activity Tolerance, Decreased Strength,Poor Balance,Poor Safety Awareness, Respiratory Distress Comments Gait Comments pls refer to mobility section for details M5 PT-IP Objective Assessments Start: 03/13/21 15:37 Freq: NEEDED Status: Active Protocol: Document 03/13/21 13:00 AB (Rec: 03/13/21 15:54 AB [email or web address]) Orientation Orientation/Cognition Level of Alertness Alert Orientation Name Language Function Ability No Deficits Noted Safety Awareness Decreased Safety Awareness Memory Description No Deficits Noted Gross Range of Motion Lower Extremity ROM Assessment Within Functional Limits Strength Lower Extremity Strength Assessment Within Functional Limits Coordination Assessment Gross Coordination Gross Coordination WNL Sensation Assessment Sensation Gross Sensation WNL Muscle Tone Muscle Tone WNL Yes M6 PT-IP Treatment Start: 03/13/21 15:37 Freq: NEEDED Status: Active Protocol: Document 03/14/21 10:40 AB (Rec: 03/14/21 11:38 AB [email or web address]) Physical Therapy Treatment Education Education Provided Safety M7 PT-IP Assessment and Plan Start: 03/13/21 15:37 Freq: NEEDED Status: Active Protocol: Document 03/14/21 10:40 AB (Rec: 03/14/21 11:38 AB [email or web address]) PT Summary Assessment and Plan Potential Rehabilitation Potential Good Summary Impairments Pain,ROM,Strength,Balance, Coordination,Sensation,Tone, Cognition,Bed Mobility, Transfers,Gait,Activity Tolerance Progress Towards Goals Slow Progress due to Medical Issues Assessment Summary pt continues to have decrease O2 sat with ambulation. caregiver training conducted and spouse was able to assist pt with mobility. recommending use of FWW for steadiness and safety. pt and spouse agreed. pt and spouse are considering hospice care at home. Goals Bed Mobility Goal Independent Transfer Goal Independent Gait Goal Independent Gait Distance 150 Other Goals up/down 5 steps R rail ascending I Days to Meet Goals 5 Frequency of Treatment Frequency Of Treatment Once a Day Treatment Plan Physical Therapy Treatment Plan Bed Mobility Training,Transfer Training,Gait Training, Therapeutic Exercise,Balance Retraining,Discharge Planning, Neuromuscular Re-ed, Coordination Retraining Precautions Other Precautions O2 sat Recommendations To Nursing Amount of Assist Needed 1 Person Assist Discharge Recommendations PT Discharge Recommendations Home with Assistance,Home Health Transportation Needs at Discharge Private Vehicle
[2021-03-14 10:59] VITALS: O2SAT 94
[2021-03-14 11:46] VITALS: BP 107/77; PULSE 90; RESP 17; TEMP 36.4; O2SAT 90
--- NOTE | 2021-03-14 12:07 | PM.DS.1 ---
History of Present Illness History of Present Illness Chief complaint: SOB, Cough, Low O2, Sent from [facility] Narrative: Per Dr. Devine: This is an 80-year-old male with a past medical history of amyloidosis and CHF with reduced ejection fraction (most recently around 15% at [place]), PE, DVT, hypertension, hyperlipidemia, atrial fibrillation and bradycardia with pacemaker placement, and a history of CAD who was referred to the emergency room for shortness of breath by his primary care provider's office today.? Patient states that he was admitted to [facility] a few weeks ago (per review it appears to be closer to a few months) with what sounds to be atrial fibrillation with rapid ventricular response.? He was feeling well at the time of discharge but he says a few days after arriving at home he became short of breath.? This has been progressively worsening over some time.? He states that the last 2 or 3 days he has had worsening dyspnea on exertion.? He is able to walk about 150 ft he says before he gets short of breath at baseline, and up approximately 15 steps.? Recently he can only move a few feet before becoming short of breath.? He denies shortness of breath at rest.? He denies any palpitations or chest pain, nausea, vomiting, lightheadedness, fevers, chills, abdominal pain, dysuria, urinary frequency, lower extremity edema. In the emergency room, patient was noted to be in atrial fibrillation and flutter, he appeared tachypneic and was 86% on room air but improved to 97% on 2 L. initial laboratory evaluation revealed an unremarkable CBC, INR of 2.8, creatinine of 1.83 which is up from a few months where it was 1.1.? Total bilirubin was also elevated at 3.5, this was not fractionated.? Troponin was less than his prior values at 0.051.? [place] [address], much higher than his previously drawn the lab values.? Procalcitonin was negative.? COVID-19 testing was negative.? Patient was admitted for acute respiratory failure with hypoxia secondary to decompensated systolic heart failure. Discharge Providers Provider Date of admission: 03/12/21 16:03 Discharge Date: 03/14/21 Primary care physician: Pedro Verma MD Consults: 03/13/21 10:05 Consult to Physical Therapy Evaluate & Treat Comment: Physician Instructions: Evaluate and Treat 03/13/21 14:56 Consult to Hospice Referral Routine Comment: 03/14/21 11:22 Consult to Respiratory Therapy Evaluate & Treat Comment: for home O2 Physician Instructions: Evaluate and treat Discharge provider: Julian Coreas MD Summary Hospital Course Discharge Diagnosis: 1. Acute respiratory failure secondary to acute on chronic systolic heart failure, EF 15-20% 2. Chronic amyloid cardiomyopathy 3. Atrial fibrillation with PPM, chronic 4. HTN 5. HL 6. CAD 7. DANGELO Hospital Course: Mr. Saleh came in to the hospital with severe shortness of breath. He has known severe amyloid cardiomyopathy with EF known to be 15-20%. He was diuresed here. He had repeat ECHO done which showed stable EF and also significant right ventricular dysfunction. With diuresis he was able to get off oxygen at rest. His DANGELO improved. However, he remained profound short of breath with exertion, and because of this oxygen was prescribed for him. He has end stage heart failure from advanced amyloid cardiomyopathy. His stated that is child protective services social worker told them that he should focus on being comfortable. He has continued to worsen despite being on tafamidis. After discussion with him and his they are interested in hospice and plan to sign up, referral was given. He was discharged on oxygen and with bumex twice daily. He is on metoprolol, but not on an addie inhibtior/arb due to elevated creatinine. Exam Vital Signs (past 8 hours): Oxygen Delivery Method Room Air Oxygen Flow Rate 0 Narrative Exam Narrative: GENERAL APPEARANCE: no acute distress LUNGS: clear with no wheezes, rhonchi, or rales. CARDIOVASCULAR: regular rate, irregularly irregular rhythm. No murmurs ABDOMEN: Soft and nontender with normal bowel sounds. No ascites was noted. MUSCULOSKELETAL: There was no tenderness or effusions noted. Muscle strength and tone were normal. EXTREMITIES: No cyanosis, clubbing or edema. NEUROLOGIC: Alert and oriented x 3. Normal affect. Objective Labs Result Diagrams: 03/14/21 05:15 03/14/21 05:15 [facility] Medical History 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 Atrial fibrillation Bradycardia Chicken pox Diverticular disease DVT (deep venous thrombosis) Fractures Hyperbilirubinemia Hypertension Measles Plantar warts Pulmonary embolism Surgical History Anesthesia History of appendectomy History of broken leg (~2013) History of carpal tunnel surgery (~2014) History of cataract surgery (~2009) History of knee replacement History of prostate surgery (~1999) History of surgery (~2015) Pacemaker (~2003) Family History Mother Cancer Father Congestive heart failure Other Leukemia Social History household members: spouse Smoking Status: Never smoker alcohol intake: never Discharge Plan Discharge Plan Patient Disposition: Home Provider Discharge Comment: Mr. Saleh came in to the hospital with shortness of breath. He has profoundly low ejection fraction with congestive heart failure. He was given medication to help him urinate and felt better. He should follow up quickly with his primary care doctor and his child protective services social worker as his EF makes it likely that he will continue to have trouble with his CHF. He is interested in a referral to hospice. He had a drop in his oxygen saturation with ambulating on room air to the 70s to low 80s and was arranged for home oxygen. Discharge orders & Medications Prescriptions: Continued metoprolol succinate 100 mg tablet extended release 24 hr 100 mg PO BID RF: 0 aspirin [Adult Low Dose Aspirin] 81 mg tablet,delayed release (DR/EC) 81 mg PO QAM RF: 0 tafamidis 61 mg capsule 61 mg PO BEDTIME RF: 0 warfarin 5 mg tablet 2.5 mg PO QPM RF: 0 atorvastatin 10 mg tablet 5 mg PO BEDTIME RF: 0 bumetanide 1 mg tablet 1 mg PO BID Qty: 60 RF: 0 Follow up/Referrals: [facility] [Provider Group] (admitted to [facility] with CHF exacerbation, follow up julián) [facility] [Provider Group] (probable amyloid cardiomyopathy, EF 15%, already on tafamidis, wondering about second opinion) Pedro Verma MD [Primary Care Provider] - Diet/Activity/Treatments Diet: Low-sodium Visit Report/Discharge Packet Instructions: Heart Failure, DI for Heart Failure Discharge Data Primary Care Provider: Pedro Verma Quality VTE Deep Vein Thrombosis/Pulmonary Embolism Present on Admission: No MIPS - DC The patient has current or prior documentation of left ventricular ejection fraction (LVEF) less than 40%, or moderate or severely depressed left ventricular systolic function.: Yes A. The patient was prescribed or already taking an Angiotensin-Converting Enzyme (ADDIE) Inhibitor, or Angiotensin Receptor Benoit (ARB).: No B. The patient was prescribed or already taking a beta-benoit. [If Yes to Both A & B, STOP here]: Yes Patient not prescribed/taking ADDIE or ARB for medical/patient/system reason(s) including (ex: allergy, intolerance, contraindication).: contraindicated due to elevated creatinine, amyloid cardiomyopathy
--- NOTE | 2021-03-14 15:21 | CM.DPNOTE ---
DCP Note Met w/patient and spouse this morning to review DCP. Spouse was planning on taking patient home and requested that [facility] be contacted again to ask about scheduling the info visit? Reyna at [facility] had updated this PROCESSING REP; that spouse told the [facility] pediatric social worker I want to wait until I get him home to talk further. According to ANIL Miguel, patient cleared from a therapy point of view to return home w/spouse. Patient will return home w/O2 No further identified needs from this PROCESSING REP. Will plan to fax DC Summary to [facility] if available today. Plan: DC home w/family and continued coordination between spouse and [facility] to initiate end of life services JW
== END 2021-03-14 15:20 | disposition home or self-care (01) | DRG 291 ==
LOC: ED 16:17 → AC 16:43
PROVIDERS: Internal Medicine; Admitting Provider Internal Medicine; Emergency Provider Emergency Medicine; Family Provider Family Medicine; PCP Family Medicine; Referring Provider Emergency Medicine; Visit Provider Internal Medicine
DX: I11.0 Hypertensive heart disease with heart failure (principal); J96.01 Acute respiratory failure with hypoxia; N17.9 Acute kidney failure, unspecified; I48.20 Chronic atrial fibrillation, unspecified; I48.92 Unspecified atrial flutter; I47.2 Ventricular tachycardia; E85.4 Organ-limited amyloidosis; I50.23 Acute on chronic systolic (congestive) heart failure; I43 Cardiomyopathy in diseases classified elsewhere; I50.84 End stage heart failure; E78.5 Hyperlipidemia, unspecified; I25.10 Atherosclerotic heart disease of native coronary artery without angina pectoris; Z79.01 Long term (current) use of anticoagulants; Z20.822 Contact with and (suspected) exposure to COVID-19; Z95.0 Presence of cardiac pacemaker
CPT/HCPCS: 36415; 71045; 80048; 80053; 80076; 81003; 82550; 83605; 83690; 83735; 83880; 84145; 84443; 84484; 85025; 85027; 85610; 85730; 87040; 87150; 87205; 93005; 93010; 93307; 94618; 94760; 94762; 96374; 97116; 97162; 97530; 99284; 99285; G0378; U0003; J1940

== ENCOUNTER 2021-04-15 10:04 | Emergency (ER) | payer MEDICARE, SELFPAY ==
[2021-03-12 16:26] VITALS: BMI 26.9
[2021-04-15] VITALS (18 sets, daily range): BP systolic 91–121; BP diastolic 67–85; PULSE 97–115; RESP 15–29; TEMP 36.2–36.6; O2SAT 85–97; BMI 26.2
--- NOTE | 2021-04-15 10:09 | DI.RAD.S_ITS ---
PROCEDURE: XR CHEST 1V INDICATIONS: shortness of breath TECHNIQUE: One view of the chest was acquired. COMPARISON: Located Within [facility], , XR CHEST 1V, 03/11/2021, 13:40. FINDINGS: Surgical changes and devices: Left chest wall pacemaker leads are in the region of right atrium and right ventricle. Lungs and pleura: Lungs are clear. No pleural effusions or pneumothorax. Mediastinum: Mediastinal contours appear normal. Heart size is markedly enlarged Bones and chest wall: No suspicious bony lesions. Overlying soft tissues appear unremarkable. IMPRESSION: Cardiomegaly. No acute pulmonary pathology. Dictated by: Polo Myers M.D. on 04/15/2021 at 10:25 Approved by: Polo Myers M.D. on 04/15/2021 at 10:30
--- NOTE | 2021-04-15 10:10 | ED_ITS ---
HPI - SOB/Dyspnea General Chief Complaint: Shortness of Breath/Dyspnea Stated Complaint: SOB Time Seen by Provider: 04/15/21 10:08 History of Present Illness HPI Narrative: 80M nonsmoker with extensive medical history including CHF, chronic AFib on anticoagulation with a pacemaker, prior DVT, on home oxygen at 3-3.5 L daily presents by EMS for evaluation of increasing work of breathing and shortness of breath over the course of the morning. He started feeling a bit under weather yesterday but today started feeling much worse. He states that his shortness of breath is worse with exertion and with lying flat. On arrival EMS found him to be with significant increased work of breathing and took him from his nasal cannula to a non-rebreather and on arrival here he is feeling much better with improved saturations, now in the mid 90s. He denies chest pain or palpitations. He denies fever or chills. He has had no nausea, vomiting or diarrhea. Of note, was recently admitted at [facility] for cardiac issues and was discharged 9 days ago, we are waiting receipt of his records. Related Data Home Medications Medication Instructions Recorded Confirmed atorvastatin 10 mg tablet 5 mg PO BEDTIME 07/25/19 04/15/21 tafamidis 61 mg capsule 61 mg PO BEDTIME 10/16/20 04/15/21 aspirin 81 mg tablet,delayed 81 mg PO QAM 01/21/21 04/15/21 release (Adult Low Dose Aspirin) metoprolol succinate 100 mg 100 mg PO BID 01/21/21 04/15/21 tablet,extended release 24 hr warfarin 5 mg tablet 5 mg PO QPM tab 03/07/21 04/15/21 Previous Rx's Medication Instructions Recorded bumetanide 1 mg tablet 1 mg PO BID #180 tab 03/21/21 Allergies Allergy/AdvReac Type Severity Reaction Status Date / Time No Known Drug Allergies Allergy Verified 03/21/21 13:48 Review of Systems Review of Systems Narrative: GENERAL: See HP HEENT: Denies sinus pain, ear pain, sore throat, difficulty swallowing, dizziness. RESPIRATORY: See HPI CARDIOVASCULAR: Denies chest pain, palpitations, orthopnea, edema, GASTROINTESTINAL: Denies nausea, vomiting, abdominal pain, diarrhea, constipation, melena. : Denies dysuria, frequency, incontinence, hematuria, urinary retention. MUSCULOSKELETAL: denies weakness, joint pain, or bony pain SKIN: Denies rash, skin lesions, or other NEUROLOGIC: Denies weakness, headache, numbness, change in speech, confusion, seizures, incoordination. PSYCHIATRIC: No concerning psychosocial issues. 12 point review of systems is negative except for those stated above Patient History Medical History 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 Atrial fibrillation Bradycardia Chicken pox Diverticular disease DVT (deep venous thrombosis) Fractures Hyperbilirubinemia Hypertension Measles Plantar warts Pulmonary embolism Surgical History Anesthesia History of appendectomy History of broken leg (~2013) History of carpal tunnel surgery (~2014) History of cataract surgery (~2009) History of knee replacement History of prostate surgery (~1999) History of surgery (~2015) Pacemaker (~2003) Family History Mother Cancer Father Congestive heart failure Other Leukemia Social History household members: spouse Smoking Status: Never smoker alcohol intake: never Smoking Status: Never smoker alcohol intake frequency: 0-2 drinks per day Substance Use Type: does not use Exam Narrative Exam Narrative: GENERAL: [80 year old patient appears stated age. Well-developed patient, in mild distress. HEAD: Atraumatic. Normocephalic. EYES: Pupils equal round and reactive. Extraocular motions intact. No scleral icterus. No injection or drainage. ENT: Nose without bleeding, purulent drainage. Throat without erythema, ton sillar hypertrophy or exudate. Airway patent. NECK: Trachea midline. Non tender CARDIOVASCULAR: Regular rate with irregular rhythm without murmurs, gallops, or rubs. RESPIRATORY: No active or significant increased work of breathing, prolonged expiratory phase, decreased breath sounds throughout with faint crackles in bilateral bases, right greater than left GASTROINTESTINAL: Abdomen soft, non-tender, nondistended. EXTREMITIES: No edema or joint tenderness. BACK: Nontender without deformity or crepitance. No flank tenderness. NEURO: AOx3. SKIN: No rash or erythema of visible areas Initial Vital Signs Initial Vital Signs: Vital Signs Temperature 97.1 F L 04/15/21 10:11 Pulse Rate 111 H 04/15/21 10:11 Respiratory Rate 22 04/15/21 10:11 Blood Pressure 118/76 04/15/21 10:11 Pulse Oximetry 97 04/15/21 10:11 Course Orders Ordered: Discontinued Medications Furosemide (Furosemide 40 Mg/4 Ml Vial) 40 mg IV NOW ONE Stop: 04/15/21 10:38 Last Admin: 04/15/21 10:50 Dose: 40 mg Documented by: NETO Reevaluation(s) Reevaluation #1: Patient continues to be resting comfortably. He is was taken off the non-rebreather and has been on 3-4 L by nasal cannula for the duration of his visit. Consultations Consultation #1: Call to on-call Cardiology at [facility]. Per their notes the patient should be on a higher dose of Bumex at home. He has end-stage amyloid CHF and there is very little therapeutic value at changing other medications and there is discussion among ext their electric motor tester that hospice should be involved sooner rather than later Vital Signs Vital signs: Vital Signs - 8 hr 04/15/21 10:11 04/15/21 10:17 04/15/21 10:30 Temperature 97.1 F L Pulse Rate 111 H 113 H 104 H Respiratory Rate 22 24 24 Blood Pressure 118/76 Pulse Oximetry 97 90 L 93 04/15/21 11:00 04/15/21 11:30 04/15/21 11:33 Temperature Pulse Rate 103 H 106 H 108 H Respiratory Rate 19 24 22 Blood Pressure 108/81 108/81 Pulse Oximetry 92 94 92 04/15/21 11:58 04/15/21 12:00 04/15/21 12:30 Temperature 97.8 F Pulse Rate 104 H 112 H Respiratory Rate 18 22 Blood Pressure Pulse Oximetry 92 93 04/15/21 12:42 04/15/21 13:00 04/15/21 13:01 Temperature Pulse Rate 107 H 111 H 107 H Respiratory Rate 20 29 H 15 Blood Pressure 106/79 121/80 Pulse Oximetry 93 91 91 04/15/21 13:30 04/15/21 14:06 04/15/21 14:30 Temperature Pulse Rate 107 H 109 H 106 H Respiratory Rate 22 23 22 Blood Pressure 106/74 96/69 109/81 Pulse Oximetry 93 93 92 04/15/21 15:00 04/15/21 15:01 Temperature Pulse Rate 109 H 115 H Respiratory Rate 25 H 22 Blood Pressure 91/67 Pulse Oximetry 85 L 93 MDM - SOB/Dyspnea Lab Data Result diagrams: 04/15/21 10:10 04/15/21 10:10 Labs: Lab Results 04/15/21 04/15/21 04/15/21 Range/Units 10:08 10:10 10:10 WBC 6.0 (4.5-11.0) X10^3/uL RBC 4.91 (4.5-5.9) X10^6/uL Hgb 12.7 L (13.5-17.5) g/dL Hct 39.3 L (41-53) % MCV 80.2 (80-100) fL MCH 25.8 L (26-34) PG MCHC 32.2 (30-36) % RDW 17.5 H (11.6-14.8) % Plt Count 196 (150-400) X10^3/uL Neut % (Auto) 59.7 (50-75) % Lymph % (Auto) 28.5 (25-40) % Reeves % (Auto) 10.3 (3-14) % Eos % (Auto) 0.8 L (2-4) % Baso % (Auto) 0.7 (0-2) % Neut # (Auto) 3600 (0442-6716) /uL Lymph # (Auto) 1700 (2795-5056) /uL Reeves # (Auto) 600 (0-900) /uL Eos # (Auto) 0 (0-450) /uL Baso # (Auto) 0 (0-100) /uL PT 31.8 H (10.1-12.7) SECONDS INR 2.7 H (0.9-1.3) ABG pH 7.44 (7.35-7.45) ABG pCO2 43.0 (35-45) mmHg ABG pO2 143 H (80-100) mmHg ABG HCO3 30 H (22-26) mmol/L ABG Total CO2 31 (21-31) mmol/L ABG O2 Saturation 99 (95-100) % ABG Base Excess 5.0 H (-2-2) mmol/L FiO2 100 Sodium (137-145) mmol/L Potassium (3.4-5.1) mmol/L Chloride (98-107) mmol/L Carbon Dioxide (22-32) mmol/L BUN (9-20) mg/dL Creatinine (0.66-1.25) mg/dL Estimated GFR (>60) mL/min BUN/Creatinine Ratio (6-22) Glucose (80-110) mg/dL Lactate (0.7-2.1) mmol/L Calcium (8.4-10.2) mg/dL Magnesium (1.6-2.3) mg/dL Total Bilirubin (0.2-1.3) mg/dL AST (17-59) IU/L ALT (<50) IU/L Alkaline Phosphatase (38-126) U/L Total Creatine Kinase (55-170) U/L CK-MB (CK-2) CK-MB (CK-2) Rel Index Troponin I (0.01-0.034) ng/mL NT-Pro-B Natriuret Pep (<450) pg/mL Total Protein (6.3-8.2) g/dL Albumin (3.5-5.0) g/dL Globulin (1.7-4.1) g/dL Albumin/Globulin Ratio (1.0-2.8) Procalcitonin (<0.5) ng/mL SARS-CoV-2 (PCR) (Negative) 04/15/21 04/15/21 04/15/21 Range/Units 10:10 10:10 10:10 WBC (4.5-11.0) X10^3/uL RBC (4.5-5.9) X10^6/uL Hgb (13.5-17.5) g/dL Hct (41-53) % MCV (80-100) fL MCH (26-34) PG MCHC (30-36) % RDW (11.6-14.8) % Plt Count (150-400) X10^3/uL Neut % (Auto) (50-75) % Lymph % (Auto) (25-40) % Reeves % (Auto) (3-14) % Eos % (Auto) (2-4) % Baso % (Auto) (0-2) % Neut # (Auto) (9556-5882) /uL Lymph # (Auto) (3651-4405) /uL Reeves # (Auto) (0-900) /uL Eos # (Auto) (0-450) /uL Baso # (Auto) (0-100) /uL PT (10.1-12.7) SECONDS INR (0.9-1.3) ABG pH (7.35-7.45) ABG pCO2 (35-45) mmHg ABG pO2 (80-100) mmHg ABG HCO3 (22-26) mmol/L ABG Total CO2 (21-31) mmol/L ABG O2 Saturation (95-100) % ABG Base Excess (-2-2) mmol/L FiO2 Sodium 136 L (137-145) mmol/L Potassium 4.1 (3.4-5.1) mmol/L Chloride 96 L (98-107) mmol/L Carbon Dioxide 33 H (22-32) mmol/L BUN 48 H (9-20) mg/dL Creatinine 1.54 H (0.66-1.25) mg/dL Estimated GFR 43.6 L (>60) mL/min BUN/Creatinine Ratio 31.2 H (6-22) Glucose 136 H (80-110) mg/dL Lactate 2.0 (0.7-2.1) mmol/L Calcium 9.3 (8.4-10.2) mg/dL Magnesium 2.4 H (1.6-2.3) mg/dL Total Bilirubin 3.0 H (0.2-1.3) mg/dL AST 41 (17-59) IU/L ALT 37 (<50) IU/L Alkaline Phosphatase 300 H (38-126) U/L Total Creatine Kinase 51 L (55-170) U/L CK-MB (CK-2) TNP CK-MB (CK-2) Rel Index TNP Troponin I 0.056 H (0.01-0.034) ng/mL NT-Pro-B Natriuret Pep 00592 H (<450) pg/mL Total Protein 7.5 (6.3-8.2) g/dL Albumin 4.0 (3.5-5.0) g/dL Globulin 3.5 (1.7-4.1) g/dL Albumin/Globulin Ratio 1.1 (1.0-2.8) Procalcitonin 0.16 (<0.5) ng/mL SARS-CoV-2 (PCR) (Negative) 04/15/21 Range/Units 10:10 WBC (4.5-11.0) X10^3/uL RBC (4.5-5.9) X10^6/uL Hgb (13.5-17.5) g/dL Hct (41-53) % MCV (80-100) fL MCH (26-34) PG MCHC (30-36) % RDW (11.6-14.8) % Plt Count (150-400) X10^3/uL Neut % (Auto) (50-75) % Lymph % (Auto) (25-40) % Reeves % (Auto) (3-14) % Eos % (Auto) (2-4) % Baso % (Auto) (0-2) % Neut # (Auto) (5359-7382) /uL Lymph # (Auto) (8657-7555) /uL Reeves # (Auto) (0-900) /uL Eos # (Auto) (0-450) /uL Baso # (Auto) (0-100) /uL PT (10.1-12.7) SECONDS INR (0.9-1.3) ABG pH (7.35-7.45) ABG pCO2 (35-45) mmHg ABG pO2 (80-100) mmHg ABG HCO3 (22-26) mmol/L ABG Total CO2 (21-31) mmol/L ABG O2 Saturation (95-100) % ABG Base Excess (-2-2) mmol/L FiO2 Sodium (137-145) mmol/L Potassium (3.4-5.1) mmol/L Chloride (98-107) mmol/L Carbon Dioxide (22-32) mmol/L BUN (9-20) mg/dL Creatinine (0.66-1.25) mg/dL Estimated GFR (>60) mL/min BUN/Creatinine Ratio (6-22) Glucose (80-110) mg/dL Lactate (0.7-2.1) mmol/L Calcium (8.4-10.2) mg/dL Magnesium (1.6-2.3) mg/dL Total Bilirubin (0.2-1.3) mg/dL AST (17-59) IU/L ALT (<50) IU/L Alkaline Phosphatase (38-126) U/L Total Creatine Kinase (55-170) U/L CK-MB (CK-2) CK-MB (CK-2) Rel Index Troponin I (0.01-0.034) ng/mL NT-Pro-B Natriuret Pep (<450) pg/mL Total Protein (6.3-8.2) g/dL Albumin (3.5-5.0) g/dL Globulin (1.7-4.1) g/dL Albumin/Globulin Ratio (1.0-2.8) Procalcitonin (<0.5) ng/mL SARS-CoV-2 (PCR) Negative (Negative) Imaging Data Chest x-ray: Radiologist's Impression: Anamaria Saleh??80??M??1940 ? Allergy/Adv: No Known Drug Allergies (More??) Close Chest X-Ray (Signed) Polo Myers - 04/15/21 Telemetry Strips 03/12/21 Chest X-Ray (Signed) Benjy Ramon - 03/11/21 DI Result CC 12/25/20 DI Result CC 12/24/20 DI Result CC 12/23/20 Chest X-Ray (Signed) Demond Ardon - 12/23/20 Abdomen/Pelvis CT (Signed) Norberto Galeano - 12/22/20 Chest CTA (Signed) Norberto Galeano - 12/22/20 Chest X-Ray (Signed) Norberto Galeano - 12/22/20 Telemetry Strips 12/22/20 Abdomen Ultrasound (Signed) Mike Szymanski - 10/18/20 Abdomen/Pelvis CT (Signed) Brenda Curiel - 07/17/20 Telemetry Strips 05/14/20 Chest X-Ray (Signed) Brenda Curiel - 05/14/20 Vascular Ultrasound (Signed) Ed Ortiz - 07/25/19 Radiology - Historical 10/16/16 Radiology - Historical 10/16/16 Radiology - Historical 10/16/16 Radiology - Historical 10/16/16 Radiology - Historical 10/16/16 Launch?[address] [address] XRay Report Signed Patient: Anamaria Saleh MR#: [id number] : 1940 Acct:[id number] Age/Sex: 80 / M Date of Service: 04/15/21 Loc: ED Accession Number: [id number] ?? Procedure: XR chest 1V Ordering Provider: Dustin Becker D.O. PROCEDURE:? XR CHEST 1V ? INDICATIONS:? shortness of breath ? TECHNIQUE:? One view of the chest was acquired.? ? COMPARISON:? [facility], CR, XR CHEST 1V, 03/11/2021, 13:40. ? FINDINGS:? ? Surgical changes and devices:? Left chest wall pacemaker leads are in the region of right atrium and right ventricle. ? Lungs and pleura:? Lungs are clear.? No pleural effusions or pneumothorax.? ? Mediastinum:? Mediastinal contours appear normal.? Heart size is markedly enlarged ? Bones and chest wall:? No suspicious bony lesions.? Overlying soft tissues appear unremarkable.? ? IMPRESSION:? Cardiomegaly.? No acute pulmonary pathology. ? ? Dictated by: Polo Myers M.D. on 04/15/2021 at 10:25 ? ? Approved by: Polo Myers M.D. on 04/15/2021 at 10:30 ? ECG Data Interpretation: EKG: Atrial fibrillation with rate of 94. No other ectopy. No ST segmental elevations or depressions. Occasional ventricular paced complexes noted MDM Narrative Medical decision making narrative: Patient with end-stage CHF had an episode of significant shortness of breath prior to arrival. He has been stable and on his baseline level of oxygen for the majority of his visit. Chest x-ray is clear, labs are largely at his baseline. Cardiology recommends increasing his morning dose of Bumex and following up closely. Return precautions have been given and questions answered to their apparent satisfaction Discharge Plan Departure Patient Disposition: Home Clinical Impression: Amyloidosis Qualifiers: Amyloidosis type: unspecified amyloidosis Qualified Code(s): E85.9 - Amyloidosis, unspecified CHF (congestive heart failure) Qualifiers: Heart failure type: unspecified Heart failure chronicity: acute Qualified Code(s): I50.9 - Heart failure, unspecified Instructions: DI for Heart Failure, DI for Atrial Fibrillation Activity Restrictions/Additional Instructions: *You have been diagnosed with [acute CHF exacerbation and atrial fibrillation. *What to do: * as we discussed, please increase your morning dose of bumetanide to 2 mg, otherwisecontinue to take your regular medications as directed. [ ] New medication prescriptions sent to your pharmacy: [ ] [ ] New medication written as a paper prescription [ ] No new medications given *Please follow up with your electric motor tester in 2-3 days, call for an appointment. Let them know you were seen in the Emergency Department and that we ask that you be seen in follow up. We will electronically transmit a record of today's note if your PCP is in our system *If you do not have a primary care provider please contact the [facility] Resource line at [phone]. They will ask some questions about your medical history and help get you set up with a doctor in the community. *Return to Emergency Department if you should have any new, worsening or concerning symptoms, such as [fever greater than 101 F, shaking chills, worsening pain, persistent vomiting or other bothersome symptoms] Prescriptions: No Action metoprolol succinate 100 mg tablet extended release 24 hr 100 mg PO BID RF: 0 aspirin [Adult Low Dose Aspirin] 81 mg tablet,delayed release (DR/EC) 81 mg PO QAM RF: 0 bumetanide 1 mg tablet 1 mg PO BID Qty: 180 RF: 2 tafamidis 61 mg capsule 61 mg PO BEDTIME RF: 0 warfarin 5 mg tablet 5 mg PO QPM RF: 0 atorvastatin 10 mg tablet 5 mg PO BEDTIME RF: 0 Referrals: Pedro Verma MD [Primary Care Provider] -
[2021-04-15 10:34] LABS: Add Manual Diff / Slide Review NO; Basophils Absolute Auto 0 /uL (0-100); Basophils Percent Auto 0.7 % (0-2); Eosinophils Absolute Auto 0 /uL (0-450); Eosinophils Percent Auto 0.8 % (2-4); Hematocrit 39.3 % (41-53); Hemoglobin 12.7 g/dL (13.5-17.5); Lymphocytes Absolute Auto 1700 /uL (1100-4500); Lymphocytes Percent Auto 28.5 % (25-40); Mean Corpuscular HGB Conc 32.2 % (30-36); Mean Corpuscular Hemoglobin 25.8 PG (26-34); Mean Corpuscular Volume 80.2 fL (80-100); Monocytes Absolute Auto 600 /uL (0-900); Monocytes Percent Auto 10.3 % (3-14); Neutrophils Absolute Auto 3600 /uL (1500-7000); Neutrophils Percent Auto 59.7 % (50-75); Platelet Count 196 X10^3/uL (150-400); Red Blood Cell Count 4.91 X10^6/uL (4.5-5.9); Red Cell Distribution Width 17.5 % (11.6-14.8)
[2021-04-15 10:39] LABS: Alanine Aminotransferase 37 IU/L (<50); Albumin Globulin Ratio 1.1 (1.0-2.8); Alkaline Phosphatase 300 U/L (38-126); Aspartate Aminotransferase 41 IU/L (17-59); BUN Creatinine Ratio 31.2 (6-22); Blood Urea Nitrogen 48 mg/dL (9-20); Calcium 9.3 mg/dL (8.4-10.2); Carbon Dioxide 33 mmol/L (22-32); Chloride 96 mmol/L (98-107); Creatine Kinase 51 U/L (55-170); Estimated Glomerular Filt Rate 43.6 mL/min (>60); Globulin 3.5 g/dL (1.7-4.1); Glucose 136 mg/dL (80-110); HEMOLYSIS < 15 (0-50); Magnesium 2.4 mg/dL (1.6-2.3); Potassium 4.1 mmol/L (3.4-5.1); Sodium 136 mmol/L (137-145); Total Protein 7.5 g/dL (6.3-8.2)
[2021-04-15 10:46] LABS: INR 2.7 (0.9-1.3); NT-proBNP (BNP-Adult 18+) 13800 pg/mL (<450); Prothrombin Time 31.8 SECONDS (10.1-12.7); Troponin I 0.056 ng/mL (0.01-0.034)
[2021-04-15] MEDS: FUROSEMIDE 40 MG/4 ML VIAL IV (10:50)
[2021-04-15 11:21] LABS: Procalcitonin 0.16 ng/mL (<0.5)
[2021-04-15 11:43] LABS: pH ABG 7.44 (7.35-7.45)
[2021-04-15 11:44] LABS: Fractionated Inspired Oxygen 100; HCO3 ABG 30 mmol/L (22-26); Oxygen Saturation ABG 99 % (95-100); PO2 ABG 143 mmHg (80-100); TCO2 ABG 31 mmol/L (21-31)
[2021-04-15 12:14] LABS: COVID19 - ADMIT (NP swab/PCR) Negative (Negative)
--- NOTE | 2021-04-15 13:43 | PC.NURSE ---
[employer] pacemaker interrogated, information sent.
== END 2021-04-15 16:26 | disposition home or self-care (01) ==
PROVIDERS: Emergency Provider Emergency Medicine; Family Provider Family Medicine; PCP Family Medicine
DX: E85.9 Amyloidosis, unspecified (principal); I50.9 Heart failure, unspecified; I48.91 Unspecified atrial fibrillation; Z79.01 Long term (current) use of anticoagulants; Z95.0 Presence of cardiac pacemaker; Z20.822 Contact with and (suspected) exposure to COVID-19
CPT/HCPCS: 36415; 36600; 71045; 80053; 82550; 82805; 83605; 83735; 83880; 84145; 84484; 85025; 85610; 87040; 87635; 93005; 96374; 99285; C9803; J1940